=== PATIENT | female | born 1930 | race African-American/Black ===

== ENCOUNTER → 2017-01-16 | Outpatient (CLI) | payer MEDICARE, OTHER ==
[2017-01-16 13:30] LABS: ALANINE AMINOTRANSFERASE 23 U/L (9-52); ALBUMIN 4.3 g/dL (3.5-5.0); ALKALINE PHOSPHATASE 52 U/L (38-126); ASPARTATE AMINO TRANSFERASE 21 U/L (14-36); BILIRUBIN,DIRECT 0.3 mg/dL (0.0-0.4); BILIRUBIN,TOTAL 0.6 mg/dL (0.2-1.3); TOTAL PROTEIN 7.8 g/dL (6.3-8.2)
== END ==
LOC: OD 11:56
PROVIDERS: ATTEND Radiology Radiation Oncology
DX: C50.211 Malignant neoplasm of upper-inner quadrant of right female breast (principal); Z79.899 Other long term (current) drug therapy
CPT/HCPCS: 36415; 80076

== ENCOUNTER 2017-02-15 10:33 | Emergency (ER) | payer MEDICARE, OTHER ==
[2017-02-15] MEDS ORDERED: DIPH/PERTUSS(ACELL)/TETANUS VAC/PF 0.5 ML SYR (>=10YO) IM ONE (11:19)
[2017-02-15] MEDS ORDERED: SILVER SULFADIAZINE 1% CREAM 25 GM TP ONE (11:22)
[2017-02-15] MEDS ORDERED: ACETAMINOPHEN 325 MG TABLET PO ONE (11:22)
--- NOTE | 2017-02-15 11:30 | ER Document Report ---
HPI - HPI Patient complains to provider of: skin burn Onset: Just prior to arrival Onset/Duration: Sudden Quality of pain: Burning Pain Level: 3 Context: Patient was carrying a cup of coffee on a saucer and started to lose supply technician of the saucer spilling the coffee on her left breast. Patient's daughter removed her clothing, applied ice and then better to the burn. Patient denies any other areas of her skin that got burned. Patient is diabetic and family was concerned about the wound. Associated Symptoms: Other - Burn to left breast Exacerbated by: Denies Relieved by: Denies Similar symptoms previously: No Recently seen / treated by doctor: No - ROS ROS below otherwise negative: Yes Systems Reviewed and Negative: Yes All other systems reviewed and negative - CONSTITUTIONAL Constitutional: DENIES: Fever - GASTROINTESTINAL Gastrointestinal: DENIES: Nausea, Patient vomiting - REPRODUCTIVE Reproductive: DENIES: : - DERM Skin Color: Normal Skin Problems: Burn Past Medical History - General Information source: Patient, Relative - Social History Smoking Status: Never Smoker Chew tobacco use (# tins/day): No Frequency of alcohol use: None Drug Abuse: None Occupation: none Lives with: Family Family History: Malignancy Patient has suicidal ideation: No Patient has homicidal ideation: No - Past Medical History Cardiac Medical History: Reports: Hx Congestive Heart Failure, Hx Coronary Artery Disease, Hx Heart Attack, Hx Hypercholesterolemia, Hx Hypertension Pulmonary Medical History: Reports: Hx Bronchitis, Hx Pneumonia Denies: Hx Asthma, Hx COPD, Hx Tuberculosis Neurological Medical History: Denies: Hx Cerebrovascular Accident, Hx Seizures Endocrine Medical History: Reports: Hx Diabetes Mellitus Type 2 Renal/ Medical History: Reports: Hx Renal Insufficiency. Denies: Hx Peritoneal Dialysis Malignancy Medical History: Reports: Hx Breast Cancer GI Medical History: Reports: Hx Gastroesophageal Reflux Disease, Hx Ulcer, Hx Colonoscopy. Denies: Hx Hepatitis, Hx Hiatal Hernia Musculoskeltal Medical History: Reports Hx Arthritis, Reports Hx Musculoskeletal Trauma Traumatic Medical History: Reports: Hx Fractures Infectious Medical History: Denies: Hx Hepatitis Past Surgical History: Reports: Hx Appendectomy, Hx Cardiac Catheterization, Hx Hysterectomy, Hx Lumpectomy, Hx Mastectomy - Right lumpectomy. Denies: Hx Open Heart Surgery, Hx Pacemaker - Immunizations Immunizations up to date: Yes Hx Diphtheria, Pertussis, Tetanus Vaccination: No - UNKNOWN Hx Pneumococcal Vaccination: 07/24/12 Vertical Provider Document - CONSTITUTIONAL Agree With Documented VS: Yes Exam Limitations: No Limitations General Appearance: WD/WN, No Apparent Distress - INFECTION CONTROL TRAVEL OUTSIDE OF THE [place] IN LAST 30 DAYS: No - HEENT HEENT: Atraumatic, Normocephalic - NECK Neck: Normal Inspection, Supple - RESPIRATORY Respiratory: Breath Sounds Normal, No Respiratory Distress O2 Sat by Pulse Oximetry: 99 - CARDIOVASCULAR Cardiovascular: Regular Rhythm, No Murmur, Bradycardia Pulses: Normal: Radial - BACK Back: Normal Inspection - MUSCULOSKELETAL/EXTREMETIES Musculoskeletal/Extremeties: KIRSTEN GONZALEZ - NEURO Level of Consciousness: Awake, Alert Motor/Sensory: No Motor Deficit - DERM Integumentary: Warm, Dry Adult Front & Back Diagram: 1 - Superficial burn to left breast measuring 10 cm x 4 cm, no blistering Course - Vital Signs Vital signs: Temp Pulse Resp BP Pulse Ox 98.5 F 54 L 20 162/62 H 99 02/15/17 10:51 02/15/17 10:51 02/15/17 10:51 02/15/17 10:51 02/15/17 10:51 Discharge - Discharge Clinical Impression: Superficial burn, Hx of essential hypertension Condition: Stable Disposition: HOME, SELF-CARE Instructions: Silvadene Cream ([facility]), Tetanus Immunization Given ([facility]), Cottrell ( [facility]), Acetaminophen Additional Instructions: Return immediately for any new or worsening symptoms Followup with your primary care provider, call tomorrow to make a followup appointment Your blood pressure was mildly elevated today, recheck with your primary doctor to have this reevaluated Prescriptions: Silver Sulfadiazine [Silvadene 1% Cream 50 gm Tube] 1 applic TP BID #50 grams Referrals: LANA ALVAREZ MD [Primary Care Provider] - 02/18/17
[2017-02-15 12:21] VITALS: BP 136/54
== END 2017-02-15 11:57 | disposition home or self-care (01) ==
LOC: ER 10:33
DX: T21.01XA Burn of unspecified degree of chest wall, initial encounter (principal); X10.0XXA Contact with hot drinks, initial encounter; Z23 Encounter for immunization; I50.9 Heart failure, unspecified; I25.10 Atherosclerotic heart disease of native coronary artery without angina pectoris; E78.00 Pure hypercholesterolemia, unspecified; I11.0 Hypertensive heart disease with heart failure; E11.9 Type 2 diabetes mellitus without complications; K21.9 Gastro-esophageal reflux disease without esophagitis; I25.2 Old myocardial infarction; Z85.3 Personal history of malignant neoplasm of breast; Z90.710 Acquired absence of both cervix and uterus
CPT/HCPCS: 99283; 90471; 90715; A9270 ×2

== ENCOUNTER 2017-03-08 19:04 | Emergency (ER) | payer MEDICARE, OTHER ==
[2017-03-08 20:43] LABS: HEMATOCRIT 34.2 % (36.0-47.0); HEMOGLOBIN 11.4 g/dL (12.0-15.5); RED BLOOD COUNT 3.48 10^6/uL (3.72-5.28); WHITE BLOOD COUNT 6.9 10^3/uL (4.0-10.5)
[2017-03-08 20:44] LABS: ABSOLUTE EOSINOPHILS # (AUTO) 0.1 10^3/uL (0.0-0.6); ABSOLUTE LYMPHOCYTES (AUTO) 1.9 10^3/uL (0.5-4.7); ABSOLUTE MONOCYTES (AUTO) 0.8 10^3/uL (0.1-1.4); ABSOLUTE NEUT (AUTO) 4.1 10^3/uL (1.7-8.2); BASOPHILS % (AUTO) 0.3 % (0-2); EOSINOPHILS % (AUTO) 1.4 % (0-6); LYMPHOCYTES % (AUTO) 27.3 % (13-45); MEAN CORPUSCULAR HEMOGLOBIN 32.6 pg (27.0-33.4); MEAN CORPUSCULAR HGB CONC 33.2 g/dL (32.0-36.0); MEAN CORPUSCULAR VOLUME 98 fl (80-97); MONOCYTES % (AUTO) 11.6 % (3-13); SEGMENTED NEUTROPHILS % (AUTO) 59.4 % (42-78)
--- NOTE | 2017-03-08 21:03 | ER Document Report ---
ED General - General Chief Complaint: Tremor Stated Complaint: TREMORS,SHAKING Time Seen by Provider: 03/08/17 19:24 Notes: Patient is an 86-year-old female with past medical history of uncontrolled diabetes, hypertension, hyperlipidemia, morbid obesity who presents with a tremor for the past 3-4 days. Describes this as a persistent tremor that occurs anytime she tries to do anything. States this is causing her to have difficulty in her activities of daily living. She notes that she has intermittently had a tremor like this over the past several months but never to this degree of severity or persistence. She has not seen a primary care doctor regarding today's concerns. She has not noted anything seems to improve or worsen her symptoms. Denies any new medications or medication adjustments. Denies any head trauma. No nausea, vomiting, chest pain or shortness of breath. TRAVEL OUTSIDE OF THE [place] IN LAST 30 DAYS: No - Related Data Allergies/Adverse Reactions: simvastatin [Simvastatin] Adverse Reaction (Verified 03/08/17 19:09) Hepatic dysfunction Home Medications: Current Home Medications Gabapentin 300 mg PO TID 03/08/17 [History] Lisinopril [Prinivil] 20 mg PO DAILY 03/08/17 [History] Past Medical History - General Information source: Patient - Social History Smoking Status: Never Smoker Frequency of alcohol use: None Drug Abuse: None Lives with: Family Family History: Malignancy Patient has suicidal ideation: No Patient has homicidal ideation: No - Past Medical History Cardiac Medical History: Reports: Hx Congestive Heart Failure, Hx Coronary Artery Disease, Hx Heart Attack, Hx Hypercholesterolemia, Hx Hypertension Pulmonary Medical History: Reports: Hx Bronchitis, Hx Pneumonia Denies: Hx Asthma, Hx COPD, Hx Tuberculosis Neurological Medical History: Denies: Hx Cerebrovascular Accident, Hx Seizures Endocrine Medical History: Reports: Hx Diabetes Mellitus Type 2 Renal/ Medical History: Reports: Hx Renal Insufficiency. Denies: Hx Peritoneal Dialysis Malignancy Medical History: Reports: Hx Breast Cancer GI Medical History: Reports: Hx Gastroesophageal Reflux Disease, Hx Ulcer, Hx Colonoscopy. Denies: Hx Hepatitis, Hx Hiatal Hernia Musculoskeltal Medical History: Reports Hx Arthritis, Reports Hx Musculoskeletal Trauma Traumatic Medical History: Reports: Hx Fractures Infectious Medical History: Denies: Hx Hepatitis Past Surgical History: Reports: Hx Appendectomy, Hx Cardiac Catheterization, Hx Hysterectomy, Hx Lumpectomy, Hx Mastectomy - Right lumpectomy. Denies: Hx Open Heart Surgery, Hx Pacemaker - Immunizations Immunizations up to date: Yes Hx Diphtheria, Pertussis, Tetanus Vaccination: No - UNKNOWN Hx Pneumococcal Vaccination: 07/24/12 Review of Systems - Review of Systems Notes: Constitutional: Negative for fever. HENT: Negative for sore throat. Eyes: Negative for visual changes. Cardiovascular: Negative for chest pain. Respiratory: Negative for shortness of breath. Gastrointestinal: Negative for abdominal pain, vomiting or diarrhea. Genitourinary: Negative for dysuria. Musculoskeletal: Negative for back pain. Skin: Negative for rash. Neurological: Negative for headaches, weakness or numbness. 10 point ROS negative except as marked above and in HPI. Physical Exam - Vital signs Vitals: Temp Pulse Resp BP Pulse Ox 98.6 F 64 16 177/64 H 94 03/08/17 19:09 03/08/17 19:09 03/08/17 19:09 03/08/17 19:09 03/08/17 19:09 Interpretation: Hypertensive Notes: PHYSICAL EXAMINATION: GENERAL: Well-appearing, well-nourished and in no acute distress. HEAD: Atraumatic, normocephalic. EYES: Pupils equal round and reactive to light, extraocular movements intact, sclera anicteric, conjunctiva are normal. ENT: nares patent, oropharynx clear without exudates. Moist mucous membranes. NECK: Normal range of motion, supple without lymphadenopathy LUNGS: Breath sounds clear to auscultation bilaterally and equal. No wheezes rales or rhonchi. HEART: Regular rate and rhythm without murmurs ABDOMEN: Soft, nontender, normoactive bowel sounds. No guarding, no rebound. No masses appreciated. EXTREMITIES: Normal range of motion, no pitting or edema. No cyanosis. NEUROLOGICAL: Face symmetric. Tongue protrudes midline. Extraocular motions intact. Pupils are 2 mm and equally reactive. Normal speech. 5 out of 5 strength in both the distal and proximal upper and lower extremities bilaterally. Sensation is grossly intact throughout. Finger to nose testing normal. Pronator drift normal. Patient has an intention tremor in the bilateral upper extremities. PSYCH: Normal mood, normal affect. SKIN: Warm, Dry, normal turgor, no rashes or lesions noted. Course - Re-evaluation Re-evalutation: 03/08/17 21:01 Patient presents with an intention tremor but otherwise no neurologic deficit. She has no resting tremor to suggest Parkinson's disease. It is possible that she has a benign intention tremor although this would be unusual as abrupt presentation an 86-year-old female. Strength testing is normal in all extremities. Cerebellar testing is normal the patient does have marketed intention tremor. Will obtain basic laboratories to screen for an acute electrolyte abnormalities possible trigger although again I have a low clinical suspicion for this. Patient will require a neurology evaluation as an outpatient to better clarify the etiology of her symptoms. Patient is already bradycardic so a trial of a beta-yvonne is not prudent at this time. Otherwise at this time I do not suspect an acute life-threatening condition that would warrant hospitalization or further neurologic imaging on an emergent basis. I do not suspect an intracranial mass again given that she has no headache, no focal deficit, and her symptoms are bilateral and all extremities which would make a localized lesion to a single hemisphere in consistent with her exam. 03/09/17 00:18 Patient's laboratories demonstrate hyperglycemia but no evidence of diabetic ketoacidosis. Patient states her blood sugars typically run in the upper 200s. She has been given 2 units of insulin here with appropriate response. She has also been given 1 L of normal saline for a mild acute kidney injury. Informed the patient and her daughter at the bedside and the need to follow-up with both neurology and her primary doctor regarding her acute kidney injury and tremors. At this time will discharge with return precautions and follow-up recommendations. Verbal discharge instructions given a the bedside and opportunity for questions given. Medication warnings reviewed. Patient is in agreement with this plan and has verbalized understanding of return precautions and the need for primary care follow-up in the next 24-72 hours. - Vital Signs Vital signs: Temp Pulse Resp BP Pulse Ox 98.6 F 64 16 163/67 H 96 03/08/17 19:09 03/08/17 19:09 03/09/17 00:31 03/09/17 00:31 03/09/17 00:31 - Laboratory Result Diagrams: 03/08/17 20:31 03/08/17 20:31 Laboratory results interpreted by me: 03/08/17 03/08/17 03/08/17 20:31 20:31 23:32 RBC 3.48 L Hgb 11.4 L Hct 34.2 L MCV 98 H BUN 44 H Creatinine 1.74 H Est GFR ( Amer) 33 L Est GFR (Non-Af Amer) 28 L Glucose 421 H* Magnesium 2.4 H Creatine Kinase 145 H Urine Glucose (UA) >=500 H Discharge - Discharge Clinical Impression: Intention tremor, Hyperglycemia, Acute kidney injury Condition: Good Disposition: HOME, SELF-CARE Additional Instructions: Please follow-up with the neurologist next week for further evaluation of your intention tremor. Please return to the emergency department immediately if you develop weakness, numbness, vomiting, chest pain or confusion. Please also return if you have any additional symptoms that are concerning to you. Referrals: LANA ALVAREZ MD [Primary Care Provider] - Follow up as needed FARZANA LOVELACE MD [ACTIVE STAFF] - Follow up as needed
[2017-03-08 21:04] LABS: ALANINE AMINOTRANSFERASE 19 U/L (9-52); ALBUMIN 4.3 g/dL (3.5-5.0); ALKALINE PHOSPHATASE 70 U/L (38-126); ANION GAP 14 (5-19); ASPARTATE AMINO TRANSFERASE 18 U/L (14-36); BILIRUBIN,DIRECT 0.4 mg/dL (0.0-0.4); BILIRUBIN,TOTAL 0.7 mg/dL (0.2-1.3); BLOOD UREA NITROGEN 44 mg/dL (7-20); CALCIUM 9.3 mg/dL (8.4-10.2); CARBON DIOXIDE 23 mmol/L (22-30); CHLORIDE 100 mmol/L (98-107); CREATINE KINASE 145 U/L (30-135); CREATININE RESULT 1.74 mg/dL (0.52-1.25); MAGNESIUM 2.4 mg/dL (1.6-2.3); PHOSPHORUS 4.5 mg/dL (2.5-4.5); POTASSIUM 4.9 mmol/L (3.6-5.0)
[2017-03-08 21:12] LABS: GLUCOSE 421 mg/dL (75-110)
[2017-03-08] MEDS ORDERED: INSULIN LISPRO 100 UNIT/ML 3 ML VIAL SUBCUT ONE (21:31)
[2017-03-08] MEDS ORDERED: NORMAL SALINE 1000 ML 1,000 ML IV ONE (21:32)
[2017-03-08 23:45] LABS: APPEARANCE,URINE CLEAR; BILIRUBIN,URINE NEGATIVE (NEGATIVE); GLUCOSE, URINE >=500 mg/dL (NEGATIVE); KETONES,URINE NEGATIVE (NEGATIVE); LEUKOCYTE ESTERASE,URINE NEGATIVE (NEGATIVE); NITRITE,URINE NEGATIVE (NEGATIVE); PROTEIN,URINE NEGATIVE (NEGATIVE); URINE SPECIFIC GRAVITY 1.013; UROBILINOGEN,URINE NEGATIVE mg/dL (<2.0)
[2017-03-09 00:49] VITALS: BP 163/67
== END 2017-03-09 00:57 | disposition home or self-care (01) ==
LOC: ER 19:04
DX: N17.9 Acute kidney failure, unspecified (principal); R25.1 Tremor, unspecified; E11.9 Type 2 diabetes mellitus without complications; I10 Essential (primary) hypertension; Z79.899 Other long term (current) drug therapy
CPT/HCPCS: 99283; 96360; 36415; 82962; 82550; 83735; 84100; 85025; 80053; 81001; A9270; J7030; J1815

== ENCOUNTER 2017-03-11 14:59 | Emergency (ER) | payer MEDICARE, OTHER ==
[2017-03-11] MEDS ORDERED: NORMAL SALINE 500 ML IV ONE (15:52)
--- NOTE | 2017-03-11 15:55 | ER Document Report ---
ED Medical Screen (RME) - General Chief Complaint: High Blood Sugar Stated Complaint: BLOOD SUGAR PROBLEMS Time Seen by Provider: 03/11/17 15:41 Mode of Arrival: Ambulatory Information source: Patient, Relative Notes: This is an 86-year-old female with multiple medical problems include insulin- dependent diabetes who presents for evaluation of high blood sugar. She states that she has had difficulty controlling her blood sugar at home for the past few days. She has felt overall weak and has difficulty getting to the bathroom. She denies any abdominal pain, nausea, vomiting, dysuria. She has had no chest pain or shortness of breath. She reports compliance with her medication and I have greeted and performed a rapid initial assessment of this patient. A comprehensive ED assessment and evaluation of the patient, analysis of test results and completion of the medical decision making process will be conducted by additional ED providers. With her insulin regimen. TRAVEL OUTSIDE OF THE [place] IN LAST 30 DAYS: No - Related Data Allergies/Adverse Reactions: simvastatin [Simvastatin] Adverse Reaction (Verified 03/08/17 19:09) Hepatic dysfunction Past Medical History - General Information source: Patient, [facility] - Social History Frequency of alcohol use: None - Past Medical History Cardiac Medical History: Reports: Hx Congestive Heart Failure, Hx Coronary Artery Disease, Hx Heart Attack, Hx Hypercholesterolemia, Hx Hypertension Pulmonary Medical History: Reports: Hx Bronchitis, Hx Pneumonia Denies: Hx Asthma, Hx COPD, Hx Tuberculosis Neurological Medical History: Denies: Hx Cerebrovascular Accident, Hx Seizures Endocrine Medical History: Reports: Hx Diabetes Mellitus Type 2 Renal/ Medical History: Reports: Hx Renal Insufficiency. Denies: Hx Peritoneal Dialysis Malignancy Medical History: Reports: Hx Breast Cancer GI Medical History: Reports: Hx Gastroesophageal Reflux Disease, Hx Ulcer, Hx Colonoscopy. Denies: Hx Hepatitis, Hx Hiatal Hernia Musculoskeltal Medical History: Reports Hx Arthritis, Reports Hx Musculoskeletal Trauma Traumatic Medical History: Reports: Hx Fractures Infectious Medical History: Denies: Hx Hepatitis Past Surgical History: Reports: Hx Appendectomy, Hx Cardiac Catheterization, Hx Hysterectomy, Hx Lumpectomy, Hx Mastectomy - Right lumpectomy. Denies: Hx Open Heart Surgery, Hx Pacemaker - Immunizations Immunizations up to date: Yes Hx Diphtheria, Pertussis, Tetanus Vaccination: No - UNKNOWN Review of Systems - Review of Systems Constitutional: See HPI. denies: Chills, Fever EENT: No symptoms reported Cardiovascular: No symptoms reported Respiratory: No symptoms reported Gastrointestinal: No symptoms reported Genitourinary: No symptoms reported Musculoskeletal: No symptoms reported Hematologic/Lymphatic: No symptoms reported Neurological/Psychological: No symptoms reported Physical Exam - Vital signs Vitals: Temp Pulse Resp BP Pulse Ox 98.3 F 65 18 133/66 H 98 03/11/17 15:12 03/11/17 15:12 03/11/17 15:12 03/11/17 15:12 03/11/17 15:12 - General Notes: Frail elderly female who is pleasant and conversant and in no acute distress. - HEENT Head: Normocephalic, Atraumatic Eyes: Normal Extraocular movements intact: Yes Pupils: PERRL Mucous membranes: Moist - Respiratory Respiratory status: No respiratory distress Breath sounds: Normal. No: Rales, Rhonchi, Wheezing - Cardiovascular Rhythm: Regular Heart sounds: Normal auscultation, S1 appreciated, S2 appreciated Murmur: No - Abdominal Inspection: Normal Distension: No distension Bowel sounds: Normal Tenderness: Nontender - Extremities General upper extremity: Normal inspection General lower extremity: Normal inspection - Neurological Neuro grossly intact: Yes Cognition: Normal Orientation: AAOx4 - Psychological Associated symptoms: Normal affect, Normal mood - Skin Skin Temperature: Warm Skin Moisture: Dry Skin Color: Normal Course - Re-evaluation Re-evalutation: 03/11/17 17:37 Patient has remained asymptomatic here in the emergency department. Her repeat Accu-Chek after a 500 mL normal saline bolus was 285. She is appropriate for discharge home and outpatient management. She will follow up with primary care physician this week. Strict return precautions were discussed - Vital Signs Vital signs: Temp Pulse Resp BP Pulse Ox 98.3 F 65 18 133/66 H 98 03/11/17 15:12 03/11/17 15:12 03/11/17 15:12 03/11/17 15:12 03/11/17 15:12 - Laboratory Result Diagrams: 03/11/17 16:14 03/11/17 16:14 Laboratory results interpreted by me: 03/11/17 03/11/17 16:14 16:14 BUN 44 H Creatinine 1.78 H Est GFR ( Amer) 33 L Est GFR (Non-Af Amer) 27 L Glucose 328 H Total Protein 8.7 H Urine Glucose (UA) >=500 H Doctor's Discharge - Discharge Clinical Impression: Hyperglycemia Condition: Stable Disposition: HOME, SELF-CARE Additional Instructions: Diabetes You have an abnormally high blood sugar secondary to your diabetes. Uncontrolled high blood sugar leads to early heart disease, strokes, nerve damage, eye damage, and kidney damage. All diabetics should follow a diet designed to control the blood sugar. Overweight diabetics should exercise regularly and lose weight. If this is not sufficient to control the blood sugar, pills or insulin shots are necessary. Younger people who develop diabetes almost always require insulin daily. Home testing of blood sugars or urine sugar is required. Diabetic teaching is available to help you figure insulin doses and monitor the blood sugar. Call the physician if there is faintness, excess sleepiness, or very rapid breathing. If hypoglycemia (LOW blood sugar) develops, symptoms are shakiness, weakness, sweating, and confusion. In this case, you should eat or drink something with sugar at once. As discussed, increase your fluid intake. Follow up with your doctor tomorrow to discuss insulin regiment. Return to ER for fever, vomiting, abdominal pain, or worsening symptoms/concerns.
[2017-03-11 16:43] LABS: ABSOLUTE EOSINOPHILS # (AUTO) 0.1 10^3/uL (0.0-0.6); ABSOLUTE LYMPHOCYTES (AUTO) 1.7 10^3/uL (0.5-4.7); ABSOLUTE MONOCYTES (AUTO) 0.6 10^3/uL (0.1-1.4); ABSOLUTE NEUT (AUTO) 3.2 10^3/uL (1.7-8.2); BASOPHILS % (AUTO) 0.4 % (0-2); EOSINOPHILS % (AUTO) 1.2 % (0-6); HEMATOCRIT 36.8 % (36.0-47.0); HEMOGLOBIN 12.4 g/dL (12.0-15.5); HGB HCT DIFFERENCE 0.4; LYMPHOCYTES % (AUTO) 30.4 % (13-45); MEAN CORPUSCULAR HEMOGLOBIN 32.5 pg (27.0-33.4); MEAN CORPUSCULAR HGB CONC 33.7 g/dL (32.0-36.0); MEAN CORPUSCULAR VOLUME 96 fl (80-97); MONOCYTES % (AUTO) 10.7 % (3-13); RED BLOOD COUNT 3.82 10^6/uL (3.72-5.28); SEGMENTED NEUTROPHILS % (AUTO) 57.3 % (42-78); WHITE BLOOD COUNT 5.5 10^3/uL (4.0-10.5)
[2017-03-11 16:46] LABS: APPEARANCE,URINE CLEAR; BILIRUBIN,URINE NEGATIVE (NEGATIVE); GLUCOSE, URINE >=500 mg/dL (NEGATIVE); KETONES,URINE NEGATIVE (NEGATIVE); LEUKOCYTE ESTERASE,URINE NEGATIVE (NEGATIVE); NITRITE,URINE NEGATIVE (NEGATIVE); PROTEIN,URINE NEGATIVE (NEGATIVE); URINE SPECIFIC GRAVITY 1.007; UROBILINOGEN,URINE NEGATIVE mg/dL (<2.0)
[2017-03-11 16:50] LABS: VENOUS BLOOD BASE EXCESS 0.9 mmol/L; VENOUS BLOOD PCO2 55.3 mmHg (35-63); VENOUS BLOOD PH 7.32 (7.30-7.42)
[2017-03-11 17:03] LABS: ALANINE AMINOTRANSFERASE 24 U/L (9-52); ALBUMIN 4.6 g/dL (3.5-5.0); ALKALINE PHOSPHATASE 75 U/L (38-126); ANION GAP 14 (5-19); ASPARTATE AMINO TRANSFERASE 21 U/L (14-36); BILIRUBIN,DIRECT 0.3 mg/dL (0.0-0.4); BILIRUBIN,TOTAL 0.6 mg/dL (0.2-1.3); BLOOD UREA NITROGEN 44 mg/dL (7-20); CALCIUM 9.5 mg/dL (8.4-10.2); CARBON DIOXIDE 26 mmol/L (22-30); CHLORIDE 99 mmol/L (98-107); CREATININE RESULT 1.78 mg/dL (0.52-1.25); GLUCOSE 328 mg/dL (75-110); POTASSIUM 4.7 mmol/L (3.6-5.0); SODIUM 139.3 mmol/L (137-145); TOTAL PROTEIN 8.7 g/dL (6.3-8.2)
[2017-03-11 19:11] VITALS: BP 140/59
--- NOTE | 2017-03-11 21:13 | EKG REPORT ---
SEVERITY:- NORMAL ECG - SINUS RHYTHM : Confirmed by: Odette Alarcon 11-Mar-2017 21:12:26
== END 2017-03-11 17:55 | disposition home or self-care (01) ==
LOC: ER 14:59
DX: E11.65 Type 2 diabetes mellitus with hyperglycemia (principal); R53.1 Weakness
CPT/HCPCS: 93005; 99285; 96360; 51701; 36415; 82962; 85025; 80053; 81001; 82803; 93010; J7040

== ENCOUNTER 2017-03-22 11:26 | Inpatient (IN) | payer MEDICARE, OTHER ==
--- NOTE | 2017-03-22 12:27 | ER Document Report ---
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 Seen here 2 weeks ago with high blood sugars. Her doctor has been adjusting her insulin doses to get her sugars down. She reports she will get tremors, feet will get heavy numb and then she will fall down. She complains of pain from her neck all the way down her back. I have greeted and performed a rapid initial assessment of this patient. A comprehensive ED assessment and evaluation of the patient, analysis of test results and completion of the medical decision making process will be conducted by additional ED providers. TRAVEL OUTSIDE OF THE [place] IN LAST 30 DAYS: No - Related Data Allergies/Adverse Reactions: simvastatin [Simvastatin] Adverse Reaction (Verified 03/22/17 11:32) Hepatic dysfunction Past Medical History - Social History Chew tobacco use (# tins/day): No Frequency of alcohol use: None Drug Abuse: None - Past Medical History Cardiac Medical History: Reports: Hx Congestive Heart Failure, Hx Coronary Artery Disease, Hx Heart Attack, Hx Hypercholesterolemia, Hx Hypertension Pulmonary Medical History: Reports: Hx Bronchitis, Hx Pneumonia Denies: Hx Asthma, Hx COPD, Hx Tuberculosis Neurological Medical History: Denies: Hx Cerebrovascular Accident, Hx Seizures Endocrine Medical History: Reports: Hx Diabetes Mellitus Type 2 Renal/ Medical History: Reports: Hx Renal Insufficiency. Denies: Hx Peritoneal Dialysis Malignancy Medical History: Reports: Hx Breast Cancer GI Medical History: Reports: Hx Gastroesophageal Reflux Disease, Hx Ulcer, Hx Colonoscopy. Denies: Hx Hepatitis, Hx Hiatal Hernia Musculoskeltal Medical History: Reports Hx Arthritis, Reports Hx Musculoskeletal Trauma Traumatic Medical History: Reports: Hx Fractures Infectious Medical History: Denies: Hx Hepatitis Past Surgical History: Reports: Hx Appendectomy, Hx Cardiac Catheterization, Hx Hysterectomy, Hx Lumpectomy, Hx Mastectomy - Right lumpectomy. Denies: Hx Open Heart Surgery, Hx Pacemaker - Immunizations Immunizations up to date: Yes Hx Diphtheria, Pertussis, Tetanus Vaccination: No - UNKNOWN Physical Exam - Vital signs Vitals: Temp Pulse Resp BP Pulse Ox 98.1 F 85 16 125/71 95 03/22/17 11:32 03/22/17 11:32 03/22/17 11:32 03/22/17 11:32 03/22/17 11:32 Course - Vital Signs Vital signs: Temp Pulse Resp BP Pulse Ox 98.1 F 85 16 125/71 95 03/22/17 11:32 03/22/17 11:32 03/22/17 11:32 03/22/17 11:32 03/22/17 11:32
[2017-03-22 13:35] LABS: ABSOLUTE EOSINOPHILS # (AUTO) 0.1 10^3/uL (0.0-0.6); ABSOLUTE LYMPHOCYTES (AUTO) 2.3 10^3/uL (0.5-4.7); ABSOLUTE MONOCYTES (AUTO) 0.9 10^3/uL (0.1-1.4); ABSOLUTE NEUT (AUTO) 4.7 10^3/uL (1.7-8.2); BASOPHILS % (AUTO) 0.4 % (0-2); EOSINOPHILS % (AUTO) 0.9 % (0-6); HEMATOCRIT 37.3 % (36.0-47.0); HEMOGLOBIN 12.5 g/dL (12.0-15.5); HGB HCT DIFFERENCE 0.2; LYMPHOCYTES % (AUTO) 28.4 % (13-45); MEAN CORPUSCULAR HEMOGLOBIN 32.5 pg (27.0-33.4); MEAN CORPUSCULAR HGB CONC 33.6 g/dL (32.0-36.0); MEAN CORPUSCULAR VOLUME 97 fl (80-97); MONOCYTES % (AUTO) 11.6 % (3-13); RED BLOOD COUNT 3.85 10^6/uL (3.72-5.28); RED CELL DISTRIBUTION WIDTH 12.3 % (11.5-14.0); SEGMENTED NEUTROPHILS % (AUTO) 58.7 % (42-78); WHITE BLOOD COUNT 8.1 10^3/uL (4.0-10.5)
[2017-03-22 13:42] LABS: PROTHROMBIN TIME 13.4 SEC (11.4-15.4)
[2017-03-22 13:43] LABS: PARTIAL THROMBOPLASTIN TIME 29.3 SEC (23.5-35.8)
[2017-03-22 13:48] LABS: APPEARANCE,URINE CLEAR; BILIRUBIN,URINE NEGATIVE (NEGATIVE); GLUCOSE, URINE NEGATIVE (NEGATIVE); KETONES,URINE NEGATIVE (NEGATIVE); LEUKOCYTE ESTERASE,URINE NEGATIVE (NEGATIVE); NITRITE,URINE NEGATIVE (NEGATIVE); PROTEIN,URINE NEGATIVE (NEGATIVE); URINE SPECIFIC GRAVITY 1.005; UROBILINOGEN,URINE NEGATIVE mg/dL (<2.0)
[2017-03-22] MEDS: DILTIAZEM HCL/D5W 125 ML IV PRN (13:51)
[2017-03-22 14:02] LABS: ALANINE AMINOTRANSFERASE 23 U/L (9-52); ALBUMIN 4.4 g/dL (3.5-5.0); ALKALINE PHOSPHATASE 56 U/L (38-126); ANION GAP 15 (5-19); ASPARTATE AMINO TRANSFERASE 27 U/L (14-36); BILIRUBIN,DIRECT 0.3 mg/dL (0.0-0.4); BILIRUBIN,TOTAL 0.6 mg/dL (0.2-1.3); BLOOD UREA NITROGEN 59 mg/dL (7-20); CALCIUM 9.3 mg/dL (8.4-10.2); CARBON DIOXIDE 24 mmol/L (22-30); CHLORIDE 105 mmol/L (98-107); CREATINE KINASE 113 U/L (30-135); CREATININE RESULT 2.14 mg/dL (0.52-1.25); GLUCOSE 62 mg/dL (75-110); POTASSIUM 5.1 mmol/L (3.6-5.0); SODIUM 143.5 mmol/L (137-145); TOTAL PROTEIN 8.4 g/dL (6.3-8.2)
--- NOTE | 2017-03-22 14:09 | RADIOLOGY REPORT (SQ) ---
EXAM DESCRIPTION: CHEST SINGLE VIEW COMPLETED DATE/TIME: 03/22/2017 1:56 pm REASON FOR STUDY: afib cp COMPARISON: 03/17/2015 EXAM PARAMETERS: NUMBER OF VIEWS: One view. TECHNIQUE: Single frontal radiographic view of the chest acquired. RADIATION DOSE: NA LIMITATIONS: None. FINDINGS: LUNGS AND PLEURA: No opacities, masses or pneumothorax. No pleural effusion. MEDIASTINUM AND HILAR STRUCTURES: No masses. Contour normal. HEART AND VASCULAR STRUCTURES: Heart normal in size. Normal vasculature. BONES: No acute findings. HARDWARE: None in the chest. OTHER: No other significant finding. IMPRESSION: NO ACUTE RADIOGRAPHIC FINDING IN THE CHEST. TECHNICAL DOCUMENTATION: JOB ID: [id number]
[2017-03-22 14:24] LABS: CREATINE KINASE MB 1.4 ng/mL (<4.55)
[2017-03-22 14:31] LABS: THYROID STIMULATING HORMONE 2.68 uIU/mL (0.47-4.68)
[2017-03-22 14:38] LABS: TROPONIN I 0.064 ng/mL
--- NOTE | 2017-03-22 15:09 | ER Document Report ---
ED General - General Chief Complaint: Fall Injury Stated Complaint: BACK PAIN Time Seen by Provider: 03/22/17 12:20 TRAVEL OUTSIDE OF THE [place] IN LAST 30 DAYS: No - HPI Patient complains to provider of: Multiple falls generalized weakness Notes: Patient is coming in for evaluation of generalized weakness multiple falls. Patient has had multiple visits here to the ER for weakness and multiple falls. Patient has a history of dementia. Most HPI is obtained from family members states generally weak ongoing for the past few months. This is been intermittent. Patient family denies any fever chills nausea vomiting diarrhea. Denies any significant trauma denies any recent falls today. Patient mostly complains of back pain has been ongoing states no acute back pain. - Related Data Allergies/Adverse Reactions: simvastatin [Simvastatin] Adverse Reaction (Verified 03/22/17 11:32) Hepatic dysfunction Past Medical History - Social History Smoking Status: Never Smoker Chew tobacco use (# tins/day): No Frequency of alcohol use: None Drug Abuse: None Family History: Reviewed & Not Pertinent, Malignancy Patient has suicidal ideation: No Patient has homicidal ideation: No - Past Medical History Cardiac Medical History: Reports: Hx Congestive Heart Failure, Hx Coronary Artery Disease, Hx Heart Attack, Hx Hypercholesterolemia, Hx Hypertension Pulmonary Medical History: Reports: Hx Bronchitis, Hx Pneumonia Denies: Hx Asthma, Hx COPD, Hx Tuberculosis Neurological Medical History: Denies: Hx Cerebrovascular Accident, Hx Seizures Endocrine Medical History: Reports: Hx Diabetes Mellitus Type 2 Renal/ Medical History: Reports: Hx Renal Insufficiency. Denies: Hx Peritoneal Dialysis Malignancy Medical History: Reports: Hx Breast Cancer GI Medical History: Reports: Hx Gastroesophageal Reflux Disease, Hx Ulcer, Hx Colonoscopy. Denies: Hx Hepatitis, Hx Hiatal Hernia Musculoskeltal Medical History: Reports Hx Arthritis, Reports Hx Musculoskeletal Trauma Traumatic Medical History: Reports: Hx Fractures Infectious Medical History: Denies: Hx Hepatitis Past Surgical History: Reports: Hx Appendectomy, Hx Cardiac Catheterization, Hx Hysterectomy, Hx Lumpectomy, Hx Mastectomy - Right lumpectomy. Denies: Hx Open Heart Surgery, Hx Pacemaker - Immunizations Immunizations up to date: Yes Hx Diphtheria, Pertussis, Tetanus Vaccination: No - UNKNOWN Hx Pneumococcal Vaccination: 07/24/12 Review of Systems - Review of Systems Notes: History of dementia -: Yes ROS unobtainable due to patient's medical condition Physical Exam - Vital signs Vitals: Temp Pulse Resp BP Pulse Ox 98.1 F 85 16 125/71 95 03/22/17 11:32 03/22/17 11:32 03/22/17 11:32 03/22/17 11:32 03/22/17 11:32 Interpretation: Normal - General General appearance: Appears well, Alert - HEENT Head: Normocephalic, Atraumatic Eyes: Normal Pupils: PERRL - Respiratory Respiratory status: No respiratory distress Chest status: Nontender Breath sounds: Normal Chest palpation: Normal - Cardiovascular Rhythm: Regular Heart sounds: Normal auscultation Murmur: No - Abdominal Inspection: Normal Distension: No distension Bowel sounds: Normal Tenderness: Nontender Organomegaly: No organomegaly - Back Back: Normal, Nontender - Extremities General upper extremity: Normal inspection, Nontender General lower extremity: Normal inspection, Nontender - Neurological Neuro grossly intact: Yes [place] Coma Scale Eye Opening: Spontaneous [place] Coma Scale Motor: Obeys Commands Speech: Normal - Psychological Associated symptoms: Normal affect, Normal mood - Skin Skin Temperature: Warm Skin Moisture: Dry Skin Color: Normal Course - Re-evaluation Re-evalutation: 03/22/17 15:36 Patient's EKG shows a flutter patient's initial heart rate was very tachycardic concern about A. fib a flutter with RVR. Patient was initially started on Cardizem. Patient remains to be in a flutter and elevated flutter rate. Patient case was discussed with PCP patient will be admitted for further evaluation and IMCU - Vital Signs Vital signs: Temp Pulse Resp BP Pulse Ox 98.1 F 85 17 118/69 97 03/22/17 11:32 03/22/17 11:32 03/22/17 14:31 03/22/17 14:31 03/22/17 14:31 - Laboratory Result Diagrams: 03/22/17 13:07 03/22/17 13:07 Laboratory results interpreted by me: 03/22/17 03/22/17 13:07 13:27 Potassium 5.1 H BUN 59 H Creatinine 2.14 H Est GFR ( Amer) 26 L Est GFR (Non-Af Amer) 22 L Glucose 62 L Total Protein 8.4 H Urine Ascorbic Acid 40 H Critical Care Note - Critical Care Note Total time excluding time spent on procedures (mins): 35 Comments: Multiple evaluations with patient controlling Cardizem drip Discharge - Discharge Clinical Impression: New onset atrial flutter Diabetes mellitus, type 2 Qualifiers: Diabetes mellitus complication status: with unspecified complications Diabetes mellitus nursing home insulin use: unspecified nursing home insulin use status Qualified Code(s): E11.8 - Type 2 diabetes mellitus with unspecified complications Dementia Qualifiers: Dementia type: unspecified type Dementia behavioral disturbance: without behavioral disturbance Qualified Code(s): F03.90 - Unspecified dementia without behavioral disturbance Condition: Fair Disposition: ADMITTED INPATIENT Admitting Provider: Erin Unit Admitted: [facility]
[2017-03-22] MEDS ORDERED: GLUCAGON,HUMAN RECOMB 1 MG INJ IM PRN (16:05)
[2017-03-22] MEDS ORDERED: DEXTROSE 50%-WATER 25 GM/50 ML DISP.SYRIN IV PRN ×2 (16:05)
[2017-03-22] MEDS ORDERED: DEXTROSE 40% GEL 15 GM TUBE PO PRN ×2 (16:05)
--- NOTE | 2017-03-22 16:42 | PDOC H&P ---
History of Present Illness Admission Date/PCP: 03/22/17 15:24 SUKI CHURCH MD Patient complains of: 1w legs shake. Cant walk. Falls. 1w mild chest pressure daily with effort. Rest relieves. History of Present Illness: JOSE ZALDIVAR is a 86 year old female with diabetes since 1983 requiring big increases in insulin in last 2 weeks for [id number]. Since 2002 neuropathy. Since 2013 falls. Since 2015 dementia. November MMSE21. Today in office, shook with assisted standing & walking. Had cogwheeling rigidity in arms and tremor resting & intention. Bradykinesia. Lives alone but cant anymore. Rate in office was 70. In ER rhythm fluctuated between fast afib and normal sinus. Was given diltiazem drip. Past Medical History Cardiac Medical History: Reports: Congestive Heart Failure - 2013 mild mrLuis A Lynch., Coronary Artery Disease - 2014 nonobstructing, Hyperlipidema, Hypertension Pulmonary Medical History: Denies: Asthma, Chronic Obstructive Pulmonary Disease (COPD), Tuberculosis Neurological Medical History: Denies: Seizures Endocrine Medical History: Reports: Diabetes Mellitus Type 2, Obesity Renal/ Medical History: Reports: Chronic Kidney Disease Malignancy Medical History: Reports: Breast Cancer - 2010 Rductal invasive T1c surgery radiation ansatrozole GI Medical History: Reports: Gastroesophageal Reflux Disease, Peptic Ulcer Disease - 2003 Hpylori negative Denies: Hepatitis, Hiatal Hernia Musculoskeltal Medical History: Reports: Arthritis - B sciatica djd hips L [id number] RrotatorCuff Psychiatric Medical History: Reports: None Traumatic Medical History: Reports: None Hematology: Denies: Anemia, Sickle Cell Disease Infectious Medical History: Reports: None Past Surgical History Past Surgical History: Reports: Appendectomy, Cardiac Catheterization, Hysterectomy, Mastectomy - Right lumpectomy Denies: Amputation, Pacemaker Social History Information Source: [facility] Records Lives with: Alone Smoking Status: Never Smoker Frequency of Alcohol Use: None Hx Recreational Drug Use: No Hx Prescription Drug Abuse: No - Advance Directive Resuscitation Status: Do Not Resuscitate Family History Family History: Malignancy Parental Family History Reviewed: Yes Children Family History Reviewed: Yes Sibling(s) Family History Reviewed.: Yes Medication/Allergy Home Medications: Furosemide [Lasix 40 mg Tablet] 40 mg PO BID 12/21/14 Insulin Aspart [Novolog Insulin (Aspart) 100 unit/mL] 40 units SUBCUT MEALS 07/28 Insulin Glargine,Hum.rec.anlog [Lantus] 60 unit SQ BID 12/21/14 Ranolazine [Ranexa] 500 mg PO Q12 12/21/14 Lactulose 20 gm PO DAILY 03/17/15 Ranitidine HCl [Zantac] 300 mg PO DAILY 03/17/15 Aspirin [Aspirin 81 mg Chewable Tablet] 81 mg PO DAILY #100 tab.chew 03/18/15 Atorvastatin Calcium 10 mg PO DAILY #30 tablet 03/18/15 Gabapentin 300 mg PO Q8 03/08/17 Lisinopril [Prinivil] 20 mg PO DAILY 03/08/17 Allergies/Adverse Reactions: simvastatin [Simvastatin] Adverse Reaction (Verified 03/22/17 11:32) Hepatic dysfunction Review of Systems Constitutional: PRESENT: headache(s), weakness. ABSENT: fever(s), weight loss Nose, Mouth, and Throat: ABSENT: sore throat Cardiovascular: PRESENT: chest pain, dyspnea on exertion, orthropnea Respiratory: ABSENT: cough Gastrointestinal: ABSENT: abdominal pain, constipation, diarrhea, hematochezia, melena, vomiting Genitourinary: ABSENT: dysuria, hematuria Integumentary: ABSENT: rash Neurological: PRESENT: abnormal gait, confusion, frequent falls, lack of coordination, memory loss, weakness. ABSENT: numbness Physical Exam Vital Signs: Temp Pulse Resp BP Pulse Ox 98.1 F 85 18 119/89 H 97 03/22/17 11:35 03/22/17 11:35 03/22/17 15:36 03/22/17 15:36 03/22/17 15:36 General appearance: PRESENT: mild distress Ear exam: PRESENT: TM's normal bilaterally Mouth exam: PRESENT: moist Throat exam: ABSENT: tonsillogmegaly Neck exam: ABSENT: carotid bruit, lymphadenopathy, tenderness, thyromegaly, tracheal deviation Respiratory exam: PRESENT: clear to auscultation yinka Cardiovascular exam: PRESENT: irregular rhythm. ABSENT: diastolic murmur, systolic murmur GI/Abdominal exam: ABSENT: mass, organolmegaly, tenderness Extremities exam: ABSENT: pedal edema Neurological exam: PRESENT: oriented to person, oriented to place, oriented to time, abnormal gait, ataxia, CN II-XII grossly intact, motor sensory deficit - pin+ feet. HeelToShin+. Diffuse gross tremor getting up with help. Unstable stance. Motor 5of5. ABSENT: reflexes normal - no Aj Focused psych exam: PRESENT: other - recall 0of3 in 3min. Results Laboratory Results: Abnormal - 24 hr 03/22/17 03/22/17 13:07 13:27 Potassium 5.1 H BUN 59 H Creatinine 2.14 H Est GFR ( Amer) 26 L Est GFR (Non-Af Amer) 22 L Glucose 62 L Total Protein 8.4 H Urine Ascorbic Acid 40 H Impressions: Chest X-Ray 03/22/17 13:22 IMPRESSION: NO ACUTE RADIOGRAPHIC FINDING IN THE CHEST. Assessment & Plan - Diagnosis (1) Paroxysmal a-fib Is this a current diagnosis for this admission?: YesPlan: Rapid ventricular response to 150s. Suspect contributes to exercise intolerance and falls. Diltiazem drip today. 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 Too many falls to live alone. Needs PT at SNF. 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 Stop furosemide, jaylyn, gabapentin. - Time Time Spent: 50 to 70 Minutes Medications reviewed and adjusted accordingly: Yes Anticipated discharge: SNF Within: Other - Inpatient Certification Medical Necessity: Failure to Improve With Outpatient Therapy, Significant Comorbidiites Make Outpatient Treatment Too Risky, Need Close Monitoring Due to Risk of Patient Decompensation, Need For IV Fluids, Need For Continuous Telemetry Monitoring, Risk of Complication if Not Cared For in Hospital, Risk of Diagnosis Which Will Require Inpatient Eval/Care/Monitoring
[2017-03-22] MEDS: 1/2 NORMAL SALINE 1,000 ML IV PRN (20:17)
[2017-03-22] MEDS: FAMOTIDINE 20 MG TABLET PO SCH (22:40)
[2017-03-22] MEDS: RANOLAZINE 500 MG TAB.SR.12H PO SCH (22:40)
[2017-03-22] MEDS: ATORVASTATIN CALCIUM 10 MG TABLET PO SCH (22:40)
[2017-03-22] MEDS: INSULIN DETEMIR 100 UNIT/ML 3 ML PEN SUBCUT SCH (22:40)
--- NOTE | 2017-03-23 05:42 | PDOC PROGRESS REPORT ---
Subjective Progress Note for:: 03/23/17 Subjective:: Generally better. No chest pain. Convinced she can walk. Does not want SNF. Physical Exam Vital Signs: Temp Pulse Resp BP Pulse Ox 98 F 65 20 112/55 L 98 03/23/17 04:00 03/23/17 04:01 03/23/17 04:00 03/23/17 04:01 03/23/17 04:00 Intake & Output 03/21/17 03/22/17 03/23/17 07:59 07:59 07:59 Intake Total 637 Output Total 650 Balance -13 Weight 201 lb 15.095 oz General appearance: PRESENT: no acute distress Respiratory exam: PRESENT: clear to auscultation yinka Cardiovascular exam: PRESENT: irregular rhythm. ABSENT: diastolic murmur, systolic murmur GI/Abdominal exam: ABSENT: mass, organolmegaly, tenderness Extremities exam: ABSENT: pedal edema Neurological exam: ABSENT: oriented to situation Psychiatric exam: ABSENT: appropriate affect Focused psych exam: PRESENT: delusional - in denial over neurologic decline and risk of falls Results Laboratory Results: 03/22/17 03/23/17 19:01 01:09 Troponin I 0.055 0.038 Impressions: Chest X-Ray 03/22/17 13:22 IMPRESSION: NO ACUTE RADIOGRAPHIC FINDING IN THE CHEST. Assessment & Plan - Diagnosis (1) Paroxysmal a-fib Is this a current diagnosis for this admission?: YesPlan: rate controlled on 5mg/h. Switch to po 120/d. SC ruled out. 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 Sinemet. See what discharge planning & family can do. 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
[2017-03-23] MEDS: INSULIN LISPRO 100 UNIT/ML 3 ML VIAL SUBCUT SCH ×3 (08:07→17:21)
[2017-03-23 08:52] LABS: ANION GAP 13 (5-19); BLOOD UREA NITROGEN 56 mg/dL (7-20); CALCIUM 8.9 mg/dL (8.4-10.2); CARBON DIOXIDE 22 mmol/L (22-30); CHLORIDE 108 mmol/L (98-107); CREATININE RESULT 1.89 mg/dL (0.52-1.25); GLUCOSE 127 mg/dL (75-110); POTASSIUM 5.1 mmol/L (3.6-5.0)
[2017-03-23] MEDS: LACTULOSE SYRUP 20 GM/30 ML UDCUP PO SCH (09:06)
[2017-03-23] MEDS: RANOLAZINE 500 MG TAB.SR.12H PO SCH ×2 (09:07→22:08)
[2017-03-23] MEDS: CARBIDOPA/LEVODOPA 10-100 MG TABLET PO SCH ×2 (09:07→22:08)
[2017-03-23] MEDS: FAMOTIDINE 20 MG TABLET PO SCH ×2 (09:07→22:08)
[2017-03-23] MEDS: ASPIRIN 81 MG TABLET, CHEWABLE PO SCH (09:07)
[2017-03-23] MEDS: DILTIAZEM HCL/D5W 125 ML IV PRN (09:08)
[2017-03-23] MEDS ORDERED: (PENDING PHARMACY ID) (Ranitidine Hcl [Zantac] 300 MG) PO SCH (10:00)
[2017-03-23] MEDS: INSULIN DETEMIR 100 UNIT/ML 3 ML PEN SUBCUT SCH (10:11)
[2017-03-23] MEDS: DILTIAZEM HCL 120 MG CAP.SR.24H PO SCH (10:11)
[2017-03-23] MEDS: 1/2 NORMAL SALINE 1,000 ML IV PRN (16:43)
[2017-03-23] MEDS ORDERED: INSULIN DETEMIR 100 UNIT/ML 3 ML PEN SUBCUT SCH (22:00)
[2017-03-23] MEDS: ATORVASTATIN CALCIUM 10 MG TABLET PO SCH (22:08)
[2017-03-24 06:10] LABS: ANION GAP 11 (5-19); BLOOD UREA NITROGEN 52 mg/dL (7-20); CALCIUM 8.8 mg/dL (8.4-10.2); CARBON DIOXIDE 26 mmol/L (22-30); CHLORIDE 109 mmol/L (98-107); CREATININE RESULT 1.84 mg/dL (0.52-1.25); GLUCOSE 89 mg/dL (75-110); SODIUM 145.7 mmol/L (137-145)
--- NOTE | 2017-03-24 07:33 | PDOC PROGRESS REPORT ---
Subjective Progress Note for:: 03/24/17 Subjective:: walkered 100' Physical Exam Vital Signs: Temp Pulse Resp BP Pulse Ox 98.2 F 74 20 147/78 H 100 03/24/17 04:02 03/24/17 04:02 03/24/17 04:02 03/24/17 04:02 03/24/17 04:02 Intake & Output 03/22/17 03/23/17 03/24/17 07:59 07:59 07:59 Intake Total 1271 2207 Output Total 1250 2600 Balance 21 -393 Weight 197 lb 12.074 oz 203 lb 0.732 oz General appearance: PRESENT: no acute distress Respiratory exam: PRESENT: clear to auscultation yinka Cardiovascular exam: ABSENT: clicks, irregular rhythm, systolic murmur GI/Abdominal exam: ABSENT: mass, organolmegaly, tenderness Extremities exam: ABSENT: pedal edema Neurological exam: PRESENT: oriented to situation, other - no tremor or rigidity on sinemet Psychiatric exam: PRESENT: appropriate affect Results Laboratory Results: 03/24/17 05:18 03/23/17 03/24/17 07:39 05:18 Sodium 143.0 145.7 H Potassium 5.1 H 5.0 Chloride 108 H 109 H Carbon Dioxide 22 26 Anion Gap 13 11 BUN 56 H 52 H Creatinine 1.89 H 1.84 H Est GFR ( Amer) 30 L 31 L Est GFR (Non-Af Amer) 25 L 26 L Glucose 127 H 89 Calcium 8.9 8.8 03/22/17 03/23/17 03/23/17 19:01 01:09 07:39 Troponin I 0.055 0.038 0.043 Impressions: Chest X-Ray 03/22/17 13:22 IMPRESSION: NO ACUTE RADIOGRAPHIC FINDING IN THE CHEST. 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 Wont need SNF this time. 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 Decreasing insulin as resistance decreases. Home when dose stable (5) CKD (chronic kidney disease) stage 4, GFR 15-29 ml/min Is this a current diagnosis for this admission?: YesPlan: improving on ivf
[2017-03-24] MEDS ORDERED: INSULIN LISPRO 100 UNIT/ML 3 ML VIAL SUBCUT SCH (08:00)
[2017-03-24] MEDS: INSULIN LISPRO 100 UNIT/ML 3 ML VIAL SUBCUT SCH ×3 (08:42→16:34)
[2017-03-24] MEDS: LACTULOSE SYRUP 20 GM/30 ML UDCUP PO SCH (09:52)
[2017-03-24] MEDS: RANOLAZINE 500 MG TAB.SR.12H PO SCH ×2 (09:53→22:17)
[2017-03-24] MEDS: CARBIDOPA/LEVODOPA 10-100 MG TABLET PO SCH ×2 (09:54→22:18)
[2017-03-24] MEDS: ASPIRIN 81 MG TABLET, CHEWABLE PO SCH (09:54)
[2017-03-24] MEDS: LUBIPROSTONE 24 MCG CAPSULE PO SCH ×2 (09:54→17:08)
[2017-03-24] MEDS: FAMOTIDINE 20 MG TABLET PO SCH ×2 (09:54→22:18)
[2017-03-24] MEDS: DILTIAZEM HCL 120 MG CAP.SR.24H PO SCH (09:54)
[2017-03-24] MEDS: 1/2 NORMAL SALINE 1,000 ML IV PRN (09:59)
[2017-03-24] MEDS ORDERED: INSULIN DETEMIR 100 UNIT/ML 3 ML PEN SUBCUT SCH (22:00)
[2017-03-24] MEDS: ATORVASTATIN CALCIUM 10 MG TABLET PO SCH (22:18)
[2017-03-25 06:05] LABS: ANION GAP 12 (5-19); BLOOD UREA NITROGEN 39 mg/dL (7-20); CALCIUM 8.9 mg/dL (8.4-10.2); CARBON DIOXIDE 22 mmol/L (22-30); CHLORIDE 111 mmol/L (98-107); CREATININE RESULT 1.54 mg/dL (0.52-1.25); GLUCOSE 70 mg/dL (75-110); POTASSIUM 4.9 mmol/L (3.6-5.0); SODIUM 144.8 mmol/L (137-145)
[2017-03-25] MEDS ORDERED: INSULIN DETEMIR 100 UNIT/ML 3 ML PEN SUBCUT SCH (08:00)
--- NOTE | 2017-03-25 08:00 | PDOC PROGRESS REPORT ---
Subjective Progress Note for:: 03/25/17 Subjective:: no complaints. Wants to walk here but needs her walker. Physical Exam Vital Signs: Temp Pulse Resp BP Pulse Ox 98.8 F 68 20 139/68 H 100 03/25/17 00:04 03/25/17 07:00 03/25/17 00:04 03/25/17 00:04 03/25/17 00:04 Intake & Output 03/23/17 03/24/17 03/25/17 07:59 07:59 07:59 Intake Total 1271 2207 2316 Output Total 1250 2600 2201 Balance 21 -393 115 Weight 197 lb 12.074 oz 203 lb 0.732 oz 201 lb 11.567 oz General appearance: PRESENT: no acute distress Respiratory exam: PRESENT: clear to auscultation yinka Cardiovascular exam: PRESENT: irregular rhythm. ABSENT: diastolic murmur, systolic murmur, tachycardia GI/Abdominal exam: ABSENT: mass, organolmegaly, tenderness Extremities exam: ABSENT: pedal edema Neurological exam: PRESENT: oriented to situation Psychiatric exam: PRESENT: appropriate affect Results Laboratory Results: 03/25/17 05:24 03/25/17 05:24 Sodium 144.8 Potassium 4.9 Chloride 111 H Carbon Dioxide 22 Anion Gap 12 BUN 39 H Creatinine 1.54 H Est GFR ( Amer) 38 L Est GFR (Non-Af Amer) 32 L Glucose 70 L Calcium 8.9 Impressions: Chest X-Ray 03/22/17 13:22 IMPRESSION: NO ACUTE RADIOGRAPHIC FINDING IN THE CHEST. 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 Decrease levemir 50. Probably home tomorrow. (5) CKD (chronic kidney disease) stage 4, GFR 15-29 ml/min Is this a current diagnosis for this admission?: YesPlan: cr down to 1.5
[2017-03-25] MEDS: INSULIN LISPRO 100 UNIT/ML 3 ML VIAL SUBCUT SCH ×3 (08:50→17:27)
[2017-03-25] MEDS: FAMOTIDINE 20 MG TABLET PO SCH ×2 (09:41→22:15)
[2017-03-25] MEDS: DILTIAZEM HCL 120 MG CAP.SR.24H PO SCH (09:41)
[2017-03-25] MEDS: CARBIDOPA/LEVODOPA 10-100 MG TABLET PO SCH ×2 (09:41→22:15)
[2017-03-25] MEDS: RANOLAZINE 500 MG TAB.SR.12H PO SCH ×2 (09:41→22:15)
[2017-03-25] MEDS: ASPIRIN 81 MG TABLET, CHEWABLE PO SCH (09:42)
--- NOTE | 2017-03-25 09:46 | EKG REPORT ---
SEVERITY:- ABNORMAL ECG - ATRIAL FLUTTER, A-RATE 263 BORDERLINE T ABNORMALITIES, INFERIOR LEADS : Confirmed by: Odette Alarcon 25-Mar-2017 09:44:55
[2017-03-25] MEDS: LACTULOSE SYRUP 20 GM/30 ML UDCUP PO SCH (09:47)
[2017-03-25] MEDS: LUBIPROSTONE 24 MCG CAPSULE PO SCH ×2 (11:54→17:27)
--- NOTE | 2017-03-25 18:41 | XCELERA REPORT ---
[address] [address] Transthoracic Echocardiogram Report Name: JOSE ZALDIVAR Age: 86 yrs Gender: Female : 1930 Patient Status: Inpatient Patient Location: 3S\S\334\S\A Study Date: 03/25/2017 10:47 AM Height: 67 in Weight: 201 lb BSA: 2.0 m2 Procedure: A complete two-dimensional transthoracic echocardiogram was performed (2D, M-mode, spectral and color flow Doppler). The study was technically difficult with many images being suboptimal in quality. Reason For Study: new ib flutter Ordering Physician: LANA ALVAREZ Performed By: Rosa Hammond Interpretation Summary The study was technically difficult with many images being suboptimal in quality. The left ventricular ejection fraction is normal. There is mild concentric left ventricular hypertrophy. The left ventricle is grossly normal size. Regional wall motion abnormalities cannot be excluded due to limited visualization. LV diastolic function could not be adequately assessed due to atrial fibrilation. Right ventricular function cannot be assessed due to poor image quality. The right ventricle is grossly normal size. The right atrium is normal. The left atrium is mildly dilated. There is a mild amount of mitral regurgitation There is no mitral valve stenosis. There is no aortic valve stenosis No aortic regurgitation is present. There is a trace or physiologic amount of tricuspid regurgitation Tricuspid regurgitation jet envelope not well defined to measure RV systolic pressure accurately. The aortic root is not well visualized. The inferior vena cava was not well visualized There is no pericardial effusion. MMode/2D Measurements \T\ Calculations RVDd: 2.4 cm LVIDd: 3.9 cm FS: 35.9 % Ao root diam: 3.0 cm IVSd: 0.95 cm LVIDs: 2.5 cm EDV(Teich): 65.5 ml LVPWd: 0.95 cmESV(Teich): 22.1 ml Ao root area: 6.9 cm2 EF(Teich): 66.2 % LVOT diam: 1.9 cm LVOT area: 2.9 cm2 Doppler Measurements \T\ Calculations MV E max chin: MV dec slope: Ao V2 max: LV V1 max P.4 cm/sec 445.4 cm/sec2 159.0 cm/sec 4.0 mmHg MV A max chin: MV dec time: Ao max PG: LV V1 max: 40.3 cm/sec 0.13 sec 10.1 mmHg 99.9 cm/sec MV E/A: 1.5 BRANDY(V,D): 1.8 cm2 PA V2 max: TR max chin: 118.4 cm/sec 240.5 cm/sec PA max P.6 mmHgTR max P.1 mmHg Left Ventricle The left ventricle is grossly normal size. There is mild concentric left ventricular hypertrophy. The left ventricular ejection fraction is normal. LV diastolic function could not be adequately assessed due to atrial fibrilation. Regional wall motion abnormalities cannot be excluded due to limited visualization. Right Ventricle The right ventricle is grossly normal size. There is normal right ventricular wall thickness. Right ventricular function cannot be assessed due to poor image quality. Atria The right atrium is normal. The left atrium is mildly dilated. Interarterial septum not well visualized and not well dopplered. Cannot comment on ASD/PFO presence. Mitral Valve The mitral valve is grossly normal. There is no mitral valve stenosis. There is a mild amount of mitral regurgitation. Aortic Valve The aortic valve is mildly calcified. There is no aortic valve stenosis. No aortic regurgitation is present. Tricuspid Valve The tricuspid valve is not well visualized secondary to technical limitations. There is no tricuspid stenosis. There is a trace or physiologic amount of tricuspid regurgitation. Tricuspid regurgitation jet envelope not well defined to measure RV systolic pressure accurately. Pulmonic Valve The pulmonic valve is not well visualized. Great Vessels The aortic root is not well visualized. The inferior vena cava was not well visualized. Effusions There is no pericardial effusion. : LANA ALVAREZ > Odette Alarcon
[2017-03-25] MEDS: 1/2 NORMAL SALINE 1,000 ML IV PRN (19:31)
[2017-03-25] MEDS: ATORVASTATIN CALCIUM 10 MG TABLET PO SCH (22:15)
[2017-03-25] MEDS ORDERED: INSULIN DETEMIR 100 UNIT/ML 3 ML PEN SUBCUT ONE (22:39)
--- NOTE | 2017-03-26 07:26 | PDOC DISCHARGE SUMMARY ---
General - Admit/Disc Date/PCP Admission Date/Primary Care Provider: 03/22/17 15:58 SUKI CHURCH MD Discharge Date: 03/26/17 - Discharge Diagnosis (1) Paroxysmal a-fib Is this a current diagnosis for this admission?: Yes (2) Vascular dementia Is this a current diagnosis for this admission?: Yes (3) Parkinsonism Is this a current diagnosis for this admission?: Yes (4) Type 2 diabetes mellitus with diabetic polyneuropathy Is this a current diagnosis for this admission?: Yes (5) CKD (chronic kidney disease) stage 4, GFR 15-29 ml/min Is this a current diagnosis for this admission?: Yes - Additional Information Resuscitation Status: Do Not Resuscitate Discharge Diet: Diabetic Discharge Activity: Activity As Tolerated Home Medications: Ranolazine [Ranexa] 500 mg PO Q12 12/21/14 Lactulose 20 gm PO DAILY 03/17/15 Ranitidine HCl [Zantac] 300 mg PO DAILY 03/17/15 Aspirin [Aspirin 81 mg Chewable Tablet] 81 mg PO DAILY #100 tab.chew 03/18/15 Atorvastatin Calcium 10 mg PO DAILY #30 tablet 03/18/15 Carbidopa/Levodopa [Sinemet 10-100 mg Tablet] 1 tab PO Q12 #60 tablet 03/26/17 Diltiazem HCl [Cardizem Cd 120 mg Capsule] 120 mg PO DAILY #30 cap.sr.24h Insulin Aspart [Novolog Insulin (Aspart) 100 unit/mL] 15 units SUBCUT MEALS # 1500 unit 03/26/17 Insulin Glargine,Hum.rec.anlog [Lantus Solostar] 45 unit SQ QHS #1500 ml History of Present Illness Patient complains of: cant walk History of Present Illness: JOSE ZALDIVAR is a 86 year old female with diabetes since 1983 requiring big increases in insulin in last 2 weeks for [id number]. Since 2002 neuropathy. Since 2013 falls. Since 2016 dementia. November MMSE21. Today in office, shook with assisted standing & walking. Had cogwheeling rigidity in arms and tremor resting & intention. Bradykinesia. Lives alone but cant anymore. Rate in office was 70. In ER rhythm fluctuated between fast afib and normal sinus. Was given diltiazem drip. Hospital Course Hospital Course: Intermittant afib with rate in 150s in ER was controlled by diltiazem drip 5mg/ h then 120mg po daily. Sinemet was stated. Walking, tremor, and rigidity improved. She walkered 100' with PT who said PT was unnecessary. Insulin had to be scaled back from recent higher doses that were needed for loss of control. Daughters have arranged to be at home with her. SNF will not be needed now. Physical Exam Vital Signs: Temp Pulse Resp BP Pulse Ox 98.0 F 75 20 130/70 H 97 03/25/17 23:55 03/26/17 02:00 03/25/17 23:55 03/25/17 23:55 03/25/17 23:55 Intake & Output 03/24/17 03/25/17 03/26/17 07:59 07:59 07:59 Intake Total 2207 2916 3805 Output Total 2600 2201 700 Balance -968 185 0645 Weight 203 lb 0.732 oz 201 lb 11.567 oz 202 lb 2.622 oz General appearance: PRESENT: no acute distress Respiratory exam: PRESENT: clear to auscultation yinka Cardiovascular exam: PRESENT: irregular rhythm. ABSENT: diastolic murmur, systolic murmur, tachycardia GI/Abdominal exam: ABSENT: mass, organolmegaly, tenderness Extremities exam: ABSENT: pedal edema Neurological exam: PRESENT: oriented to situation Psychiatric exam: PRESENT: appropriate affect Results Laboratory Results: 03/25/17 05:24 03/22/17 03/23/17 03/23/17 19:01 01:09 07:39 Troponin I 0.055 0.038 0.043 Labs- Last Values WBC 8.1 10^3/uL (4.0-10.5) 03/22/17 13:07 RBC 3.85 10^6/uL (3.72-5.28) 03/22/17 13:07 Hgb 12.5 g/dL (12.0-15.5) 03/22/17 13:07 Hct 37.3 % (36.0-47.0) 03/22/17 13:07 MCV 97 fl (80-97) 03/22/17 13:07 MCH 32.5 pg (27.0-33.4) 03/22/17 13:07 MCHC 33.6 g/dL (32.0-36.0) 03/22/17 13:07 RDW 12.3 % (11.5-14.0) 03/22/17 13:07 Plt Count 227 10^3/uL (150-450) 03/22/17 13:07 Seg Neutrophils % 58.7 % (42-78) 03/22/17 13:07 Lymphocytes % 28.4 % (13-45) 03/22/17 13:07 Monocytes % 11.6 % (3-13) 03/22/17 13:07 Eosinophils % 0.9 % (0-6) 03/22/17 13:07 Basophils % 0.4 % (0-2) 03/22/17 13:07 Absolute Neutrophils 4.7 10^3/uL (1.7-8.2) 03/22/17 13:07 Absolute Lymphocytes 2.3 10^3/uL (0.5-4.7) 03/22/17 13:07 Absolute Monocytes 0.9 10^3/uL (0.1-1.4) 03/22/17 13:07 Absolute Eosinophils 0.1 10^3/uL (0.0-0.6) 03/22/17 13:07 Absolute Basophils 0.0 10^3/uL (0.0-0.2) 03/22/17 13:07 PT 13.4 SEC (11.4-15.4) 03/22/17 13:07 INR 0.95 03/22/17 13:07 APTT 29.3 SEC (23.5-35.8) 03/22/17 13:07 Sodium 144.8 mmol/L (137-145) 03/25/17 05:24 Potassium 4.9 mmol/L (3.6-5.0) 03/25/17 05:24 Chloride 111 mmol/L (98-107) H 03/25/17 05:24 Carbon Dioxide 22 mmol/L (22-30) 03/25/17 05:24 Anion Gap 12 (5-19) 03/25/17 05:24 BUN 39 mg/dL (7-20) H 03/25/17 05:24 Creatinine 1.54 mg/dL (0.52-1.25) H 03/25/17 05:24 Est GFR ( Amer) 38 (>60) L 03/25/17 05:24 Est GFR (Non-Af Amer) 32 (>60) L 03/25/17 05:24 Glucose 70 mg/dL (75-110) L 03/25/17 05:24 POC Glucose 127 mg/dL (70-110) H 03/26/17 06:05 Calcium 8.9 mg/dL (8.4-10.2) 03/25/17 05:24 Total Bilirubin 0.6 mg/dL (0.2-1.3) 03/22/17 13:07 Direct Bilirubin 0.3 mg/dL (0.0-0.4) 03/22/17 13:07 Indirect Bilirubin Not Reportable 03/22/17 13:07 Neonat Total Bilirubin Not Reportable 03/22/17 13:07 AST 27 U/L (14-36) 03/22/17 13:07 ALT 23 U/L (9-52) 03/22/17 13:07 Alkaline Phosphatase 56 U/L (38-126) 03/22/17 13:07 Creatine Kinase 113 U/L (30-135) 03/22/17 13:07 CK-MB (CK-2) 1.40 ng/mL (<4.55) 03/22/17 13:07 Troponin I 0.043 ng/mL 03/23/17 07:39 Total Protein 8.4 g/dL (6.3-8.2) H 03/22/17 13:07 Albumin 4.4 g/dL (3.5-5.0) 03/22/17 13:07 TSH 2.68 uIU/mL (0.47-4.68) 03/22/17 13:07 Free T4 1.07 ng/dL (0.78-2.19) 03/22/17 13:07 Urine Color YELLOW 03/22/17 13:27 Urine Appearance CLEAR 03/22/17 13:27 Urine pH 5.0 (5.0-9.0) 03/22/17 13:27 Ur Specific [place] 1.005 03/22/17 13:27 Urine Protein NEGATIVE mg/dL (NEGATIVE) 03/22/17 13:27 Urine Glucose (UA) NEGATIVE mg/dL (NEGATIVE) 03/22/17 13:27 Urine Ketones NEGATIVE mg/dL (NEGATIVE) 03/22/17 13:27 Urine Blood NEGATIVE (NEGATIVE) 03/22/17 13:27 Urine Nitrite NEGATIVE (NEGATIVE) 03/22/17 13:27 Urine Bilirubin NEGATIVE (NEGATIVE) 03/22/17 13:27 Urine Urobilinogen NEGATIVE mg/dL (<2.0) 03/22/17 13:27 Ur Leukocyte Esterase NEGATIVE (NEGATIVE) 03/22/17 13:27 Urine WBC (Auto) 1 /HPF 03/22/17 13:27 U Hyaline Cast (Auto) 4 /LPF 03/22/17 13:27 Urine Ascorbic Acid 40 (NEGATIVE) H 03/22/17 13:27 Impressions: Chest X-Ray 03/22/17 13:22 IMPRESSION: NO ACUTE RADIOGRAPHIC FINDING IN THE CHEST. Qualifiers PATEINT BEING DISCHARGED WITH ANY OF THE FOLLOWING DIAGNOSIS?: No Plan Discharge Plan: home. OV 2w Time Spent: Less than 30 Minutes
[2017-03-26] MEDS: LACTULOSE SYRUP 20 GM/30 ML UDCUP PO SCH (10:13)
[2017-03-26] MEDS: INSULIN LISPRO 100 UNIT/ML 3 ML VIAL SUBCUT SCH ×2 (10:13→10:24)
[2017-03-26] MEDS: LUBIPROSTONE 24 MCG CAPSULE PO SCH (10:13)
[2017-03-26] MEDS: FAMOTIDINE 20 MG TABLET PO SCH (10:14)
[2017-03-26] MEDS: ASPIRIN 81 MG TABLET, CHEWABLE PO SCH (10:14)
[2017-03-26] MEDS: DILTIAZEM HCL 120 MG CAP.SR.24H PO SCH (10:15)
[2017-03-26] MEDS: CARBIDOPA/LEVODOPA 10-100 MG TABLET PO SCH (10:15)
[2017-03-26] MEDS: RANOLAZINE 500 MG TAB.SR.12H PO SCH (10:16)
[2017-03-26 10:42] VITALS: BP 101/65
--- NOTE | 2017-04-07 16:38 | DISCHARGE SUMMARY E ---
Discharge Summary NAME: JOSE ZALDIVAR : 1930 AGE: 86Y ADMITTED: 03/22/2017 DISCHARGED: 03/26/2017 ADDENDUM: Her chronic congestive heart failure was from valvular heart disease, namely mitral regurgitation. It was not systolic or diastolic. DICTATING PHYSICIAN: LANA ALVAREZ M.D. [id number] PHY#: [id number] ID: [id number] JOB#: [id number] ACCT: [id number] cc:LANA ALVAREZ M.D. >
--- NOTE | 2017-04-15 10:02 | DISCHARGE SUMMARY E ---
Discharge Summary NAME: JOSE ZALDIVAR : 1930 AGE: 86Y ADMITTED: 03/22/2017 DISCHARGED: 03/26/2017 ADDENDUM: Her heart failure was chronic diastolic congestive heart failure. DICTATING PHYSICIAN: LANA ALVAREZ M.D. [id number] PHY#: [id number] ID: [id number] JOB#: [id number] ACCT: [id number] cc:LANA ALVAREZ M.D. >
== END 2017-03-26 11:46 | disposition home health service (06) | DRG 309 ==
LOC: ER 11:26 → UNDOADMIN 15:24 → EH 15:24 → 3S 15:58 → EH 16:49
PROVIDERS: ADMIT Family Medicine; ATTEND Family Medicine
DX: I48.0 Paroxysmal atrial fibrillation (principal); I13.0 Hypertensive heart and chronic kidney disease with heart failure and stage 1 through stage 4 chronic kidney disease, or unspecified chronic kidney disease; N18.4 Chronic kidney disease, stage 4 (severe); I50.32 Chronic diastolic (congestive) heart failure; F01.50 Vascular dementia, unspecified severity, without behavioral disturbance, psychotic disturbance, mood disturbance, and anxiety; G21.4 Vascular parkinsonism; F02.80 Dementia in other diseases classified elsewhere, unspecified severity, without behavioral disturbance, psychotic disturbance, mood disturbance, and anxiety; E11.42 Type 2 diabetes mellitus with diabetic polyneuropathy; Z66 Do not resuscitate; I25.10 Atherosclerotic heart disease of native coronary artery without angina pectoris; E78.5 Hyperlipidemia, unspecified; K21.9 Gastro-esophageal reflux disease without esophagitis; M16.0 Bilateral primary osteoarthritis of hip; I25.2 Old myocardial infarction; E66.9 Obesity, unspecified; Z68.31 Body mass index [BMI] 31.0-31.9, adult; Z85.3 Personal history of malignant neoplasm of breast; Z60.2 Problems related to living alone; Z79.899 Other long term (current) drug therapy; Z87.11 Personal history of peptic ulcer disease; Z79.4 Long term (current) use of insulin; Z79.82 Long term (current) use of aspirin; Z90.10 Acquired absence of unspecified breast and nipple; Z90.710 Acquired absence of both cervix and uterus; Z88.8 Allergy status to other drugs, medicaments and biological substances; Z91.81 History of falling; Z80.9 Family history of malignant neoplasm, unspecified
CPT/HCPCS: 36415; 71010; 80048; 80053; 81001; 82550; 82553; 82962; 84439; 84443; 84484; 85025; 85610; 85730; 93005; 93010; 93306; 99291; G8978-GP; G8979-GP; G8980-GP; J1815; J3490

== ENCOUNTER 2017-07-17 15:39 | Observation (INO) | payer MEDICARE, OTHER ==
--- NOTE | 2017-07-17 16:46 | ER Document Report ---
ED General - General Chief Complaint: Anxiety Stated Complaint: WEAKNESS Time Seen by Provider: 07/17/17 16:40 Mode of Arrival: Medic Information source: Patient, Relative TRAVEL OUTSIDE OF THE [place] IN LAST 30 DAYS: No - HPI Onset: Yesterday Quality of pain: Pressure - CHEST, INTERMITTENT Severity: Mild Associated symptoms: Shortness of breath, Weakness. denies: Chills, Nonproductive cough, Productive cough, Fever Exacerbated by: Other - ANY ACTIVITY Relieved by: Denies Similar symptoms previously: Yes - NOT RECENT Recently seen / treated by doctor: No - Related Data Allergies/Adverse Reactions: simvastatin [Simvastatin] Adverse Reaction (Verified 03/22/17 11:32) Hepatic dysfunction Home Medications: Current Home Medications Furosemide [Lasix 40 mg Tablet] 40 mg PO BID 07/17/17 [History] Metformin HCl [Metformin HCl ER] 500 mg PO BID 07/17/17 [History] Ropinirole HCl 0.25 mg PO TID 07/17/17 [History] Tramadol HCl 50 mg PO DAILY 07/17/17 [History] Past Medical History - General Information source: Patient, Relative - Social History Smoking Status: Never Smoker Chew tobacco use (# tins/day): No Frequency of alcohol use: None Drug Abuse: None Lives with: Family Family History: Malignancy Patient has suicidal ideation: No Patient has homicidal ideation: No - Past Medical History Cardiac Medical History: Reports: Hx Congestive Heart Failure - 2013 mild mr. Stiffness., Hx Coronary Artery Disease - 2014 nonobstructing, Hx Heart Attack, Hx Hypercholesterolemia, Hx Hypertension Pulmonary Medical History: Reports: Hx Bronchitis, Hx Pneumonia Denies: Hx Asthma, Hx COPD, Hx Tuberculosis Neurological Medical History: Denies: Hx Cerebrovascular Accident, Hx Seizures Endocrine Medical History: Reports: Hx Diabetes Mellitus Type 2 Renal/ Medical History: Reports: Hx Renal Insufficiency. Denies: Hx Peritoneal Dialysis Malignancy Medical History: Reports: Hx Breast Cancer - 2010 Rductal invasive T1c surgery radiation ansatrozole GI Medical History: Reports: Hx Gastroesophageal Reflux Disease, Hx Ulcer, Hx Colonoscopy. 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 Denies: Hx Open Heart Surgery, Hx Pacemaker - Immunizations Immunizations up to date: Yes Hx Diphtheria, Pertussis, Tetanus Vaccination: Yes Hx Pneumococcal Vaccination: 07/24/12 Review of Systems - Review of Systems Constitutional: See HPI EENT: No symptoms reported Cardiovascular: See HPI Respiratory: See HPI Gastrointestinal: No symptoms reported Genitourinary: No symptoms reported Female Genitourinary: Post menopausal Musculoskeletal: No symptoms reported Skin: No symptoms reported Neurological/Psychological: Weakness - GENERALIZED Physical Exam - Vital signs Vitals: Resp 16 07/17/17 16:55 Course - Vital Signs Vital signs: Temp Pulse Resp BP Pulse Ox 21 H 125/58 L 07/17/17 22:04 07/17/17 21:01 - Laboratory Result Diagrams: 07/17/17 17:00 07/17/17 17:00 Laboratory results interpreted by me: 07/17/17 07/17/17 17:00 17:00 Hct 34.7 L BUN 31 H Creatinine 1.59 H Est GFR ( Amer) 37 L Est GFR (Non-Af Amer) 31 L - Diagnostic Test Radiology reviewed: Image reviewed, Reports reviewed - EKG Interpretation by Me EKG shows normal: Sinus rhythm, [place], Intervals, QRS Complexes. abnormal: ST-T Waves - SLIGHT INF. T ABNLS, NS Rate: Normal Rhythm: NSR, APC's - Consults DR. ALVAREZ Time consulted: 22:42 Reason for consultation: 07/17/17 22:44 AGREES WITH OUTPATIENT OBSERVATION - TELEMETRY Consulted provider: will see as inpatient Discharge - Discharge Clinical Impression: Chest pain with moderate risk for cardiac etiology, Dyspnea on exertion Condition: Good Disposition: ADMITTED OBSERVATION Admitting Provider: Erin Unit Admitted: Telemetry
--- NOTE | 2017-07-17 17:18 | RADIOLOGY REPORT (SQ) ---
EXAM DESCRIPTION: CHEST SINGLE VIEW COMPLETED DATE/TIME: 07/17/2017 5:03 pm REASON FOR STUDY: chest pain COMPARISON: None. EXAM PARAMETERS: NUMBER OF VIEWS: One view. TECHNIQUE: Single frontal radiographic view of the chest acquired. RADIATION DOSE: NA LIMITATIONS: None. FINDINGS: LUNGS AND PLEURA: Chronic interstitial changes are present. There is no infiltrate or eff usion. MEDIASTINUM AND HILAR STRUCTURES: No masses. Contour normal. HEART AND VASCULAR STRUCTURES: Heart normal in size. Normal vasculature. BONES: No acute findings. HARDWARE: None in the chest. OTHER: No other significant finding. IMPRESSION: NO ACUTE RADIOGRAPHIC FINDING IN THE CHEST. TECHNICAL DOCUMENTATION: JOB ID: [id number]
[2017-07-17 17:55] LABS: ABSOLUTE EOSINOPHILS # (AUTO) 0.1 10^3/uL (0.0-0.6); ABSOLUTE LYMPHOCYTES (AUTO) 1.9 10^3/uL (0.5-4.7); ABSOLUTE MONOCYTES (AUTO) 0.8 10^3/uL (0.1-1.4); ABSOLUTE NEUT (AUTO) 4.6 10^3/uL (1.7-8.2); BASOPHILS % (AUTO) 0.5 % (0-2); EOSINOPHILS % (AUTO) 1.4 % (0-6); HEMATOCRIT 34.7 % (36.0-47.0); HEMOGLOBIN 12.2 g/dL (12.0-15.5); HGB HCT DIFFERENCE 1.9; LYMPHOCYTES % (AUTO) 25.6 % (13-45); MEAN CORPUSCULAR HEMOGLOBIN 32.6 pg (27.0-33.4); MEAN CORPUSCULAR VOLUME 93 fl (80-97); RED BLOOD COUNT 3.72 10^6/uL (3.72-5.28); RED CELL DISTRIBUTION WIDTH 12.2 % (11.5-14.0); SEGMENTED NEUTROPHILS % (AUTO) 61.5 % (42-78); WHITE BLOOD COUNT 7.4 10^3/uL (4.0-10.5)
[2017-07-17 18:05] LABS: APPEARANCE,URINE CLEAR; BILIRUBIN,URINE NEGATIVE (NEGATIVE); GLUCOSE, URINE NEGATIVE (NEGATIVE); KETONES,URINE NEGATIVE (NEGATIVE); LEUKOCYTE ESTERASE,URINE NEGATIVE (NEGATIVE); NITRITE,URINE NEGATIVE (NEGATIVE); PROTEIN,URINE NEGATIVE (NEGATIVE); URINE SPECIFIC GRAVITY 1.004; UROBILINOGEN,URINE NEGATIVE mg/dL (<2.0)
[2017-07-17 18:27] LABS: ALANINE AMINOTRANSFERASE 22 U/L (9-52); ALBUMIN 4.4 g/dL (3.5-5.0); ALKALINE PHOSPHATASE 51 U/L (38-126); ANION GAP 15 (5-19); ASPARTATE AMINO TRANSFERASE 22 U/L (14-36); BILIRUBIN,DIRECT 0.4 mg/dL (0.0-0.4); BILIRUBIN,TOTAL 0.7 mg/dL (0.2-1.3); BLOOD UREA NITROGEN 31 mg/dL (7-20); CALCIUM 9.8 mg/dL (8.4-10.2); CARBON DIOXIDE 26 mmol/L (22-30); CHLORIDE 102 mmol/L (98-107); CREATINE KINASE 134 U/L (30-135); CREATINE KINASE MB 0.76 ng/mL (<4.55); CREATININE RESULT 1.59 mg/dL (0.52-1.25); GLUCOSE 97 mg/dL (75-110); POTASSIUM 3.8 mmol/L (3.6-5.0); SODIUM 142.9 mmol/L (137-145); TROPONIN I 0.02 ng/mL
[2017-07-17] MEDS ORDERED: NITROGLYCERIN 2% OINTMENT 1 GM PACKET TP ONE (21:50)
[2017-07-18] MEDS ORDERED: 1/2 NORMAL SALINE 1,000 ML IV PRN (01:48)
[2017-07-18] MEDS ORDERED: INFLUENZA ADLT QUAD (36MOS+) 2017-18 VAC 0.5 ML SYR IM PRN (03:02)
[2017-07-18 03:22] LABS: CREATINE KINASE MB 0.61 ng/mL (<4.55); TROPONIN I 0.02 ng/mL
[2017-07-18] MEDS ORDERED: NITROGLYCERIN 0.4 MG/TAB 25 TAB/BOTTLE SL PRN (05:08)
[2017-07-18] MEDS ORDERED: DEXTROSE 40% GEL 15 GM TUBE PO PRN ×2 (05:08)
[2017-07-18] MEDS ORDERED: DEXTROSE 50%-WATER 25 GM/50 ML DISP.SYRIN IV PRN ×2 (05:08)
[2017-07-18] MEDS ORDERED: GLUCAGON,HUMAN RECOMB 1 MG INJ SUBCUT PRN (05:08)
--- NOTE | 2017-07-18 07:01 | PDOC H&P ---
History of Present Illness Admission Date/PCP: 07/18/17 02:07 LANA ALVAREZ MD Patient complains of: chest pain dyspnea History of Present Illness: JOSE ZALDIVAR is a 86 year old female with 1 week intermittant effort L chest pressure radiating to shoulder. 2014 dominant R coronary 30%. Rest 10%. Ejection >65. Past Medical History Cardiac Medical History: Reports: Congestive Heart Failure - 2013 mild mr. 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 [id number] RrotatorCuff Psychiatric Medical History: Reports: Dementia Hematology: Denies: Anemia, Sickle Cell Disease Past Surgical History Past Surgical History: Reports: Appendectomy, Cardiac Catheterization, Hysterectomy, Mastectomy - Right lumpectomy Denies: Amputation, Pacemaker Social History Information Source: Office Lives with: Family Smoking Status: Never Smoker Frequency of Alcohol Use: None Hx Recreational Drug Use: No Drugs: None Hx Prescription Drug Abuse: No - Advance Directive Resuscitation Status: Full Code Family History Family History: Malignancy Parental Family History Reviewed: Yes Children Family History Reviewed: Yes Sibling(s) Family History Reviewed.: Yes Medication/Allergy Home Medications: Ranitidine HCl [Zantac] 300 mg PO DAILY 03/17/15 Aspirin [Aspirin 81 mg Chewable Tablet] 81 mg PO DAILY #100 tab.chew 03/18/15 Atorvastatin Calcium 10 mg PO DAILY #30 tablet 03/18/15 Furosemide [Lasix 40 mg Tablet] 40 mg PO BID 07/17/17 Ropinirole HCl 0.25 mg PO TID 07/17/17 Tramadol HCl 50 mg PO DAILY 07/17/17 Diltiazem HCl [Diltiazem 24Hr Cd] 240 mg PO DAILY 07/18/17 Dulaglutide [Trulicity] 1.5 mg SQ ASDIR PRN 07/18/17 Insulin Glargine,Hum.rec.anlog [Lantus Solostar] 34 unit SQ QHS 07/18/17 Metformin HCl [Glucophage] 1,000 mg PO BID 07/18/17 Allergies/Adverse Reactions: simvastatin [Simvastatin] Adverse Reaction (Verified 03/22/17 11:32) Hepatic dysfunction Review of Systems Constitutional: PRESENT: weight loss. ABSENT: fever(s), headache(s) Nose, Mouth, and Throat: ABSENT: sore throat Cardiovascular: PRESENT: chest pain, dyspnea on exertion, orthropnea Respiratory: ABSENT: cough Gastrointestinal: ABSENT: abdominal pain, constipation, diarrhea, hematochezia, vomiting Genitourinary: ABSENT: dysuria, hematuria Physical Exam Vital Signs: Temp Pulse Resp BP Pulse Ox 98.6 F 56 L 16 152/60 H 100 07/18/17 01:55 07/18/17 02:07 07/18/17 01:55 07/18/17 01:55 07/18/17 01:55 Intake & Output 07/16/17 07/17/17 07/18/17 07:59 07:59 07:59 Weight 175 lb 0.752 oz General appearance: PRESENT: no acute distress Eye exam: ABSENT: conjunctival injection Mouth exam: PRESENT: moist Neck exam: ABSENT: lymphadenopathy, tenderness, thyromegaly, tracheal deviation Respiratory exam: PRESENT: clear to auscultation yinka Cardiovascular exam: PRESENT: irregular rhythm - bigeminy. ABSENT: diastolic murmur, systolic murmur GI/Abdominal exam: ABSENT: mass, organolmegaly, tenderness Extremities exam: ABSENT: pedal edema Neurological exam: PRESENT: oriented to time - 2016 Psychiatric exam: PRESENT: appropriate affect Results Laboratory Results: Labs- All tests 24 hr 07/17/17 07/17/17 07/17/17 16:31 17:00 17:00 WBC 7.4 RBC 3.72 Hgb 12.2 Hct 34.7 L MCV 93 MCH 32.6 MCHC 35.0 RDW 12.2 Plt Count 236 Seg Neutrophils % 61.5 Lymphocytes % 25.6 Monocytes % 11.0 Eosinophils % 1.4 Basophils % 0.5 Absolute Neutrophils 4.6 Absolute Lymphocytes 1.9 Absolute Monocytes 0.8 Absolute Eosinophils 0.1 Absolute Basophils 0.0 Sodium 142.9 Potassium 3.8 Chloride 102 Carbon Dioxide 26 Anion Gap 15 BUN 31 H Creatinine 1.59 H Est GFR ( Amer) 37 L Est GFR (Non-Af Amer) 31 L Glucose 97 Calcium 9.8 Total Bilirubin 0.7 Direct Bilirubin 0.4 Indirect Bilirubin Not Reportable Neonat Total Bilirubin Not Reportable AST 22 ALT 22 Alkaline Phosphatase 51 Creatine Kinase 134 CK-MB (CK-2) Troponin I NT-Pro-B Natriuret Pep Total Protein 8.0 Albumin 4.4 Urine Color STRAW Urine Appearance CLEAR Urine pH 5.0 Ur Specific [place] 1.004 Urine Protein NEGATIVE Urine Glucose (UA) NEGATIVE Urine Ketones NEGATIVE Urine Blood NEGATIVE Urine Nitrite NEGATIVE Urine Bilirubin NEGATIVE Urine Urobilinogen NEGATIVE Ur Leukocyte Esterase NEGATIVE Urine WBC (Auto) 1 Urine RBC (Auto) 0 U Hyaline Cast (Auto) 2 Urine Bacteria (Auto) TRACE Squamous Epi Cells Auto <1 Urine Mucus (Auto) RARE Urine Ascorbic Acid NEGATIVE 07/17/17 07/17/17 07/18/17 17:00 20:15 02:46 WBC RBC Hgb Hct MCV MCH MCHC RDW Plt Count Seg Neutrophils % Lymphocytes % Monocytes % Eosinophils % Basophils % Absolute Neutrophils Absolute Lymphocytes Absolute Monocytes Absolute Eosinophils Absolute Basophils Sodium Potassium Chloride Carbon Dioxide Anion Gap BUN Creatinine Est GFR ( Amer) Est GFR (Non-Af Amer) Glucose Calcium Total Bilirubin Direct Bilirubin Indirect Bilirubin Neonat Total Bilirubin AST ALT Alkaline Phosphatase Creatine Kinase 117 CK-MB (CK-2) 0.76 Troponin I 0.020 0.020 NT-Pro-B Natriuret Pep 208 Total Protein Albumin Urine Color Urine Appearance Urine pH Ur Specific [place] Urine Protein Urine Glucose (UA) Urine Ketones Urine Blood Urine Nitrite Urine Bilirubin Urine Urobilinogen Ur Leukocyte Esterase Urine WBC (Auto) Urine RBC (Auto) U Hyaline Cast (Auto) Urine Bacteria (Auto) Squamous Epi Cells Auto Urine Mucus (Auto) Urine Ascorbic Acid 07/18/17 02:46 WBC RBC Hgb Hct MCV MCH MCHC RDW Plt Count Seg Neutrophils % Lymphocytes % Monocytes % Eosinophils % Basophils % Absolute Neutrophils Absolute Lymphocytes Absolute Monocytes Absolute Eosinophils Absolute Basophils Sodium Potassium Chloride Carbon Dioxide Anion Gap BUN Creatinine Est GFR ( Amer) Est GFR (Non-Af Amer) Glucose Calcium Total Bilirubin Direct Bilirubin Indirect Bilirubin Neonat Total Bilirubin AST ALT Alkaline Phosphatase Creatine Kinase CK-MB (CK-2) 0.61 Troponin I 0.020 NT-Pro-B Natriuret Pep Total Protein Albumin Urine Color Urine Appearance Urine pH Ur Specific [place] Urine Protein Urine Glucose (UA) Urine Ketones Urine Blood Urine Nitrite Urine Bilirubin Urine Urobilinogen Ur Leukocyte Esterase Urine WBC (Auto) Urine RBC (Auto) U Hyaline Cast (Auto) Urine Bacteria (Auto) Squamous Epi Cells Auto Urine Mucus (Auto) Urine Ascorbic Acid EKG Comments: pac Impressions: Chest X-Ray 07/17/17 16:33 IMPRESSION: NO ACUTE RADIOGRAPHIC FINDING IN THE CHEST. Assessment & Plan - Diagnosis (1) Chest pain with moderate risk for cardiac etiology Is this a current diagnosis for this admission?: Yes Plan: roland consult - Inpatient Certification Based on my medical assessment, after consideration of the patient's comorbidities, presenting symptoms, or acuity I expect that the services needed warrant INPATIENT care.: Yes I certify that my determination is in accordance with my understanding of Medicare's requirements for reasonable and necessary INPATIENT services [42 CFR 412.3e].: Yes Medical Necessity: Failure to Improve With Outpatient Therapy, Significant Comorbidiites Make Outpatient Treatment Too Risky, Need Close Monitoring Due to Risk of Patient Decompensation, Need For Continuous Telemetry Monitoring, Risk of Complication if Not Cared For in Hospital, Risk of Diagnosis Which Will Require Inpatient Eval/Care/Monitoring
[2017-07-18] MEDS ORDERED: INSULIN LISPRO 100 UNIT/ML 3 ML VIAL SUBCUT SCH (08:00)
--- NOTE | 2017-07-18 09:14 | EKG REPORT ---
SEVERITY:- BORDERLINE ECG - SINUS RHYTHM ATRIAL PREMATURE COMPLEX BORDERLINE T ABNORMALITIES, INFERIOR LEADS : Confirmed by: Emelina Kwan MD 18-Jul-2017 09:13:40
--- NOTE | 2017-07-18 09:14 | EKG REPORT ---
SEVERITY:- BORDERLINE ECG - SINUS RHYTHM BORDERLINE T WAVE ABNORMALITIES : Confirmed by: Emelina Kwan MD 18-Jul-2017 09:13:36
[2017-07-18 09:50] LABS: CREATINE KINASE MB 0.87 ng/mL (<4.55); TROPONIN I 0.018 ng/mL
[2017-07-18] MEDS ORDERED: ROPINIROLE HCL 0.25 MG TABLET PO SCH (10:00)
[2017-07-18] MEDS ORDERED: RANOLAZINE 500 MG TAB.SR.12H PO SCH (10:00)
[2017-07-18] MEDS ORDERED: ASPIRIN 81 MG TABLET, ENT COATED PO SCH (10:00)
[2017-07-18] MEDS ORDERED: DILTIAZEM HCL 120 MG CAP.SR.24H PO SCH ×2 (10:00)
[2017-07-18] MEDS ORDERED: DILTIAZEM HCL 240 MG CAPSULE.CR PO SCH (10:00)
[2017-07-18] MEDS ORDERED: LACTULOSE SYRUP 20 GM/30 ML UDCUP PO SCH (10:00)
[2017-07-18] MEDS ORDERED: CARBIDOPA/LEVODOPA 10-100 MG TABLET PO SCH (10:00)
[2017-07-18] MEDS ORDERED: FAMOTIDINE 20 MG TABLET PO SCH ×2 (10:00→22:00)
[2017-07-18] MEDS ORDERED: AMINOPHYLLINE INJ/PF 250 MG/10 ML SDV IV ONE (11:16)
[2017-07-18] MEDS ORDERED: REGADENOSON INJ 0.4 MG/5 ML DISP.SYRIN IV ONE (11:16)
[2017-07-18] MEDS: TRAMADOL HCL 50 MG TABLET PO SCH (11:30)
[2017-07-18] MEDS: ASPIRIN 81 MG TABLET, CHEWABLE PO SCH (11:33)
[2017-07-18] MEDS: FUROSEMIDE 40 MG TABLET PO SCH ×2 (11:34→22:04)
[2017-07-18] MEDS: ATORVASTATIN CALCIUM 10 MG TABLET PO SCH (11:34)
[2017-07-18] MEDS: ENOXAPARIN SODIUM INJ 30 MG/0.3 ML DISP.SYRIN SUBCUT SCH ×2 (11:37→21:37)
--- NOTE | 2017-07-18 13:46 | DRAGON STRESS TEST REPORT ---
INTRAVENOUS LEXISCAN CARDIOLITE STRESS TEST USING SINGLE PHOTON EMMISION COMPUTERIZED TOMOGRAPHIC. DATE OF PROCEDURE: July 18, 2017 INDICATION : Chest pain CARDIAC RISK FACTORS: Diabetes, dyslipidemia RESTING EKG: Sinus rhythm, no baseline ST-T wave changes noted STRESS EKG: No significant changes noted with LexiScan bolus REASON FOR TERMINATION: Protocol. PROCEDURE REPORT: Baseline heart rate 64 beats per minute with blood pressure of 137/64. Patient had no significant complaints. Heart rate at 2 minutes post bolus 76 with a blood pressure of 122/51. 3 minutes post bolus heart rate 74 with blood pressure of 124/50. No significant EKG changes were noted. Patient had no significant complaints during the procedure or postprocedure. Patient injected with Aminophyllin 75 mg at 3 minutes or later after Lexiscan bolus. CONCLUSIONS: Normal EKG and hemodynamic response to IV LexiScan. NUCLEAR DATA: At rest the patient was given 11.71 millicuries of technetium 99 sestamibi injected intravenously. As per protocol rest gated SPECT images were obtained. Subsequently the patient was given intravenous LexiScan at a dose of 0.4 mg in 5 mL intravenously, followed by flush with normal saline. Subsequently the stress dose of 34.8. Millicuries of technetium 99 sestamibi was injected intravenously. As per protocol stress gated images were obtained. NUCLEAR INTERPRETATION: Both raw and processed data were used for interpretation. Visual, qualitative, computer-generated quantitative data was used. There was good myocardial uptake of technetium compound. Motion artifact and soft tissue attenuations were noted. Increased visceral uptake was noted. No definitive areas of transient perfusion defect noted, except for mild decreased uptake in the basal and mid inferior wall consistent with mild ischemia. However there was significant visceral visceral uptake noted which did cause difficulty in assessing the perfusion of the inferior wall. Clinical correlation is therefore requested. No definitive areas of fixed perfusion defect or scars noted. EKG gated imaging showed LV EF at 58 %, rest and stress gated EF similar visually. T. I D. ratio was 0.99. Lung heart ratio noted to be within normal limits 0.27. No significant extracardiac and abnormal radiotracer activities were noted. RV free wall uptake was noted to be WNL. IMPRESSION: Also refer to comments under nuclear interpretation. Also test results needs to be interpreted in the context of pretest probability. 1. No definitive areas of transient perfusion defect noted, except for mild decreased uptake in the basal and mid inferior wall consistent with probable mild ischemia. However there was significant visceral visceral uptake noted which did cause difficulty in assessing the perfusion of the inferior wall. Clinical correlation is therefore requested. 2. There is no definitive scintigraphic evidence of myocardial infarction/scar. 3. EKG gated imaging shows left ventricular ejection fraction of approximately [ ]%. 4. Clinical correlation requested as occasionally single vessel disease or balanced ischemia could be missed. In approximately 10% of the cases Lexiscan may not cause adequate vasodilatory stress. RECOMMENDATIONS: Aggressive risk factor modification, medical therapy. Clinical correlation with echocardiogram derived ejection fraction. Inability to exercise by itself can lead to increased cardiovascular event risks. Consider cardiology consultation and or follow-up if clinically indicated. I AM AVAILABLE FOR CARDIOLOGY CONSULTATION AND FOLLOWUP IF REQUESTED BY PMKaren Alarcon M.D., JOYA [employer] Machine Operator privacy analyst, Board certified in cardiovascular diseases, Nuclear cardiology, Echocardiography Cardiac CT and cardiac MRI Ph. [phone] [facility]
[2017-07-18 14:52] LABS: CREATINE KINASE MB 0.75 ng/mL (<4.55); TROPONIN I 0.015 ng/mL
[2017-07-18] MEDS ORDERED: RANOLAZINE 500 MG TAB.SR.12H PO ONE (15:30)
[2017-07-18 15:35] LABS: CHOLESTEROL 108.33 mg/dL (0-200); Direct HDL 49 mg/dL (>40); TRIGLYCERIDES 82 mg/dL (<150)
[2017-07-18 15:46] LABS: DIRECT LDL 37 mg/dL (<100)
--- NOTE | 2017-07-18 20:27 | PDOC CONSULTATION ---
Consultation Consult Date: 07/18/17 Attending physician:: LANA ALVAREZ Consult reason:: Chest pain History of Present Illness Admission Date/PCP: 07/18/17 02:07 LANA ALVAREZ MD Patient complains of: Chest pain History of Present Illness: JOSE ZALDIVAR is a 86 year old female with 1 week intermittant effort L chest pressure radiating to shoulder. 2014 dominant R coronary 30%. Rest 10%. Ejection >65. Patient describes exertional chest pain. This would last a few minutes. Patient has also noted shortness of breath on exertion. Patient has noted some associated shortness of breath, fatigue and tiredness. The chest discomfort has been going on for last several days but got worse therefore was admitted. There is no significant radiation of the chest pain. Patient does have coronary artery disease but was noted to be nonobstructive. Patient scheduled for a stress test. Patient was admitted with atrial flutter as well but spontaneously converted to sinus rhythm. When seen this morning patient was maintaining sinus rhythm. Past Medical History Cardiac Medical History: Reports: Congestive Heart Failure - 2013 mild mr. 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 [id number] RrotatorCuff Psychiatric Medical History: Reports: Dementia Hematology: Denies: Anemia, Sickle Cell Disease Past Surgical History Past Surgical History: Reports: Appendectomy, Cardiac Catheterization, Hysterectomy, Mastectomy - Right lumpectomy Denies: Amputation, Pacemaker Social History Information Source: Patient Lives with: Family Smoking Status: Never Smoker Frequency of Alcohol Use: None Hx Recreational Drug Use: No Drugs: None Hx Prescription Drug Abuse: No - Advance Directive Resuscitation Status: Full Code Surrogate healthcare decision maker:: Not identified by the patient Family History Family History: Hypertension, Malignancy Parental Family History Reviewed: Yes Children Family History Reviewed: Yes Sibling(s) Family History Reviewed.: Yes Medication/Allergy Home Medications: Ranitidine HCl [Zantac] 300 mg PO DAILY 03/17/15 Aspirin [Aspirin 81 mg Chewable Tablet] 81 mg PO DAILY #100 tab.chew 03/18/15 Atorvastatin Calcium 10 mg PO DAILY #30 tablet 03/18/15 Furosemide [Lasix 40 mg Tablet] 40 mg PO BID 07/17/17 Ropinirole HCl 0.25 mg PO TID 07/17/17 Tramadol HCl 50 mg PO DAILY 07/17/17 Dulaglutide [Trulicity] 1.5 mg SQ ASDIR PRN 07/18/17 Insulin Glargine,Hum.rec.anlog [Lantus Solostar] 34 unit SQ QHS 07/18/17 Metformin HCl [Glucophage] 1,000 mg PO BID 07/18/17 Diltiazem HCl [Diltiazem 24Hr Cd] 120 mg PO DAILY #90 cap.er.24h 07/19/17 Nitroglycerin [Nitrostat 0.4 mg (1/150 Gr) Tabs 25/Bottle] 1 tab SL Q5MP PRN # 30 bottle 07/19/17 Ranolazine [Ranexa 500 mg Tab.sr] 500 mg PO Q12 #60 tab.sr.12h 07/19/17 Allergies/Adverse Reactions: simvastatin [Simvastatin] Adverse Reaction (Verified 03/22/17 11:32) Hepatic dysfunction Physical Exam Vital Signs: Temp Pulse Resp BP Pulse Ox 98.3 F 65 17 146/56 H 99 07/18/17 15:45 07/18/17 15:45 07/18/17 15:45 07/18/17 15:45 07/18/17 15:45 Intake & Output 07/17/17 07/18/17 07/19/17 06:59 06:59 06:59 Intake Total 240 Output Total 300 Balance -60 Weight 79.4 kg Exam: GENERAL: well-nourished and in no acute distress. Alert and oriented x3 HEAD: Atraumatic, normocephalic. EYES: Pupils equal round and reactive to light, extraocular movements intact, sclera anicteric, conjunctiva are normal. ENT: TMs normal, nares patent, oropharynx clear without exudates. Moist mucous membranes. No oral ulcerations or bleeding gums noted NECK: supple without lymphadenopathy. Trachea is central. No cervical or axillary lymphadenopathy noted. Carotids are 2+, JVD WNL LUNGS: Respiration seems nonlabored, no significant accessory muscle action noted. Breath sounds clear to auscultation bilaterally and equal noted. No wheezes rales or rhonchi noted. No significant dullness noted on percussion. CHEST: Palpation of the chest wall shows significant chest wall tenderness, on the left side. No other significant abnormalities noted. 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 ABDOMEN: Soft, no significant tenderness appreciated, normoactive bowel sounds. No guarding, no rebound. No rigidity noted . No masses appreciated. EXTREMITIES: Pedal pulses are 1-2+, no calf tenderness noted. No clubbing or cyanosis.trace to 1+ pedal edema noted NEUROLOGICAL: Focused neurological exam showed no significant neurologic deficit. Normal speech, no focal weakness appreciated. PSYCH: Normal mood, normal affect. Judgment and insight within normal limits. SKIN: No significant ecchymosis, rash, ulcerations or signs of pruritus noted. MUSCULOSKELETAL EXAM: No significant joint swelling noted. Results Laboratory Results: 07/18/17 13:55 Triglycerides 82 Cholesterol 108.33 LDL Cholesterol Direct 37 VLDL Cholesterol 16.0 HDL Cholesterol 49 07/18/17 07/18/17 07/18/17 02:46 02:46 08:53 Creatine Kinase 117 118 CK-MB (CK-2) 0.61 Troponin I 0.020 07/18/17 07/18/17 07/18/17 08:53 13:55 13:55 Creatine Kinase 119 CK-MB (CK-2) 0.87 0.75 Troponin I 0.018 0.015 EKG Comments: Sinus rhythm, no acute ST-T wave changes are noted. Impressions: Chest X-Ray 07/17/17 16:33 IMPRESSION: NO ACUTE RADIOGRAPHIC FINDING IN THE CHEST. Assessment & Plan - Diagnosis (1) Paroxysmal atrial flutter Is this a current diagnosis for this admission?: Yes (2) Chest pain with moderate risk for cardiac etiology Is this a current diagnosis for this admission?: Yes (3) Dyspnea on exertion Is this a current diagnosis for this admission?: Yes (4) CKD (chronic kidney disease) stage 4, GFR 15-29 ml/min Is this a current diagnosis for this admission?: Yes (5) Dementia Qualifiers: Dementia type: unspecified type Dementia behavioral disturbance: without behavioral disturbance Qualified Code(s): F03.90 - Unspecified dementia without behavioral disturbance (6) Diabetes mellitus, type 2 Qualifiers: Diabetes mellitus complication status: with unspecified complications Diabetes mellitus buttermaker insulin use: unspecified penitentiary insulin use status Qualified Code(s): E11.8 - Type 2 diabetes mellitus with unspecified complications Is this a current diagnosis for this admission?: Yes - Notes Notes: Paroxysmal atrial flutter: Patient spontaneously converted to sinus rhythm. Patient being placed on Ranexa 500 mg p.o. twice daily which might help both with chest pain and also has some data to suggest that it prevents occurrence of atrial flutter fibrillation. Other option would be amiodarone therapy and/ or ablation. We will leave decision regarding chronic anticoagulation with Dr. Alvarez. Patient could be a candidate based on patient's chads score, patient would be a candidate for chronic anticoagulation with Eliquis. Chest pain: To be evaluated with a nuclear stress test. 2D echo results from before reviewed. Clinically could well be cardiac because of exertional component but patient does have significant chest wall tenderness. Therefore cannot rule out chest wall pain. Dyspnea on exertion: Possibly ischemia equivalent but could be related to diastolic dysfunction and deconditioning. Chronic kidney disease: Should avoid contrast agent and nonsteroidal anti- inflammatory medication. Dementia: Management plans left to Dr. Alvarez. Diabetes: Currently stable. Management plans left to Dr. Alvarez. - Time Time Spent with patient: Addendum: Nuclear stress test results reviewed. Patient noted to have area of borderline ischemia. Recommend medical management, given relatively low risk score from nuclear stress test, normal LVEF and patient significant comorbid diagnosis. Time Spent: 30 to 50 Minutes - CODE STATUS was discussed, patient remains full code. Multiple medical problems were addressed. More than 50% of the time spent coordinating care, discussing management plans with involved caregivers. Management plans discussed with involved personnels. Medical decision making was of moderate to high complexity, patient's has multiple comorbidities. Medications reviewed and adjusted accordingly: Yes
[2017-07-18] MEDS: RANOLAZINE 500 MG TAB.SR.12H PO SCH (21:39)
[2017-07-18] MEDS: ROPINIROLE HCL 0.25 MG TABLET PO SCH (21:43)
[2017-07-18] MEDS ORDERED: INSULIN GLARGINE,HUM.REC.ANLOG 300 UNIT/3 ML INSULN.PEN SUBCUT SCH ×2 (22:00)
[2017-07-19] MEDS ORDERED: DILTIAZEM HCL 120 MG CAP.SR.24H PO SCH (04:37)
[2017-07-19] MEDS: ROPINIROLE HCL 0.25 MG TABLET PO SCH ×2 (05:55→08:40)
--- NOTE | 2017-07-19 07:54 | PDOC DISCHARGE SUMMARY ---
General - Admit/Disc Date/PCP Admission Date/Primary Care Provider: 07/18/17 02:07 LANA ALVAREZ MD Discharge Date: 07/19/17 - Discharge Diagnosis (1) Chest pain with moderate risk for cardiac etiology Is this a current diagnosis for this admission?: Yes - Additional Information Resuscitation Status: Full Code Discharge Diet: Diabetic Discharge Activity: Activity As Tolerated Home Medications: Ranitidine HCl [Zantac] 300 mg PO DAILY 03/17/15 Aspirin [Aspirin 81 mg Chewable Tablet] 81 mg PO DAILY #100 tab.chew 03/18/15 Atorvastatin Calcium 10 mg PO DAILY #30 tablet 03/18/15 Furosemide [Lasix 40 mg Tablet] 40 mg PO BID 07/17/17 Ropinirole HCl 0.25 mg PO TID 07/17/17 Tramadol HCl 50 mg PO DAILY 07/17/17 Dulaglutide [Trulicity] 1.5 mg SQ ASDIR PRN 07/18/17 Insulin Glargine,Hum.rec.anlog [Lantus Solostar] 34 unit SQ QHS 07/18/17 Metformin HCl [Glucophage] 1,000 mg PO BID 07/18/17 Diltiazem HCl [Diltiazem 24Hr Cd] 120 mg PO DAILY #90 cap.er.24h 07/19/17 Nitroglycerin [Nitrostat 0.4 mg (1/150 Gr) Tabs 25/Bottle] 1 tab SL Q5MP PRN # 30 bottle 07/19/17 Ranolazine [Ranexa 500 mg Tab.sr] 500 mg PO Q12 #60 tab.sr.12h 07/19/17 History of Present Illness Patient complains of: chest pain History of Present Illness: JOSE ZALDIVAR is a 86 year old female with 1 week intermittant effort L chest pressure radiating to shoulder. 2015 dominant R coronary 30%. Rest 10%. Ejection >65. Hospital Course Hospital Course: 5 troponins negative. 2 ekgs flat inferior T. Kiya possible mild inferobasal ischemia. No scar. Normal ejection & TID. Dr Alarcon suggested resuming Ranexa. Diltiazem was decreased to 120 for bradycardia. Pain gone Physical Exam Vital Signs: Temp Pulse Resp BP Pulse Ox 98.7 F 56 L 17 121/58 L 100 07/18/17 23:10 07/19/17 02:00 07/18/17 23:10 07/18/17 23:10 07/18/17 23:10 Intake & Output 07/17/17 07/18/17 07/19/17 07:59 07:59 07:59 Intake Total 440 Output Total 600 Balance -160 Weight 175 lb 0.752 oz General appearance: PRESENT: no acute distress Respiratory exam: PRESENT: clear to auscultation [id number] Cardiovascular exam: ABSENT: diastolic murmur, irregular rhythm, systolic murmur GI/Abdominal exam: ABSENT: mass, organolmegaly, tenderness Extremities exam: ABSENT: pedal edema Neurological exam: PRESENT: alert Psychiatric exam: PRESENT: appropriate affect Results Laboratory Results: Labs- Last Values WBC 7.4 10^3/uL (4.0-10.5) 07/17/17 17:00 RBC 3.72 10^6/uL (3.72-5.28) 07/17/17 17:00 Hgb 12.2 g/dL (12.0-15.5) 07/17/17 17:00 Hct 34.7 % (36.0-47.0) L 07/17/17 17:00 MCV 93 fl (80-97) 07/17/17 17:00 MCH 32.6 pg (27.0-33.4) 07/17/17 17:00 MCHC 35.0 g/dL (32.0-36.0) 07/17/17 17:00 RDW 12.2 % (11.5-14.0) 07/17/17 17:00 Plt Count 236 10^3/uL (150-450) 07/17/17 17:00 Seg Neutrophils % 61.5 % (42-78) 07/17/17 17:00 Lymphocytes % 25.6 % (13-45) 07/17/17 17:00 Monocytes % 11.0 % (3-13) 07/17/17 17:00 Eosinophils % 1.4 % (0-6) 07/17/17 17:00 Basophils % 0.5 % (0-2) 07/17/17 17:00 Absolute Neutrophils 4.6 10^3/uL (1.7-8.2) 07/17/17 17:00 Absolute Lymphocytes 1.9 10^3/uL (0.5-4.7) 07/17/17 17:00 Absolute Monocytes 0.8 10^3/uL (0.1-1.4) 07/17/17 17:00 Absolute Eosinophils 0.1 10^3/uL (0.0-0.6) 07/17/17 17:00 Absolute Basophils 0.0 10^3/uL (0.0-0.2) 07/17/17 17:00 Sodium 142.9 mmol/L (137-145) 07/17/17 17:00 Potassium 3.8 mmol/L (3.6-5.0) 07/17/17 17:00 Chloride 102 mmol/L (98-107) 07/17/17 17:00 Carbon Dioxide 26 mmol/L (22-30) 07/17/17 17:00 Anion Gap 15 (5-19) 07/17/17 17:00 BUN 31 mg/dL (7-20) H 07/17/17 17:00 Creatinine 1.59 mg/dL (0.52-1.25) H 07/17/17 17:00 Est GFR ( Amer) 37 (>60) L 07/17/17 17:00 Est GFR (Non-Af Amer) 31 (>60) L 07/17/17 17:00 Glucose 97 mg/dL (75-110) 07/17/17 17:00 POC Glucose 138 mg/dL (70-110) H 07/18/17 21:32 Calcium 9.8 mg/dL (8.4-10.2) 07/17/17 17:00 Total Bilirubin 0.7 mg/dL (0.2-1.3) 07/17/17 17:00 Direct Bilirubin 0.4 mg/dL (0.0-0.4) 07/17/17 17:00 Indirect Bilirubin Not Reportable 07/17/17 17:00 Neonat Total Bilirubin Not Reportable 07/17/17 17:00 AST 22 U/L (14-36) 07/17/17 17:00 ALT 22 U/L (9-52) 07/17/17 17:00 Alkaline Phosphatase 51 U/L (38-126) 07/17/17 17:00 Creatine Kinase 119 U/L (30-135) 07/18/17 13:55 CK-MB (CK-2) 0.75 ng/mL (<4.55) 07/18/17 13:55 Troponin I 0.015 ng/mL 07/18/17 13:55 NT-Pro-B Natriuret Pep 208 pg/mL (<450) 07/17/17 17:00 Total Protein 8.0 g/dL (6.3-8.2) 07/17/17 17:00 Albumin 4.4 g/dL (3.5-5.0) 07/17/17 17:00 Triglycerides 82 mg/dL (<150) 07/18/17 13:55 Cholesterol 108.33 mg/dL (0-200) 07/18/17 13:55 LDL Cholesterol Direct 37 mg/dL (<100) 07/18/17 13:55 VLDL Cholesterol 16.0 mg/dL (10-31) 07/18/17 13:55 HDL Cholesterol 49 mg/dL (>40) 07/18/17 13:55 Urine Color STRAW 07/17/17 16:31 Urine Appearance CLEAR 07/17/17 16:31 Urine pH 5.0 (5.0-9.0) 07/17/17 16:31 Ur Specific [place] 1.004 07/17/17 16:31 Urine Protein NEGATIVE mg/dL (NEGATIVE) 07/17/17 16:31 Urine Glucose (UA) NEGATIVE mg/dL (NEGATIVE) 07/17/17 16:31 Urine Ketones NEGATIVE mg/dL (NEGATIVE) 07/17/17 16:31 Urine Blood NEGATIVE (NEGATIVE) 07/17/17 16:31 Urine Nitrite NEGATIVE (NEGATIVE) 07/17/17 16:31 Urine Bilirubin NEGATIVE (NEGATIVE) 07/17/17 16:31 Urine Urobilinogen NEGATIVE mg/dL (<2.0) 07/17/17 16:31 Ur Leukocyte Esterase NEGATIVE (NEGATIVE) 07/17/17 16:31 Urine WBC (Auto) 1 /HPF 07/17/17 16:31 Urine RBC (Auto) 0 /HPF 07/17/17 16:31 U Hyaline Cast (Auto) 2 /LPF 07/17/17 16:31 Urine Bacteria (Auto) TRACE /HPF 07/17/17 16:31 Squamous Epi Cells Auto <1 /HPF 07/17/17 16:31 Urine Mucus (Auto) RARE /LPF 07/17/17 16:31 Urine Ascorbic Acid NEGATIVE (NEGATIVE) 07/17/17 16:31 Impressions: Chest X-Ray 07/17/17 16:33 IMPRESSION: NO ACUTE RADIOGRAPHIC FINDING IN THE CHEST. Plan Discharge Plan: home. 1w ov
[2017-07-19 08:29] VITALS: BP 152/60
[2017-07-19] MEDS: ATORVASTATIN CALCIUM 10 MG TABLET PO SCH ×2 (08:38→09:00)
[2017-07-19] MEDS: FUROSEMIDE 40 MG TABLET PO SCH (08:38)
[2017-07-19] MEDS: ASPIRIN 81 MG TABLET, CHEWABLE PO SCH (08:38)
[2017-07-19] MEDS: RANOLAZINE 500 MG TAB.SR.12H PO SCH (09:04)
[2017-07-19] MEDS: TRAMADOL HCL 50 MG TABLET PO SCH (09:05)
== END 2017-07-19 09:30 | disposition home health service (06) ==
LOC: ER 15:39 → EH 22:53 → UNDOADMOB 22:53 → 4N 07-18 00:42 → EH 07-18 00:42 → 4N 07-18 02:07 → EH 07-18 02:07
PROVIDERS: ADMIT Family Medicine; ATTEND Family Medicine
PROC: 3E0234Z Introduction of Serum, Toxoid and Vaccine into Muscle, Percutaneous Approach (ICD-10-PCS; principal; 2017-07-19)
DX: R07.89 Other chest pain (principal); R00.1 Bradycardia, unspecified; R53.83 Other fatigue; R06.02 Shortness of breath; I25.10 Atherosclerotic heart disease of native coronary artery without angina pectoris; I25.2 Old myocardial infarction; F03.90 Unspecified dementia, unspecified severity, without behavioral disturbance, psychotic disturbance, mood disturbance, and anxiety; R06.09 Other forms of dyspnea; I50.9 Heart failure, unspecified; N18.4 Chronic kidney disease, stage 4 (severe); I13.0 Hypertensive heart and chronic kidney disease with heart failure and stage 1 through stage 4 chronic kidney disease, or unspecified chronic kidney disease; E11.22 Type 2 diabetes mellitus with diabetic chronic kidney disease; E11.8 Type 2 diabetes mellitus with unspecified complications; I48.92 Unspecified atrial flutter; E78.5 Hyperlipidemia, unspecified; Z79.82 Long term (current) use of aspirin; Z79.899 Other long term (current) drug therapy; Z79.4 Long term (current) use of insulin; Z85.3 Personal history of malignant neoplasm of breast; Z92.3 Personal history of irradiation; Z82.49 Family history of ischemic heart disease and other diseases of the circulatory system; Z80.9 Family history of malignant neoplasm, unspecified; Z90.11 Acquired absence of right breast and nipple; Z23 Encounter for immunization
CPT/HCPCS: 93005 ×2; 99285; 36415 ×2; 87086; 82553 ×2; 82962 ×2; 82550 ×2; 85025; 80053; 81001; 84484 ×2; 80061; 83880; 93017; 71010; 78452; 90686; 93010 ×2; A9500; J2785; A9270 ×17; J3490 ×2; J1650; J0280; Q9969; 90471; G0008; J1815

== ENCOUNTER 2017-07-26 12:32 | Inpatient (IN) | payer MEDICARE, OTHER ==
--- NOTE | 2017-07-26 14:07 | ER Document Report ---
ED Medical Screen (RME) - General Chief Complaint: Abdominal Pain Stated Complaint: CHEST PAIN Time Seen by Provider: 07/26/17 14:04 Mode of Arrival: Wheelchair Information source: Patient Notes: 87-year-old female presented to ED for complaint of upper abdominal and chest pain. States she was in the hospital last week for chest pain got out on Saturday. States she has not been able to eat due to the pain when she tries to eat. States she is getting weaker and weaker from that eating. She lives with her daughter. Has a history of a [place] long time ago but has high blood pressure and cholesterol. Lungs clear at this time tenderness to the upper abdomen bowel sounds present. I have greeted and performed a rapid initial assessment of this patient. A comprehensive ED assessment and evaluation of the patient, analysis of test results and completion of medical decision making process will be conducted by an additional ED providers. TRAVEL OUTSIDE OF THE [place] IN LAST 30 DAYS: No - Related Data Allergies/Adverse Reactions: simvastatin [Simvastatin] Adverse Reaction (Verified 07/26/17 13:14) Hepatic dysfunction Past Medical History - Social History Chew tobacco use (# tins/day): No Frequency of alcohol use: None Drug Abuse: None - Past Medical History Cardiac Medical History: Reports: Hx Congestive Heart Failure - 2013 mild mr. Stiffness., Hx Coronary Artery Disease - 2014 nonobstructing, Hx Heart Attack, Hx Hypercholesterolemia, Hx Hypertension Pulmonary Medical History: Reports: Hx Bronchitis, Hx Pneumonia Denies: Hx Asthma, Hx COPD, Hx Tuberculosis Neurological Medical History: Denies: Hx Cerebrovascular Accident, Hx Seizures Endocrine Medical History: Reports: Hx Diabetes Mellitus Type 2 Renal/ Medical History: Reports: Hx Renal Insufficiency. Denies: Hx Peritoneal Dialysis Malignancy Medical History: Reports: Hx Breast Cancer - 2010 Rductal invasive T1c surgery radiation ansatrozole GI Medical History: Reports: Hx Gastroesophageal Reflux Disease, Hx Ulcer, Hx Colonoscopy. 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 Denies: Hx Open Heart Surgery, Hx Pacemaker - Immunizations Immunizations up to date: Yes Hx Diphtheria, Pertussis, Tetanus Vaccination: Yes History of Influenza Vaccine for 07/2017 - 12/2017 Season: No Physical Exam - Vital signs Vitals: Temp Pulse Resp BP Pulse Ox 97.9 F 68 20 142/68 H 100 07/26/17 13:14 07/26/17 13:14 07/26/17 13:14 07/26/17 13:14 07/26/17 13:14 Course - Vital Signs Vital signs: Temp Pulse Resp BP Pulse Ox 97.9 F 68 20 142/68 H 100 07/26/17 13:14 07/26/17 13:14 07/26/17 13:14 07/26/17 13:14 07/26/17 13:14
--- NOTE | 2017-07-26 15:09 | RADIOLOGY REPORT (SQ) ---
EXAM DESCRIPTION: CHEST PA/LAT COMPLETED DATE/TIME: 07/26/2017 2:54 pm REASON FOR STUDY: Upper abdominal and chest pain COMPARISON: 03/17/2015 EXAM PARAMETERS: NUMBER OF VIEWS: two views TECHNIQUE: Digital Frontal and Lateral radiographic views of the chest acquired. RADIATION DOSE: NA LIMITATIONS: none FINDINGS: LUNGS AND PLEURA: No opacities, masses or pneumothorax. No pleural effusion. MEDIASTINUM AND HILAR STRUCTURES: No masses or contour abnormalities. HEART AND VASCULAR STRUCTURES: Heart normal size. No evidence for failure. BONES: No acute findings. HARDWARE: None in the chest. OTHER: No other significant finding. IMPRESSION: NO SIGNIFICANT RADIOGRAPHIC FINDING IN THE CHEST. TECHNICAL DOCUMENTATION: JOB ID: [id number] [employer]- All Rights Reserved
[2017-07-26 15:10] LABS: ALANINE AMINOTRANSFERASE 24 U/L (9-52); ALBUMIN 4.7 g/dL (3.5-5.0); ALKALINE PHOSPHATASE 64 U/L (38-126); ANION GAP 19 (5-19); ASPARTATE AMINO TRANSFERASE 23 U/L (14-36); BILIRUBIN,DIRECT 0.5 mg/dL (0.0-0.4); BILIRUBIN,TOTAL 0.9 mg/dL (0.2-1.3); BLOOD UREA NITROGEN 33 mg/dL (7-20); CALCIUM 9.9 mg/dL (8.4-10.2); CARBON DIOXIDE 25 mmol/L (22-30); CHLORIDE 99 mmol/L (98-107); CREATINE KINASE 115 U/L (30-135); CREATININE RESULT 2.49 mg/dL (0.52-1.25); GLUCOSE 84 mg/dL (75-110); POTASSIUM 4.1 mmol/L (3.6-5.0); SODIUM 142.8 mmol/L (137-145); TOTAL PROTEIN 8.6 g/dL (6.3-8.2)
[2017-07-26 15:12] LABS: ABSOLUTE EOSINOPHILS # (AUTO) 0.1 10^3/uL (0.0-0.6); ABSOLUTE LYMPHOCYTES (AUTO) 1.7 10^3/uL (0.5-4.7); ABSOLUTE MONOCYTES (AUTO) 0.7 10^3/uL (0.1-1.4); ABSOLUTE NEUT (AUTO) 4.6 10^3/uL (1.7-8.2); BASOPHILS % (AUTO) 0.3 % (0-2); EOSINOPHILS % (AUTO) 0.8 % (0-6); HEMATOCRIT 37.5 % (36.0-47.0); HEMOGLOBIN 13.1 g/dL (12.0-15.5); HGB HCT DIFFERENCE 1.8; MEAN CORPUSCULAR HEMOGLOBIN 32.7 pg (27.0-33.4); MEAN CORPUSCULAR VOLUME 94 fl (80-97); MONOCYTES % (AUTO) 9.5 % (3-13); RED BLOOD COUNT 4.01 10^6/uL (3.72-5.28); RED CELL DISTRIBUTION WIDTH 12.5 % (11.5-14.0); SEGMENTED NEUTROPHILS % (AUTO) 65.4 % (42-78); WHITE BLOOD COUNT 7.1 10^3/uL (4.0-10.5)
[2017-07-26 15:21] LABS: CREATINE KINASE MB 0.97 ng/mL (<4.55); TROPONIN I 0.021 ng/mL
--- NOTE | 2017-07-26 17:08 | RADIOLOGY REPORT (SQ) ---
EXAM DESCRIPTION: U/S ABDOMEN LTD W/DOPPLER COMPLETED DATE/TIME: 07/26/2017 4:44 pm REASON FOR STUDY: Upper abdominal and chest pain COMPARISON: Abdominal ultrasound 07/25/2012, 03/10/2011 CT abdomen pelvis 07/23/2012 TECHNIQUE: Dynamic and static grayscale images acquired of the abdomen and recorded on PACS. Additio nal selected color Doppler and spectral images recorded. LIMITATIONS: Midline bowel gas FINDINGS: PANCREAS: Midline pancreas unremarkable LIVER: Sub- diaphragmatic surface not well seen. Remainder the liver is grossly unremarkable LIVER VASCULATURE: Normal directional flow of the main portal vein and hepatic veins. GALLBLADDER: Distended with gallbladder sludge in the fundus. No shadowing stones. No gallbladder w all thickening or pericholecystic fluid. ULTRASOUND-DETECTED TOLENTINO'S SIGN: Negative. INTRAHEPATIC DUCTS AND COMMON DUCT: CBD and intrahepatic ducts normal caliber. No filling defects. INFERIOR VENA CAVA: Normal flow. AORTA: No aneurysm. RIGHT KIDNEY: Normal size. Normal echogenicity. No solid or suspicious masses. No hydronephrosis. No calcifications. PERITONEAL AND RIGHT PLEURAL SPACE: No ascites or effusions. OTHER: No other significant findings. IMPRESSION: Gallbladder sludge. No gallbladder wall thickening or pericholecystic fluid. No shadow ing stones. TECHNICAL DOCUMENTATION: JOB ID: [id number] [employer]- All Rights Reserved
[2017-07-26 18:05] LABS: APPEARANCE,URINE CLEAR; BILIRUBIN,URINE NEGATIVE (NEGATIVE); GLUCOSE, URINE NEGATIVE (NEGATIVE); KETONES,URINE NEGATIVE (NEGATIVE); LEUKOCYTE ESTERASE,URINE TRACE (NEGATIVE); NITRITE,URINE NEGATIVE (NEGATIVE); PROTEIN,URINE NEGATIVE (NEGATIVE); UROBILINOGEN,URINE NEGATIVE mg/dL (<2.0)
--- NOTE | 2017-07-26 18:59 | RADIOLOGY REPORT (SQ) ---
EXAM DESCRIPTION: CT ABD/PELVIS NO ORAL OR IV COMPLETED DATE/TIME: 07/26/2017 6:45 pm REASON FOR STUDY: ab pain, 87 yo COMPARISON: 03/11/2011 TECHNIQUE: CT scan of the abdomen and pelvis performed without intravenous or oral contrast. Images reviewed with lung, soft tissue, and bone windows. Reconstructed coronal and sagittal MPR images revi ewed. All images stored on PACS. All CT scanners at this facility use dose modulation, iterative reconstruction, and/or weight based d osing when appropriate to reduce radiation dose to as low as reasonably achievable (ALARA). [facility]: Dose Right [facility]: CareDose [facility]: Dose Right [facility]: Teradose 4D [facility]: [employer] RADIATION DOSE: Up-to-date CT equipment and radiation dose reduction techniques were employed. CTDIv ol: 8.6 mGy. DLP: 441 mGy-cm.mGy. LIMITATIONS: None. FINDINGS: LOWER CHEST: No significant findings. No nodules or infiltrates. NON-CONTRASTED LIVER, SPLEEN, ADRENALS: Evaluation limited by lack of IV contrast. No identified sign ificant masses. PANCREAS: No masses. No peripancreatic inflammatory changes. GALLBLADDER: The gallbladder is somewhat distended. No stones are seen. RIGHT KIDNEY AND URETER: No suspicious masses. Assessment limited by lack of IV contrast. No signif icant calcifications. No hydronephrosis or hydroureter. LEFT KIDNEY AND URETER: No suspicious masses. Assessment limited by lack of IV contrast. No signifi cant calcifications. No hydronephrosis or hydroureter. AORTA AND RETROPERITONEUM: No aneurysm. No retroperitoneal masses or adenopathy. BOWEL AND PERITONEAL CAVITY: No obvious masses or inflammatory changes. No free fluid. APPENDIX: Surgically absent. PELVIS, BLADDER, AND ABDOMINAL WALL:No abnormal masses. No free fluid. Bladder normal. BONES: Lumbar degenerative disc disease. Thoracolumbar spondylosis. OTHER: No other significant finding. IMPRESSION: The gallbladder is somewhat distended. No stones are seen. There is no ductal dilatati on. There are no findings that explain the patient's pain. COMMENT: Quality ID # [id number]: Final reports with documentation of one or more dose reduction techniques (e.g., Automated exposure control, adjustment of the mA and/or kV according to patient size, use of iterative reconstruction technique) TECHNICAL DOCUMENTATION: JOB ID: [id number]- All Rights Reserved
[2017-07-26] MEDS ORDERED: NORMAL SALINE 1000 ML 1,000 ML IV ONE (19:07)
[2017-07-26] MEDS ORDERED: FAMOTIDINE 20 MG TABLET PO ONE (19:07)
[2017-07-26] MEDS ORDERED: LIDOCAINE 2% VISCOUS SOLN 20 ML UDCUP PO ONE (19:07)
[2017-07-26] MEDS ORDERED: METOCLOPRAMIDE HCL ORAL SOLN 10 MG/10 ML UDCUP PO ONE (19:07)
[2017-07-26] MEDS ORDERED: MAG HYDROX/AL HYDROX/SIMETH SUSP 30 ML UDCUP PO ONE (19:07)
--- NOTE | 2017-07-26 19:11 | ER Document Report ---
ED General - General Chief Complaint: Abdominal Pain Stated Complaint: CHEST PAIN Time Seen by Provider: 07/26/17 14:04 Mode of Arrival: Wheelchair Notes: Patient is an 87-year-old female who presents with 5 days of anorexia, nausea, and epigastric and right upper quadrant abdominal pain anytime she attempts to eat. Patient was in her doctor's office today when she had an episode of epigastric and right upper quadrant abdominal pain and was subsequently referred to the emergency department. Does describe this as an intermittent, severe, stabbing pain to the upper abdomen that is triggered by eating. She states that it does eventually resolve spontaneously. She has no history of similar symptoms in the past. Denies any chest pain, shortness of breath, syncope, or lower abdominal pain. She has no history of similar symptoms in the past. No fever or constitutional symptoms. TRAVEL OUTSIDE OF THE [place] IN LAST 30 DAYS: No - Related Data Allergies/Adverse Reactions: simvastatin [Simvastatin] Adverse Reaction (Verified 07/26/17 13:14) Hepatic dysfunction Home Medications: Current Home Medications Nitroglycerin [Nitrostat 0.4 mg (1/150 Gr) Tabs 25/Bottle] 1 tab SL Q5MP PRN [History] Past Medical History - General Information source: Patient - Social History Smoking Status: Never Smoker Chew tobacco use (# tins/day): No Frequency of alcohol use: None Drug Abuse: None Lives with: Family Family History: Hypertension, Malignancy Patient has suicidal ideation: No Patient has homicidal ideation: No - Past Medical History Cardiac Medical History: Reports: Hx Congestive Heart Failure - 2013 mild mr. Stiffness., Hx Coronary Artery Disease - 2014 nonobstructing, Hx Heart Attack, Hx Hypercholesterolemia, Hx Hypertension Pulmonary Medical History: Reports: Hx Bronchitis, Hx Pneumonia Denies: Hx Asthma, Hx COPD, Hx Tuberculosis Neurological Medical History: Denies: Hx Cerebrovascular Accident, Hx Seizures Endocrine Medical History: Reports: Hx Diabetes Mellitus Type 2 Renal/ Medical History: Reports: Hx Renal Insufficiency. Denies: Hx Peritoneal Dialysis Malignancy Medical History: Reports: Hx Breast Cancer - 2010 Rductal invasive T1c surgery radiation ansatrozole GI Medical History: Reports: Hx Gastroesophageal Reflux Disease, Hx Ulcer, Hx Colonoscopy. 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 Denies: Hx Open Heart Surgery, Hx Pacemaker - Immunizations Immunizations up to date: Yes Hx Diphtheria, Pertussis, Tetanus Vaccination: Yes Hx Pneumococcal Vaccination: 07/24/12 Review of Systems - Review of Systems Notes: Constitutional: Negative for fever. HENT: Negative for sore throat. Eyes: Negative for visual changes. Cardiovascular: Negative for chest pain. Respiratory: Negative for shortness of breath. Gastrointestinal: Positive for abdominal pain, anorexia and nausea Genitourinary: Negative for dysuria. Musculoskeletal: Negative for back pain. Skin: Negative for rash. Neurological: Negative for headaches, weakness or numbness. 10 point ROS negative except as marked above and in HPI. Physical Exam - Vital signs Vitals: BP Pulse Ox 153/70 H 100 07/26/17 12:54 07/26/17 12:54 Interpretation: Hypertensive Notes: PHYSICAL EXAMINATION: GENERAL: Appears moderately uncomfortable but in no acute distress HEAD: Atraumatic, normocephalic. EYES: Pupils equal round and reactive to light, extraocular movements intact, sclera anicteric, conjunctiva are normal. ENT: nares patent, oropharynx clear without exudates. Moderately dry mucous membranes. NECK: Normal range of motion, supple without lymphadenopathy LUNGS: Breath sounds clear to auscultation bilaterally and equal. No wheezes rales or rhonchi. HEART: Regular rate and rhythm without murmurs ABDOMEN: Soft, focal tenderness in the epigastrium and right upper quadrant palpation, normoactive bowel sounds. No guarding, no rebound. No masses appreciated. EXTREMITIES: Normal range of motion, no pitting or edema. No cyanosis. NEUROLOGICAL: No focal neurological deficits. Moves all extremities spontaneously and on command. PSYCH: Normal mood, normal affect. SKIN: Warm, Dry, normal turgor, no rashes or lesions noted. Course - Re-evaluation Re-evalutation: 07/26/17 19:13 Presentation is most concerning for possible symptomatic cholelithiasis. Patient does have focal tenderness in the epigastrium and right upper quadrant on palpation of the abdomen. Right upper quadrant ultrasound does show sludge and CT scan does show distention of the gallbladder. Laboratories are otherwise unremarkable. However patient's clinical history is most consistent with this as she states for the past 9 days anytime she tries to eat she developed a severe, gnawing, constant pain in her epigastrium right upper quadrant that does not resolve for several hours. She does know she is able to tolerate fluids without difficulty. This does not appear consistent with acute reflux. Likewise I have a low clinical suspicion for a gastritis given that she does not have pain outside of when she attempts to eat. I have discussed with Dr. Osorio the surgeon on-call who will evaluate the patient and plan for admission for IV hydration given her acute kidney injury and possible surgical management. 1999-Dr. Osorio has requested that given patient's medical comorbidities that she be admitted to a general medical service. I have contacted Dr. Khan who is agreed to admit the patient. - Vital Signs Vital signs: Temp Pulse Resp BP Pulse Ox 98.8 F 67 16 152/65 H 98 07/27/17 01:19 07/27/17 01:19 07/27/17 01:19 07/27/17 01:19 07/27/17 00:23 - Laboratory Result Diagrams: 07/26/17 14:20 07/26/17 14:20 Laboratory results interpreted by me: 07/26/17 07/26/17 14:20 17:25 BUN 33 H Creatinine 2.49 H Est GFR ( Amer) 22 L Est GFR (Non-Af Amer) 18 L Direct Bilirubin 0.5 H Total Protein 8.6 H Ur Leukocyte Esterase TRACE H - Diagnostic Test Radiology reviewed: Image reviewed, Reports reviewed Discharge - Discharge Clinical Impression: Symptomatic cholelithiasis, Acute kidney injury Condition: Fair Disposition: ADMITTED INPATIENT Admitting Provider: Erin Unit Admitted: Telemetry
--- NOTE | 2017-07-27 00:33 | HISTORY AND PHYSICAL E ---
History and Physical NAME: JOSE ZALDIVAR : 1930 AGE: 87Y ADMITTED: 07/26/2017 ROOM: ED11 HISTORY OF PRESENT ILLNESS: This is an 87-year-old female who has been complaining of nausea every time she eats for the past 9 days with some complaints of epigastric and right upper quadrant pains. She went to the emergency room today where a CAT scan of the abdomen revealed dilated gallbladder and an ultrasound which showed biliary sludge but no evidence of acute cholecystitis. ALLERGIES: SIMVASTATIN. HOME MEDICATIONS: Nitroglycerin sublingual p.r.n. PAST MEDICAL HISTORY: Cardiac history: Reports CHF in 2013, coronary artery disease in 2014 nonobstructing, history of WI, hypercholesterolemia and hypertension. Pulmonary history: Reports bronchitis and pneumonia. Neurologic medical history: Denies CVA. Endocrine history: Reports diabetes mellitus type 2. Renal/ history: Reports renal insufficiency. Malignancy: History of breast cancer in 2010. Had T1c surgery with radiation therapy as well as mastectomy. GI medical history: Reports GERD, ulcer, had colonoscopy. 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 Psychiatric history: Reports dementia. Traumatic medical history: History of fractures. Infectious medical history: Denies hepatitis. PAST SURGICAL HISTORY: Reports appendectomy, cardiac catheterization, hysterectomy, lumpectomy, history of right mastectomy and right lumpectomy. Denies pacemaker or open heart surgery. IMMUNIZATIONS: Up-to-date, history of DPT vaccination and pneumococcal vaccine, 07/24/12. PHYSICAL EXAMINATION: VITAL SIGNS: BP 153/70, pulse oximetry 100% on room air. GENERAL: The patient is alert, quite oriented, complaining of mild epigastric and right upper quadrant pains. HEENT: Neck is supple, no thyromegaly. LUNGS: Clear. HEART: Regular sinus rhythm. ABDOMEN: Soft with mild tenderness in the epigastric and right upper quadrant. EXTREMITIES: No edema. IMPRESSION: 1. Cholelithiasis. 2. Biliary colic. PLAN: 1. N.p.o. and hydration. 2. Zofran p.r.n. for nausea. 3. Will need a HIDA scan to rule out acute cholecystitis and will order that in a.m. 4. Medical consultation with the hospitalist. 5. Cardiologic clearance with Dr. Alarcon who has seen her in the past. 6. She is quite high risk for surgery and if the HIDA scan is positive for cholecystitis, consideration will be made for percutaneous cholecystostomy versus laparoscopic cholecystectomy. 7. BUN and creatinine are elevated and will need Nephrology consultation, since she is somewhat dehydrated with a BUN of 33 and creatinine of 2.49. Her white count is normal. 8. We could probably hold off on her antibiotics for now unless, of course, the HIDA scan is abnormal, indicating acute cholecystitis. DICTATING PHYSICIAN: MARVA CABRAL M.D. [id number] PHY#: [id number] ID: [id number] JOB#: [id number] ACCT: [id number] cc:MARVA CABRAL M.D., ROBERT M.D. > MTDD
[2017-07-27] MEDS ORDERED: DEXTROSE 40% GEL 15 GM TUBE PO PRN ×2 (00:46)
[2017-07-27] MEDS ORDERED: GLUCAGON,HUMAN RECOMB 1 MG INJ SUBCUT PRN (00:46)
[2017-07-27] MEDS ORDERED: NORMAL SALINE 1000 ML 1,000 ML IV PRN ×2 (00:46→03:19)
[2017-07-27] MEDS ORDERED: DEXTROSE 50%-WATER 25 GM/50 ML DISP.SYRIN IV PRN ×2 (00:46)
[2017-07-27] MEDS ORDERED: ONDANSETRON HCL INJ/PF 4 MG/2 ML SDV IV PRN (00:52)
[2017-07-27] MEDS ORDERED: MORPHINE SULFATE 10 MG/ML INJ IV PRN (03:20)
[2017-07-27] MEDS ORDERED: INFLUENZA ADLT QUAD (36MOS+) 2017-18 VAC 0.5 ML SYR IM PRN (04:15)
[2017-07-27] MEDS ORDERED: INSULIN REG, HUMAN 100 UNIT/ML 3 ML VIAL (PYX) SUBCUT PRN (04:28)
--- NOTE | 2017-07-27 04:50 | PDOC PROGRESS REPORT ---
Subjective Progress Note for:: 07/27/17 Subjective:: epigastric pain radiating to chest about the same Physical Exam Vital Signs: Temp Pulse Resp BP Pulse Ox 98.8 F 67 16 152/65 H 98 07/27/17 01:19 07/27/17 01:19 07/27/17 01:19 07/27/17 01:19 07/27/17 00:23 Intake & Output 07/25/17 07/26/17 07/27/17 07:59 07:59 07:59 Weight 171 lb 11.841 oz General appearance: PRESENT: no acute distress Respiratory exam: PRESENT: clear to auscultation yinka Cardiovascular exam: ABSENT: diastolic murmur, irregular rhythm, systolic murmur GI/Abdominal exam: PRESENT: tenderness - mild epigastric. ABSENT: guarding, mass, organolmegaly, rebound Extremities exam: ABSENT: pedal edema Neurological exam: PRESENT: oriented to situation Psychiatric exam: PRESENT: appropriate affect Results Laboratory Results: Abnormal - 24 hr 07/26/17 07/26/17 14:20 17:25 BUN 33 H Creatinine 2.49 H Est GFR ( Amer) 22 L Est GFR (Non-Af Amer) 18 L Direct Bilirubin 0.5 H Total Protein 8.6 H Ur Leukocyte Esterase TRACE H Impressions: Abdomen Ultrasound 07/26/17 14:05 IMPRESSION: Gallbladder sludge. No gallbladder wall thickening or pericholecystic fluid. No shadowing stones. Chest X-Ray 07/26/17 14:05 IMPRESSION: NO SIGNIFICANT RADIOGRAPHIC FINDING IN THE CHEST. Abdomen/Pelvis CT 07/26/17 18:27 IMPRESSION: The gallbladder is somewhat distended. No stones are seen. There is no ductal dilatation. There are no findings that explain the patient's pain. Assessment & Plan - Diagnosis (1) Biliary colic Is this a current diagnosis for this admission?: Yes Plan: hida. Surgery?drain. 2w ago roland minimally ischemic vs artifact (2) Acute kidney injury Is this a current diagnosis for this admission?: Yes Plan: ivf (3) Type 2 diabetes mellitus with diabetic chronic kidney disease Qualifiers: Diabetes mellitus wire roller insulin use: with wire roller use Chronic kidney disease stage: stage 4 (severe) Qualified Code(s): E11.22 - Type 2 diabetes mellitus with diabetic chronic kidney disease; N18.4 - Chronic kidney disease, stage 4 (severe); N18.4 - Chronic kidney disease, stage 4 (severe); N18.4 - Chronic kidney disease, stage 4 (severe); N18.4 - Chronic kidney disease, stage 4 (severe); Z79.4 - shelter (current) use of insulin; 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; Z79.4 - assembly machine set up mechanic (current) use of insulin; Z79.4 - shelter (current) use of insulin Is this a current diagnosis for this admission?: Yes Plan: sliding scale - Inpatient Certification Based on my medical assessment, after consideration of the patient's comorbidities, presenting symptoms, or acuity I expect that the services needed warrant INPATIENT care.: Yes I certify that my determination is in accordance with my understanding of Medicare's requirements for reasonable and necessary INPATIENT services [42 CFR 412.3e].: Yes Medical Necessity: Failure to Improve With Outpatient Therapy, Significant Comorbidiites Make Outpatient Treatment Too Risky, Need Close Monitoring Due to Risk of Patient Decompensation, Need For IV Fluids, Need For Continuous Telemetry Monitoring, Need for Surgery, Risk of Complication if Not Cared For in Hospital, Risk of Diagnosis Which Will Require Inpatient Eval/Care/Monitoring
[2017-07-27 04:55] LABS: ABSOLUTE EOSINOPHILS # (AUTO) 0.1 10^3/uL (0.0-0.6); ABSOLUTE LYMPHOCYTES (AUTO) 1.5 10^3/uL (0.5-4.7); ABSOLUTE MONOCYTES (AUTO) 0.7 10^3/uL (0.1-1.4); ABSOLUTE NEUT (AUTO) 3.4 10^3/uL (1.7-8.2); BASOPHILS % (AUTO) 0.7 % (0-2); EOSINOPHILS % (AUTO) 1.5 % (0-6); HEMATOCRIT 32.5 % (36.0-47.0); HGB HCT DIFFERENCE 1.4; LYMPHOCYTES % (AUTO) 25.7 % (13-45); MEAN CORPUSCULAR HEMOGLOBIN 32.3 pg (27.0-33.4); MEAN CORPUSCULAR HGB CONC 34.7 g/dL (32.0-36.0); MEAN CORPUSCULAR VOLUME 93 fl (80-97); MONOCYTES % (AUTO) 12.1 % (3-13); RED BLOOD COUNT 3.49 10^6/uL (3.72-5.28); RED CELL DISTRIBUTION WIDTH 12.2 % (11.5-14.0); WHITE BLOOD COUNT 5.7 10^3/uL (4.0-10.5)
[2017-07-27 04:57] LABS: HEMOGLOBIN 11.3 g/dL (12.0-15.5)
[2017-07-27 04:58] LABS: ALANINE AMINOTRANSFERASE 25 U/L (9-52); ALBUMIN 3.3 g/dL (3.5-5.0); ALKALINE PHOSPHATASE 47 U/L (38-126); ANION GAP 14 (5-19); ASPARTATE AMINO TRANSFERASE 17 U/L (14-36); BILIRUBIN,DIRECT 0.3 mg/dL (0.0-0.4); BILIRUBIN,TOTAL 0.7 mg/dL (0.2-1.3); BLOOD UREA NITROGEN 26 mg/dL (7-20); CALCIUM 8.1 mg/dL (8.4-10.2); CARBON DIOXIDE 21 mmol/L (22-30); CHLORIDE 111 mmol/L (98-107); CREATININE RESULT 1.59 mg/dL (0.52-1.25); GLUCOSE 92 mg/dL (75-110); LIPASE 63.3 U/L (23-300); POTASSIUM 3.7 mmol/L (3.6-5.0); SODIUM 145.6 mmol/L (137-145); TOTAL PROTEIN 6.4 g/dL (6.3-8.2)
--- NOTE | 2017-07-27 07:50 | EKG REPORT ---
SEVERITY:- ABNORMAL ECG - SINUS OR ECTOPIC ATRIAL RHYTHM ATRIAL PREMATURE COMPLEX NONSPECIFIC T ABNORMALITIES, LATERAL LEADS QT PROLONGATION : Confirmed by: Brian Sal MD 27-Jul-2017 07:50:18
--- NOTE | 2017-07-27 09:43 | PDOC PROGRESS REPORT ---
Subjective Progress Note for:: 07/27/17 Physical Exam Vital Signs: Temp Pulse Resp BP Pulse Ox 98.0 F 63 14 130/61 H 100 07/27/17 07:16 07/27/17 07:16 07/27/17 07:16 07/27/17 07:16 07/27/17 07:16 Intake & Output 07/26/17 07/27/17 07/28/17 06:59 06:59 06:59 Intake Total 0 Balance 0 Weight 77.9 kg GI/Abdominal exam: PRESENT: other - tenderness right upper quadrant Results Laboratory Results: 07/27/17 03:55 07/27/17 03:55 07/27/17 07/27/17 03:55 03:55 WBC 5.7 RBC 3.49 L Hgb 11.3 L Hct 32.5 L MCV 93 MCH 32.3 MCHC 34.7 RDW 12.2 Plt Count 201 Seg Neutrophils % 60.0 Lymphocytes % 25.7 Monocytes % 12.1 Eosinophils % 1.5 Basophils % 0.7 Absolute Neutrophils 3.4 Absolute Lymphocytes 1.5 Absolute Monocytes 0.7 Absolute Eosinophils 0.1 Absolute Basophils 0.0 Sodium 145.6 H Potassium 3.7 Chloride 111 H Carbon Dioxide 21 L Anion Gap 14 BUN 26 H Creatinine 1.59 H Est GFR ( Amer) 37 L Est GFR (Non-Af Amer) 31 L Glucose 92 Calcium 8.1 L Total Bilirubin 0.7 AST 17 ALT 25 Alkaline Phosphatase 47 Total Protein 6.4 Albumin 3.3 L Lipase 63.3 Impressions: Abdomen Ultrasound 07/26/17 14:05 IMPRESSION: Gallbladder sludge. No gallbladder wall thickening or pericholecystic fluid. No shadowing stones. Chest X-Ray 07/26/17 14:05 IMPRESSION: NO SIGNIFICANT RADIOGRAPHIC FINDING IN THE CHEST. Abdomen/Pelvis CT 07/26/17 18:27 IMPRESSION: The gallbladder is somewhat distended. No stones are seen. There is no ductal dilatation. There are no findings that explain the patient's pain. Assessment & Plan - Plan Summary Plan Summary: cholecystitis for lap ethan tomorrow
--- NOTE | 2017-07-27 10:38 | RADIOLOGY REPORT (SQ) ---
EXAM DESCRIPTION: NM HIDA SCAN COMPLETED DATE/TIME: 07/27/2017 10:20 am REASON FOR STUDY: Rule out cholecystitis COMPARISON: Right upper quadrant ultrasound 07/26/2017 CT abdomen pelvis 07/26/2017 RADIONUCLIDE AND DOSE: DOSAGE RADIONUCLIDE: 4.9 millicuries Tc99m Mebrofenin. DOSAGE MORPHINE: Not required. The route of agent administration: Intravenous TECHNIQUE: Serial imaging right upper quadrant up to 60 minutes following injection of radionuclide. Patient imaged AP and Right Lateral. LIMITATIONS: None. FINDINGS: LIVER: Normal visualization INTRA-HEPATIC BILE DUCTS: Normal visualization COMMON BILE DUCT: Normal visualization GALLBLADDER: Normal visualization OTHER: There is a small amount of reflux of biliary activity into the left upper quadrant by about 30 minutes. This could be biliary reflux into the stomach. IMPRESSION: No scintigraphic evidence of cystic duct or common duct obstruction. There is a small amount of ectopic activity in the left upper quadrant by 30 minutes, likely a small amount of reflux of biliary activity into the stomach TECHNICAL DOCUMENTATION: JOB ID: [id number] [employer]- All Rights Reserved
[2017-07-27] MEDS: FAMOTIDINE INJ/PF 20 MG/2 ML SDV IV SCH (10:44)
[2017-07-27] MEDS ORDERED: LEVOFLOXACIN 500 MG/D5W RTU 500 MG/100 ML RTUPB IV ONE (12:00)
[2017-07-28 05:02] LABS: ABSOLUTE EOSINOPHILS # (AUTO) 0.1 10^3/uL (0.0-0.6); ABSOLUTE LYMPHOCYTES (AUTO) 1.4 10^3/uL (0.5-4.7); ABSOLUTE MONOCYTES (AUTO) 0.6 10^3/uL (0.1-1.4); ABSOLUTE NEUT (AUTO) 3.4 10^3/uL (1.7-8.2); BASOPHILS % (AUTO) 0.5 % (0-2); HEMATOCRIT 31.6 % (36.0-47.0); HEMOGLOBIN 11.1 g/dL (12.0-15.5); HGB HCT DIFFERENCE 1.7; MEAN CORPUSCULAR HEMOGLOBIN 32.8 pg (27.0-33.4); MEAN CORPUSCULAR HGB CONC 35.1 g/dL (32.0-36.0); MEAN CORPUSCULAR VOLUME 93 fl (80-97); MONOCYTES % (AUTO) 11.6 % (3-13); RED BLOOD COUNT 3.38 10^6/uL (3.72-5.28); RED CELL DISTRIBUTION WIDTH 12.3 % (11.5-14.0); SEGMENTED NEUTROPHILS % (AUTO) 60.9 % (42-78); WHITE BLOOD COUNT 5.5 10^3/uL (4.0-10.5)
--- NOTE | 2017-07-28 05:20 | PDOC PROGRESS REPORT ---
Subjective Progress Note for:: 07/28/17 Subjective:: Somewhat better. Less pain. No dysphagia with supper, but complained of it in office. HIDA normal. Cholecystectomy was cancelled. Misses her lactulose. Physical Exam Vital Signs: Temp Pulse Resp BP Pulse Ox 98.5 F 68 14 133/68 H 100 07/27/17 23:08 07/27/17 23:08 07/27/17 23:08 07/27/17 23:08 07/27/17 23:08 Intake & Output 07/26/17 07/27/17 07/28/17 07:59 07:59 07:59 Intake Total 0 910 Output Total 920 Balance 0 -10 Weight 171 lb 11.841 oz 173 lb 15.115 oz General appearance: PRESENT: no acute distress Respiratory exam: PRESENT: clear to auscultation yinka Cardiovascular exam: ABSENT: diastolic murmur, irregular rhythm, systolic murmur GI/Abdominal exam: PRESENT: tenderness - minimal epigastric. ABSENT: mass, organolmegaly Extremities exam: ABSENT: pedal edema Neurological exam: PRESENT: oriented to situation Psychiatric exam: PRESENT: appropriate affect Results Laboratory Results: 07/28/17 03:52 07/28/17 03:52 WBC 5.5 RBC 3.38 L Hgb 11.1 L Hct 31.6 L MCV 93 MCH 32.8 MCHC 35.1 RDW 12.3 Plt Count 199 Seg Neutrophils % 60.9 Lymphocytes % 25.0 Monocytes % 11.6 Eosinophils % 2.0 Basophils % 0.5 Absolute Neutrophils 3.4 Absolute Lymphocytes 1.4 Absolute Monocytes 0.6 Absolute Eosinophils 0.1 Absolute Basophils 0.0 Impressions: Abdomen Ultrasound 07/26/17 14:05 IMPRESSION: Gallbladder sludge. No gallbladder wall thickening or pericholecystic fluid. No shadowing stones. Chest X-Ray 07/26/17 14:05 IMPRESSION: NO SIGNIFICANT RADIOGRAPHIC FINDING IN THE CHEST. Abdomen/Pelvis CT 07/26/17 18:27 IMPRESSION: The gallbladder is somewhat distended. No stones are seen. There is no ductal dilatation. There are no findings that explain the patient's pain. Hepatobiliary Scan Nuclear Medicine 07/27/17 00:00 IMPRESSION: No scintigraphic evidence of cystic duct or common duct obstruction. There is a small amount of ectopic activity in the left upper quadrant by 30 minutes, likely a small amount of reflux of biliary activity into the stomach Assessment & Plan - Diagnosis (1) Biliary colic Is this a current diagnosis for this admission?: Yes (2) Acute kidney injury Is this a current diagnosis for this admission?: Yes (3) Type 2 diabetes mellitus with diabetic chronic kidney disease Qualifiers: Diabetes mellitus detention insulin use: with detention use Chronic kidney disease stage: stage 4 (severe) Qualified Code(s): E11.22 - Type 2 diabetes mellitus with diabetic chronic kidney disease; N18.4 - Chronic kidney disease, stage 4 (severe); N18.4 - Chronic kidney disease, stage 4 (severe); N18.4 - Chronic kidney disease, stage 4 (severe); N18.4 - Chronic kidney disease, stage 4 (severe); 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
[2017-07-28 05:26] LABS: ALANINE AMINOTRANSFERASE 25 U/L (9-52); ALBUMIN 3.4 g/dL (3.5-5.0); ALKALINE PHOSPHATASE 49 U/L (38-126); ANION GAP 12 (5-19); ASPARTATE AMINO TRANSFERASE 20 U/L (14-36); BILIRUBIN,DIRECT 0.3 mg/dL (0.0-0.4); BILIRUBIN,TOTAL 0.8 mg/dL (0.2-1.3); BLOOD UREA NITROGEN 17 mg/dL (7-20); CALCIUM 8.8 mg/dL (8.4-10.2); CARBON DIOXIDE 23 mmol/L (22-30); CHLORIDE 111 mmol/L (98-107); CREATININE RESULT 1.26 mg/dL (0.52-1.25); GLUCOSE 108 mg/dL (75-110); POTASSIUM 4.4 mmol/L (3.6-5.0); SODIUM 146.2 mmol/L (137-145); TOTAL PROTEIN 6.5 g/dL (6.3-8.2)
[2017-07-28] MEDS: LEVOFLOXACIN 500 MG/D5W RTU 500 MG/100 ML RTUPB IV SCH (09:31)
[2017-07-28] MEDS: LACTULOSE SYRUP 20 GM/30 ML UDCUP PO SCH ×2 (09:31→17:13)
[2017-07-28] MEDS: FAMOTIDINE INJ/PF 20 MG/2 ML SDV IV SCH (09:31)
--- NOTE | 2017-07-28 15:37 | PDOC PROGRESS REPORT ---
Subjective Progress Note for:: 07/28/17 Subjective:: pain minimal pt c/o she cant eat much , feels full / pain swallowing Physical Exam Vital Signs: Temp Pulse Resp BP Pulse Ox 98.0 F 73 14 139/69 H 100 07/28/17 12:06 07/28/17 12:06 07/28/17 12:06 07/28/17 12:06 07/28/17 12:06 Intake & Output 07/27/17 07/28/17 07/29/17 06:59 06:59 06:59 Intake Total 0 2340 330 Output Total 1270 200 Balance 0 1070 130 Weight 77.9 kg 78.9 kg GI/Abdominal exam: PRESENT: other - Mild epigastric tenderness Results Laboratory Results: 07/28/17 03:52 07/28/17 03:52 07/28/17 07/28/17 03:52 03:52 WBC 5.5 RBC 3.38 L Hgb 11.1 L Hct 31.6 L MCV 93 MCH 32.8 MCHC 35.1 RDW 12.3 Plt Count 199 Seg Neutrophils % 60.9 Lymphocytes % 25.0 Monocytes % 11.6 Eosinophils % 2.0 Basophils % 0.5 Absolute Neutrophils 3.4 Absolute Lymphocytes 1.4 Absolute Monocytes 0.6 Absolute Eosinophils 0.1 Absolute Basophils 0.0 Sodium 146.2 H Potassium 4.4 Chloride 111 H Carbon Dioxide 23 Anion Gap 12 BUN 17 Creatinine 1.26 H Est GFR ( Amer) 48 L Est GFR (Non-Af Amer) 40 L Glucose 108 Calcium 8.8 Total Bilirubin 0.8 AST 20 ALT 25 Alkaline Phosphatase 49 Total Protein 6.5 Albumin 3.4 L Lipase 89.0 Impressions: Abdomen Ultrasound 07/26/17 14:05 IMPRESSION: Gallbladder sludge. No gallbladder wall thickening or pericholecystic fluid. No shadowing stones. Chest X-Ray 07/26/17 14:05 IMPRESSION: NO SIGNIFICANT RADIOGRAPHIC FINDING IN THE CHEST. Abdomen/Pelvis CT 07/26/17 18:27 IMPRESSION: The gallbladder is somewhat distended. No stones are seen. There is no ductal dilatation. There are no findings that explain the patient's pain. Hepatobiliary Scan Nuclear Medicine 07/27/17 00:00 IMPRESSION: No scintigraphic evidence of cystic duct or common duct obstruction. 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
[2017-07-28] MEDS: NORMAL SALINE 1000 ML 1,000 ML IV PRN (21:39)
--- NOTE | 2017-07-29 08:30 | PDOC PROGRESS REPORT ---
Subjective Progress Note for:: 07/29/17 Subjective:: still lower esophageal dysphagia. Less pain. Awaiting GI consult. 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 Physical Exam Vital Signs: Temp Pulse Resp BP Pulse Ox 98.6 F 73 16 143/60 H 100 07/28/17 23:57 07/28/17 23:57 07/28/17 23:57 07/28/17 23:57 07/28/17 23:57 Intake & Output 07/28/17 07/29/17 07/30/17 07:59 07:59 07:59 Intake Total 2340 1331 Output Total 1270 200 Balance 1070 1131 Weight 173 lb 15.115 oz 173 lb 4.533 oz General appearance: PRESENT: no acute distress Respiratory exam: PRESENT: clear to auscultation yinka Cardiovascular exam: ABSENT: diastolic murmur, systolic murmur Neurological exam: PRESENT: oriented to situation Psychiatric exam: PRESENT: appropriate affect Results Laboratory Results: 07/28/17 03:52 07/28/17 03:52 Impressions: Abdomen Ultrasound 07/26/17 14:05 IMPRESSION: Gallbladder sludge. No gallbladder wall thickening or pericholecystic fluid. No shadowing stones. Chest X-Ray 07/26/17 14:05 IMPRESSION: NO SIGNIFICANT RADIOGRAPHIC FINDING IN THE CHEST. Abdomen/Pelvis CT 07/26/17 18:27 IMPRESSION: The gallbladder is somewhat distended. No stones are seen. There is no ductal dilatation. There are no findings that explain the patient's pain. Hepatobiliary Scan Nuclear Medicine 07/27/17 00:00 IMPRESSION: No scintigraphic evidence of cystic duct or common duct obstruction. There is a small amount of ectopic activity in the left upper quadrant by 30 minutes, likely a small amount of reflux of biliary activity into the stomach Assessment & Plan - Diagnosis (1) Biliary colic Is this a current diagnosis for this admission?: Yes Plan: try ursodiol (2) Acute kidney injury Is this a current diagnosis for this admission?: Yes (3) Type 2 diabetes mellitus with diabetic chronic kidney disease Qualifiers: Diabetes mellitus terminal clerk insulin use: with alf use Chronic kidney disease stage: stage 4 (severe) Qualified Code(s): E11.22 - Type 2 diabetes mellitus with diabetic chronic kidney disease; N18.4 - Chronic kidney disease, stage 4 (severe); N18.4 - Chronic kidney disease, stage 4 (severe); N18.4 - Chronic kidney disease, stage 4 (severe); N18.4 - Chronic kidney disease, stage 4 (severe); Z79.4 - alf (current) use of insulin; Z79.4 - termite exterminator helper ( current) use of insulin; Z79.4 - alf (current) use of insulin; Z79.4 - termite exterminator helper (current) use of insulin Is this a current diagnosis for this admission?: Yes (4) Dysphagia Qualifiers: Dysphagia type: esophageal phase Qualified Code(s): R13.10 - Dysphagia, unspecified Is this a current diagnosis for this admission?: Yes Plan: barium swallow UGI (5) Constipation by delayed colonic transit Is this a current diagnosis for this admission?: Yes - Inpatient Certification Medical Necessity: Failure to Improve With Outpatient Therapy, Significant Comorbidiites Make Outpatient Treatment Too Risky, Need Close Monitoring Due to Risk of Patient Decompensation, Risk of Complication if Not Cared For in Hospital, Risk of Diagnosis Which Will Require Inpatient Eval/Care/Monitoring
[2017-07-29] MEDS: FAMOTIDINE INJ/PF 20 MG/2 ML SDV IV SCH (10:38)
[2017-07-29] MEDS: LACTULOSE SYRUP 20 GM/30 ML UDCUP PO SCH ×2 (10:38→17:24)
[2017-07-29] MEDS: LEVOFLOXACIN 500 MG/D5W RTU 500 MG/100 ML RTUPB IV SCH (10:38)
[2017-07-29] MEDS: URSODIOL 300 MG CAPSULE PO SCH (11:38)
[2017-07-29] MEDS ORDERED: NALOXONE HCL INJ/PF 0.4 MG/1 ML SDV ONE (13:52)
[2017-07-29] MEDS ORDERED: GLYCOPYRROLATE INJ 0.4 MG/2 ML VIAL ONE (13:52)
[2017-07-29] MEDS ORDERED: ONDANSETRON HCL INJ/PF 4 MG/2 ML SDV ONE (13:52)
[2017-07-29] MEDS ORDERED: FLUMAZENIL INJ 0.5 MG/5 ML VIAL ONE (13:53)
[2017-07-29] MEDS ORDERED: FENTANYL CITRATE INJ/PF 100 MCG/2 ML AMPUL ONE (13:53)
[2017-07-29] MEDS ORDERED: GLUCAGON,HUMAN RECOMB 1 MG INJ ONE (13:53)
[2017-07-29] MEDS ORDERED: EPINEPHRINE INJ 1 MG/10 ML DISP.SYRIN ONE (13:53)
[2017-07-29] MEDS: MIDAZOLAM 2 MG/2 ML INJ ONE ×2 (14:28→14:33)
--- NOTE | 2017-07-29 15:58 | OPERATIVE REPORT E ---
Operative Report NAME: JOSE ZALDIVAR : 1930 AGE: 87Y DATE OF SURGERY: 07/29/2017 ROOM: 424 PREOPERATIVE DIAGNOSIS: Epigastric pain. POSTOPERATIVE DIAGNOSES: 1. Epigastric pain. 2. Small hiatal hernia. 3. Mild gastritis. 4. Mild duodenitis. OPERATION: 1. Esophagogastroduodenoscopy. 2. Mucosal biopsy of the gastric antrum for CLOtesting. SURGEON: DE GUERRA M.D. ANESTHESIA: Conscious sedation. COMPLICATIONS: None. ESTIMATED BLOOD LOSS: Scant. DRAINS: None. TISSUE REMOVED OR ALTERED: Mucosal biopsy. DESCRIPTION OF PROCEDURE: Patient was taken from the 4th floor to the 5th floor endoscopy suite where conscious sedation was induced. A surgical plan and surgical timeout were conducted. The posterior pharynx had been previously anesthetized with topical lidocaine. An oral mouthpiece was inserted. The patient was tilted to the left side. The flexible adult upper endoscope was advanced through the hypopharynx, through the esophagus, through the stomach and into the duodenum. This was a well-tolerated study. The duodenum showed mild duodenitis. No evidence of ulcer, stricture or bleeding. Photos were taken. There was no narrowing of the pylorus. No biopsies were taken of the duodenum. The scope was brought back through the pylorus, examining the antrum. Mild flecks of old blood seen. There was a minimal amount of partially digested food in the body of the stomach. There was no evidence of polyp, stricture, bleeding or lenny ulceration. A random biopsy of the gastric antrum was obtained for CLOtesting. There was a small hiatal hernia upon retroflexion of the scope. The scope was brought back through the GE junction, which was approximately 41 cm from the incisor. There was no evidence of esophagitis or stricture. No biopsies were taken of the distal esophagus. The rest of the esophagus was unremarkable. No lesions seen. No evidence of esophageal varices. The scope was withdrawn from the patient's oropharynx. She tolerated the procedure well. Recommendations will be made to the medical service for ongoing medical management; no indication for surgical intervention at this time. DICTATING PHYSICIAN: ED GUERRA M.D. [id number] Y#: [id number] ID: [id number] JOB#: [id number] ACCT: [id number] cc:ED GUERRA M.D. >
[2017-07-30] MEDS: NORMAL SALINE 1000 ML 1,000 ML IV PRN (05:05)
--- NOTE | 2017-07-30 08:25 | PDOC PROGRESS REPORT ---
Subjective Progress Note for:: 07/30/17 Subjective:: some pain last pm Physical Exam Vital Signs: Temp Pulse Resp BP Pulse Ox 98.5 F 63 16 147/60 H 100 07/29/17 23:12 07/29/17 23:12 07/29/17 23:12 07/29/17 23:12 07/29/17 23:12 Intake & Output 07/29/17 07/30/17 07/31/17 07:59 07:59 07:59 Intake Total 1331 2350 Output Total 200 1300 Balance 1131 1050 Weight 173 lb 4.533 oz 173 lb 4.533 oz General appearance: PRESENT: no acute distress Respiratory exam: PRESENT: clear to auscultation yinka Cardiovascular exam: ABSENT: diastolic murmur, irregular rhythm, systolic murmur GI/Abdominal exam: ABSENT: mass, organolmegaly, tenderness Neurological exam: PRESENT: oriented to situation Psychiatric exam: PRESENT: appropriate affect Results Laboratory Results: 07/28/17 03:52 07/28/17 03:52 Impressions: Abdomen Ultrasound 07/26/17 14:05 IMPRESSION: Gallbladder sludge. No gallbladder wall thickening or pericholecystic fluid. No shadowing stones. Chest X-Ray 07/26/17 14:05 IMPRESSION: NO SIGNIFICANT RADIOGRAPHIC FINDING IN THE CHEST. Abdomen/Pelvis CT 07/26/17 18:27 IMPRESSION: The gallbladder is somewhat distended. No stones are seen. There is no ductal dilatation. There are no findings that explain the patient's pain. Hepatobiliary Scan Nuclear Medicine 07/27/17 00:00 IMPRESSION: No scintigraphic evidence of cystic duct or common duct obstruction. There is a small amount of ectopic activity in the left upper quadrant by 30 minutes, likely a small amount of reflux of biliary activity into the stomach Assessment & Plan - Diagnosis (1) Biliary colic Is this a current diagnosis for this admission?: Yes Plan: only pain explanation so far is biliary dyskinesis presumed from gall bladder distended by sludge. Ursodiol may help eventually. (2) Acute kidney injury Is this a current diagnosis for this admission?: Yes (3) Type 2 diabetes mellitus with diabetic chronic kidney disease Qualifiers: Diabetes mellitus intermediate insulin use: with intermediate manager use Chronic kidney disease stage: stage 4 (severe) Qualified Code(s): E11.22 - Type 2 diabetes mellitus with diabetic chronic kidney disease; N18.4 - Chronic kidney disease, stage 4 (severe); N18.4 - Chronic kidney disease, stage 4 (severe); N18.4 - Chronic kidney disease, stage 4 (severe); N18.4 - Chronic kidney disease, stage 4 (severe); Z79.4 - jail (current) use of insulin; Z79.4 - jail ( current) use of insulin; Z79.4 - jail (current) use of insulin; Z79.4 - oil heaterman (current) use of insulin Is this a current diagnosis for this admission?: Yes (4) Dysphagia Qualifiers: Dysphagia type: esophageal phase Qualified Code(s): R13.10 - Dysphagia, unspecified Is this a current diagnosis for this admission?: Yes Plan: Endoscopy only mild erythema in stomach and duodenum. (5) Constipation by delayed colonic transit Is this a current diagnosis for this admission?: Yes Plan: stooling - Inpatient Certification Medical Necessity: Significant Comorbidiites Make Outpatient Treatment Too Risky , Need Close Monitoring Due to Risk of Patient Decompensation, Need for IV Antibiotics, Risk of Complication if Not Cared For in Hospital, Risk of Diagnosis Which Will Require Inpatient Eval/Care/Monitoring - Plan Summary Plan Summary: home tomorrow if pain not too bad
[2017-07-30] MEDS: LEVOFLOXACIN 500 MG/D5W RTU 500 MG/100 ML RTUPB IV SCH (10:18)
[2017-07-30] MEDS: LACTULOSE SYRUP 20 GM/30 ML UDCUP PO SCH ×2 (10:18→17:13)
[2017-07-30] MEDS: FAMOTIDINE INJ/PF 20 MG/2 ML SDV IV SCH (10:19)
[2017-07-30] MEDS: URSODIOL 300 MG CAPSULE PO SCH (10:19)
--- NOTE | 2017-07-31 06:32 | PDOC DISCHARGE SUMMARY ---
General - Admit/Disc Date/PCP Admission Date/Primary Care Provider: 07/27/17 00:46 SUKI CHURCH MD Discharge Date: 07/31/17 - Discharge Diagnosis (1) Biliary colic Is this a current diagnosis for this admission?: Yes (2) Acute kidney injury Is this a current diagnosis for this admission?: Yes (3) Type 2 diabetes mellitus with diabetic chronic kidney disease Is this a current diagnosis for this admission?: Yes (4) Dysphagia Is this a current diagnosis for this admission?: Yes (5) Constipation by delayed colonic transit Is this a current diagnosis for this admission?: Yes - Additional Information Resuscitation Status: Full Code Discharge Diet: Diabetic Discharge Activity: Activity As Tolerated Home Medications: Ranitidine HCl [Zantac] 300 mg PO DAILY 03/17/15 Aspirin [Aspirin 81 mg Chewable Tablet] 81 mg PO DAILY #100 tab.chew 03/18/15 Atorvastatin Calcium 10 mg PO DAILY #30 tablet 03/18/15 Ropinirole HCl 0.25 mg PO TID 07/17/17 Tramadol HCl 50 mg PO DAILY 07/17/17 Dulaglutide [Trulicity] 1.5 mg SQ FR@1000 07/18/17 Metformin HCl [Glucophage] 1,000 mg PO BID 07/18/17 Diltiazem HCl [Diltiazem 24Hr Cd] 120 mg PO DAILY #90 cap.er.24h 07/19/17 Ranolazine [Ranexa 500 mg Tab.sr] 500 mg PO Q12 #60 tab.sr.12h 07/19/17 Nitroglycerin [Nitrostat 0.4 mg (1/150 Gr) Tabs 25/Bottle] 1 tab SL Q5MP PRN Insulin Glargine,Hum.rec.anlog [Lantus Solostar] 20 unit SQ QHS #0 07/31/17 Lactulose [Cephulac Syrup 20 gm/30 ml Udcup] 20 gm PO DAILY #1000 ml 07/31/17 Ursodiol [Actigall 300 mg Capsule] 300 mg PO DAILY #90 capsule 07/31/17 History of Present Illness Patient complains of: epigastric pain. dysphagia History of Present Illness: JOSE ZALDIVAR is a 87 year old female with recent minimal ischemia vs artifact on roland and 2w epigastric pain radiating to chest. She could not eat because food seemed to stick low in the esophagus. Hospital Course Hospital Course: CT and US showed gall bladder distended by sludge. HIDA was normal. Cholecystectomy was scheduled but vetoed by radio repair teacher Dr Serrano. Endoscopy showed mild inflamation. Ursodiol was started. Pain improved. Glucose did not go over 150 without insulin. Lantus was trimmed. Creatinine came down off furosemide on IVF. Physical Exam Vital Signs: Temp Pulse Resp BP Pulse Ox 98.3 F 64 13 146/65 H 100 07/30/17 23:18 07/30/17 23:18 07/30/17 23:18 07/30/17 23:18 07/30/17 23:18 Intake & Output 07/29/17 07/30/17 07/31/17 07:59 07:59 07:59 Intake Total 1331 2350 1223 Output Total 200 1300 Balance 1131 1050 1223 Weight 173 lb 4.533 oz 173 lb 4.533 oz General appearance: PRESENT: no acute distress Respiratory exam: PRESENT: clear to auscultation yinka Cardiovascular exam: ABSENT: diastolic murmur, irregular rhythm, systolic murmur GI/Abdominal exam: ABSENT: mass, organolmegaly, tenderness Extremities exam: ABSENT: pedal edema Neurological exam: PRESENT: oriented to situation Psychiatric exam: PRESENT: appropriate affect Results Laboratory Results: 07/28/17 03:52 07/28/17 03:52 Labs- Last Values WBC 5.5 10^3/uL (4.0-10.5) 07/28/17 03:52 RBC 3.38 10^6/uL (3.72-5.28) L 07/28/17 03:52 Hgb 11.1 g/dL (12.0-15.5) L 07/28/17 03:52 Hct 31.6 % (36.0-47.0) L 07/28/17 03:52 MCV 93 fl (80-97) 07/28/17 03:52 MCH 32.8 pg (27.0-33.4) 07/28/17 03:52 MCHC 35.1 g/dL (32.0-36.0) 07/28/17 03:52 RDW 12.3 % (11.5-14.0) 07/28/17 03:52 Plt Count 199 10^3/uL (150-450) 07/28/17 03:52 Seg Neutrophils % 60.9 % (42-78) 07/28/17 03:52 Lymphocytes % 25.0 % (13-45) 07/28/17 03:52 Monocytes % 11.6 % (3-13) 07/28/17 03:52 Eosinophils % 2.0 % (0-6) 07/28/17 03:52 Basophils % 0.5 % (0-2) 07/28/17 03:52 Absolute Neutrophils 3.4 10^3/uL (1.7-8.2) 07/28/17 03:52 Absolute Lymphocytes 1.4 10^3/uL (0.5-4.7) 07/28/17 03:52 Absolute Monocytes 0.6 10^3/uL (0.1-1.4) 07/28/17 03:52 Absolute Eosinophils 0.1 10^3/uL (0.0-0.6) 07/28/17 03:52 Absolute Basophils 0.0 10^3/uL (0.0-0.2) 07/28/17 03:52 Sodium 146.2 mmol/L (137-145) H 07/28/17 03:52 Potassium 4.4 mmol/L (3.6-5.0) 07/28/17 03:52 Chloride 111 mmol/L (98-107) H 07/28/17 03:52 Carbon Dioxide 23 mmol/L (22-30) 07/28/17 03:52 Anion Gap 12 (5-19) 07/28/17 03:52 BUN 17 mg/dL (7-20) 07/28/17 03:52 Creatinine 1.26 mg/dL (0.52-1.25) H 07/28/17 03:52 Est GFR ( Amer) 48 (>60) L 07/28/17 03:52 Est GFR (Non-Af Amer) 40 (>60) L 07/28/17 03:52 Glucose 108 mg/dL (75-110) 07/28/17 03:52 POC Glucose 143 mg/dL (70-110) H 07/30/17 22:13 Calcium 8.8 mg/dL (8.4-10.2) 07/28/17 03:52 Total Bilirubin 0.8 mg/dL (0.2-1.3) 07/28/17 03:52 Direct Bilirubin 0.3 mg/dL (0.0-0.4) 07/28/17 03:52 Indirect Bilirubin Not Reportable 07/28/17 03:52 Neonat Total Bilirubin Not Reportable 07/28/17 03:52 AST 20 U/L (14-36) 07/28/17 03:52 ALT 25 U/L (9-52) 07/28/17 03:52 Alkaline Phosphatase 49 U/L (38-126) 07/28/17 03:52 Creatine Kinase 115 U/L (30-135) 07/26/17 14:20 CK-MB (CK-2) 0.97 ng/mL (<4.55) 07/26/17 14:20 Troponin I 0.021 ng/mL 07/26/17 14:20 Total Protein 6.5 g/dL (6.3-8.2) 07/28/17 03:52 Albumin 3.4 g/dL (3.5-5.0) L 07/28/17 03:52 Lipase 89.0 U/L (23-300) 07/28/17 03:52 Urine Color YELLOW 07/26/17 17:25 Urine Appearance CLEAR 07/26/17 17:25 Urine pH 5.0 (5.0-9.0) 07/26/17 17:25 Ur Specific [place] 1.010 07/26/17 17:25 Urine Protein NEGATIVE mg/dL (NEGATIVE) 07/26/17 17:25 Urine Glucose (UA) NEGATIVE mg/dL (NEGATIVE) 07/26/17 17:25 Urine Ketones NEGATIVE mg/dL (NEGATIVE) 07/26/17 17:25 Urine Blood NEGATIVE (NEGATIVE) 07/26/17 17:25 Urine Nitrite NEGATIVE (NEGATIVE) 07/26/17 17:25 Urine Bilirubin NEGATIVE (NEGATIVE) 07/26/17 17:25 Urine Urobilinogen NEGATIVE mg/dL (<2.0) 07/26/17 17:25 Ur Leukocyte Esterase TRACE (NEGATIVE) H 07/26/17 17:25 Urine WBC (Auto) 2 /HPF 07/26/17 17:25 Urine RBC (Auto) 0 /HPF 07/26/17 17:25 U Hyaline Cast (Auto) 7 /LPF 07/26/17 17:25 Urine Bacteria (Auto) 1+ /HPF 07/26/17 17:25 Squamous Epi Cells Auto <1 /HPF 07/26/17 17:25 Urine Mucus (Auto) RARE /LPF 07/26/17 17:25 Urine Ascorbic Acid NEGATIVE (NEGATIVE) 07/26/17 17:25 Impressions: Abdomen Ultrasound 07/26/17 14:05 IMPRESSION: Gallbladder sludge. No gallbladder wall thickening or pericholecystic fluid. No shadowing stones. Chest X-Ray 07/26/17 14:05 IMPRESSION: NO SIGNIFICANT RADIOGRAPHIC FINDING IN THE CHEST. Abdomen/Pelvis CT 07/26/17 18:27 IMPRESSION: The gallbladder is somewhat distended. No stones are seen. There is no ductal dilatation. There are no findings that explain the patient's pain. Hepatobiliary Scan Nuclear Medicine 07/27/17 00:00 IMPRESSION: No scintigraphic evidence of cystic duct or common duct obstruction. There is a small amount of ectopic activity in the left upper quadrant by 30 minutes, likely a small amount of reflux of biliary activity into the stomach Qualifiers PATEINT BEING DISCHARGED WITH ANY OF THE FOLLOWING DIAGNOSIS?: No Plan Discharge Plan: home with family. 6d ov
[2017-07-31 08:25] VITALS: BP 139/70
[2017-07-31] MEDS ORDERED: LEVOFLOXACIN 250 MG TABLET PO SCH (10:00)
== END 2017-07-31 10:14 | disposition home health service (06) | DRG 445 ==
LOC: ER 12:32 → UNDOADMIN 22:36 → EH 22:36 → 4S 07-27 00:45
PROVIDERS: ADMIT Surgery; ATTEND Surgery
PROC: 0DB68ZX Excision of Stomach, Via Natural or Artificial Opening Endoscopic, Diagnostic (ICD-10-PCS; principal; 2017-07-29 14:30)
DX: K82.8 Other specified diseases of gallbladder (principal); I13.0 Hypertensive heart and chronic kidney disease with heart failure and stage 1 through stage 4 chronic kidney disease, or unspecified chronic kidney disease; N18.4 Chronic kidney disease, stage 4 (severe); N17.9 Acute kidney failure, unspecified; I25.10 Atherosclerotic heart disease of native coronary artery without angina pectoris; I50.9 Heart failure, unspecified; K21.9 Gastro-esophageal reflux disease without esophagitis; F03.90 Unspecified dementia, unspecified severity, without behavioral disturbance, psychotic disturbance, mood disturbance, and anxiety; E11.22 Type 2 diabetes mellitus with diabetic chronic kidney disease; K44.9 Diaphragmatic hernia without obstruction or gangrene; K29.70 Gastritis, unspecified, without bleeding; K29.80 Duodenitis without bleeding; K59.01 Slow transit constipation; R13.19 Other dysphagia; Z79.4 Long term (current) use of insulin; I25.2 Old myocardial infarction; Z90.49 Acquired absence of other specified parts of digestive tract; Z90.11 Acquired absence of right breast and nipple; Z85.3 Personal history of malignant neoplasm of breast
CPT/HCPCS: 36415; 43239; 71020; 74176; 76705; 78226; 80053; 81001; 82550; 82553; 82962; 83690; 84484; 85025; 88305; 88342; 93005; 93010; 93976; 96360; 99285; A9537; J0171; J1610; J1956; J2250; J2310; J2405; J3010; J3490; J7030; Q9969; S0028

== ENCOUNTER → 2018-01-13 | Outpatient (CLI) | payer MEDICARE, OTHER ==
[2018-01-13 11:52] LABS: ALANINE AMINOTRANSFERASE 16 U/L (9-52); ALBUMIN 4.2 g/dL (3.5-5.0); ALKALINE PHOSPHATASE 42 U/L (38-126); ASPARTATE AMINO TRANSFERASE 16 U/L (14-36); BILIRUBIN,DIRECT 0.1 mg/dL (0.0-0.4); BILIRUBIN,TOTAL 0.8 mg/dL (0.2-1.3); TOTAL PROTEIN 7.2 g/dL (6.3-8.2)
== END ==
LOC: OD 10:25
PROVIDERS: ATTEND Radiology Radiation Oncology
DX: C50.211 Malignant neoplasm of upper-inner quadrant of right female breast (principal); Z79.899 Other long term (current) drug therapy
CPT/HCPCS: 36415; 80076

== ENCOUNTER 2018-06-11 15:30 | Observation (INO) | payer MEDICARE, OTHER ==
--- NOTE | 2018-06-11 15:41 | ER Document Report ---
ED General - General Stated Complaint: CHEST PAIN Time Seen by Provider: 06/11/18 15:40 Notes: Patient is an 87-year-old female with diabetes mellitus and hyperlipidemia and hypertension that presents to the emergency department for chief complaint of left-sided chest pain. Patient states that the pain has been intermittent over the last 24 hours, she describes the pain is worse with deep inspiration particularly on the left side, she does have pain radiating to her left arm as well. She was given for 81 mg aspirin prior to ED arrival as well as nitroglycerin which she states did seem to help her chest discomfort. She also admits to having some shortness of breath associated with this, but denies any diaphoresis, nausea or vomiting. She denies having any history of stents or CABG in the past, but does have CAD based on prior nuclear imaging. TRAVEL OUTSIDE OF THE [place] IN LAST 30 DAYS: No - Related Data Allergies/Adverse Reactions: simvastatin [Simvastatin] Adverse Reaction (Verified 07/26/17 13:14) Hepatic dysfunction Past Medical History - Social History Smoking Status: Never Smoker Frequency of alcohol use: None Drug Abuse: None Family History: Hypertension, Malignancy - Past Medical History Cardiac Medical History: Reports: Hx Congestive Heart Failure - 2013 mild mr. Stiffness., Hx Coronary Artery Disease - 2014 nonobstructing, Hx Heart Attack, Hx Hypercholesterolemia, Hx Hypertension Pulmonary Medical History: Reports: Hx Bronchitis, Hx Pneumonia Denies: Hx Asthma, Hx COPD, Hx Tuberculosis Neurological Medical History: Denies: Hx Cerebrovascular Accident, Hx Seizures Endocrine Medical History: Reports: Hx Diabetes Mellitus Type 2 Renal/ Medical History: Reports: Hx Renal Insufficiency. Denies: Hx Peritoneal Dialysis Malignancy Medical History: Reports: Hx Breast Cancer - 2010 Rductal invasive T1c surgery radiation ansatrozole GI Medical History: Reports: Hx Gastroesophageal Reflux Disease, Hx Ulcer, Hx Colonoscopy. 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 Denies: Hx Open Heart Surgery, Hx Pacemaker - Immunizations Immunizations up to date: Yes Hx Diphtheria, Pertussis, Tetanus Vaccination: Yes Hx Pneumococcal Vaccination: 07/24/12 Review of Systems - Review of Systems Constitutional: No symptoms reported. denies: Chills, Fever EENT: No symptoms reported. denies: Eye discharge, Nose congestion, Nose discharge, Sinus pressure Cardiovascular: No symptoms reported, Chest pain, Dyspnea. denies: Palpitations , Lightheaded Respiratory: No symptoms reported, Hurts to breathe, Short of breath. denies: Hemoptysis, Wheezing Gastrointestinal: No symptoms reported Genitourinary: No symptoms reported. denies: Dysuria, Frequency, Flank pain Female Genitourinary: No symptoms reported Musculoskeletal: No symptoms reported. denies: Leg swelling, Ankle swelling Skin: No symptoms reported. denies: Rash Hematologic/Lymphatic: No symptoms reported Neurological/Psychological: No symptoms reported, Anxiety. denies: Weakness, Numbness Physical Exam - Vital signs Vitals: Resp Pulse Ox 11 L 100 06/11/18 15:45 06/11/18 15:45 Notes: Reviewed - General General appearance: Alert In distress: Mild Notes: Appears anxious, conversational dyspnea - HEENT Head: Normocephalic, Atraumatic Eyes: Normal Extraocular movements intact: Yes Pupils: PERRL Pharynx: Normal Neck: Normal. No: Anterior cervical chain, Posterior cervical chain, Carotid bruit - ` - Respiratory Respiratory status: No respiratory distress Chest status: Nontender Breath sounds: Normal. No: Wheezing Chest palpation: Normal - Cardiovascular Heart sounds: Normal auscultation - Abdominal Inspection: Normal Distension: No distension Bowel sounds: Normal Tenderness: Nontender Organomegaly: No organomegaly - Extremities General upper extremity: Normal inspection, Nontender, Normal color, Normal ROM , Normal temperature. No: Edema General lower extremity: Normal inspection, Nontender, Normal color, Normal ROM , Normal temperature, Normal weight bearing. No: Edema, Trina's sign - Neurological Neuro grossly intact: Yes Cognition: Normal Orientation: AAOx4 Logan Coma Scale Eye Opening: Spontaneous Logan Coma Scale Verbal: Oriented Kannan Coma Scale Motor: Obeys Commands Kannan Coma Scale Total: 15 Speech: Normal Motor strength normal: LUE, RUE, LLE, RLE Sensory: Normal - Skin Skin Temperature: Warm Skin Moisture: Dry Skin Color: Normal Course - Re-evaluation Re-evalutation: 06/11/18 Patient seen and examined, vital signs reviewed, patient no focal findings on exam, but was complaining of pleuritic chest pain, patiently worked up from a cardiac standpoint as well as a CTA of the chest, given the pleuritic nature of the chest pain. Patient was medicated with aspirin and nitroglycerin by EMS. Patient's blood work was reviewed, troponin negative, rest of her blood work was grossly unremarkable, pending CT angiogram of the chest for evaluation for possible PE. 06/11/18 18:[address] angiogram of the chest was reviewed, and negative for pulmonary embolism, feel given the patient's heart score of 6, advanced age, and significant risk factors for cardiovascular disease, that she should be observed in the hospital for serial troponin testing, initial troponin was negative, and chest x-ray unremarkable, patient and patient's family members at bedside, were made aware of plan of care, and were agreeable to this. Call was placed to the hospitalist. 06/11/18 18:45 Patient was accepted on to the hospitalist service, for chest pain rule out, discussed the case with Dr. Damian. - Vital Signs Vital signs: Temp Pulse Resp BP Pulse Ox 20 192/78 H 100 06/11/18 18:00 06/11/18 16:01 06/11/18 18:00 - Laboratory Result Diagrams: 06/11/18 15:48 06/11/18 15:48 Laboratory results interpreted by me: 06/11/18 06/11/18 15:48 15:48 RBC 3.04 L Hgb 10.1 L Hct 29.6 L Sodium 145.2 H Chloride 109 H Est GFR (Non-Af Amer) 49 L Glucose 113 H - EKG Interpretation by Me Additional EKG results interpreted by me: 06/11/18 16:13 EKG demonstrates sinus rhythm, with occasional PAC, normal axis, normal intervals ,no ST changes noted, no evidence of acute ischemia on this EKG. This is compared with prior EKG from 07/26/2017, without significant change. Discharge - Discharge Clinical Impression: Chest pain with moderate risk for cardiac etiology Condition: Good Disposition: ADMITTED OBSERVATION Admitting Provider: Hospitalist Unit Admitted: Telemetry Referrals: JENIFER VALVERDE DO [ACTIVE STAFF] - Follow up as needed
[2018-06-11 16:15] LABS: ABSOLUTE EOSINOPHILS # (AUTO) 0.1 10^3/uL (0.0-0.6); ABSOLUTE LYMPHOCYTES (AUTO) 1.6 10^3/uL (0.5-4.7); ABSOLUTE MONOCYTES (AUTO) 0.7 10^3/uL (0.1-1.4); ABSOLUTE NEUT (AUTO) 2.9 10^3/uL (1.7-8.2); BASOPHILS % (AUTO) 0.5 % (0-2); EOSINOPHILS % (AUTO) 1.4 % (0-6); HEMATOCRIT 29.6 % (36.0-47.0); HEMOGLOBIN 10.1 g/dL (12.0-15.5); LYMPHOCYTES % (AUTO) 30.4 % (13-45); MEAN CORPUSCULAR HEMOGLOBIN 33.2 pg (27.0-33.4); MEAN CORPUSCULAR HGB CONC 34.2 g/dL (32.0-36.0); MEAN CORPUSCULAR VOLUME 97 fl (80-97); MONOCYTES % (AUTO) 12.9 % (3-13); PLATELET COUNT 201 10^3/uL (150-450); RED BLOOD COUNT 3.04 10^6/uL (3.72-5.28); RED CELL DISTRIBUTION WIDTH 12.6 % (11.5-14.0); SEGMENTED NEUTROPHILS % (AUTO) 54.8 % (42-78); TOTAL CELLS COUNTED % (AUTO) 100 %; WHITE BLOOD COUNT 5.3 10^3/uL (4.0-10.5)
[2018-06-11 16:24] LABS: ALANINE AMINOTRANSFERASE 18 U/L (9-52); ALBUMIN 3.7 g/dL (3.5-5.0); ALKALINE PHOSPHATASE 38 U/L (38-126); ANION GAP 12 (5-19); ASPARTATE AMINO TRANSFERASE 18 U/L (14-36); BILIRUBIN,DIRECT 0.2 mg/dL (0.0-0.4); BILIRUBIN,TOTAL 0.5 mg/dL (0.2-1.3); BLOOD UREA NITROGEN 18 mg/dL (7-20); CALCIUM 8.9 mg/dL (8.4-10.2); CARBON DIOXIDE 24 mmol/L (22-30); CHLORIDE 109 mmol/L (98-107); CREATINE KINASE 119 U/L (30-135); GLUCOSE 113 mg/dL (75-110); POTASSIUM 4.2 mmol/L (3.6-5.0); SODIUM 145.2 mmol/L (137-145)
--- NOTE | 2018-06-11 16:27 | RADIOLOGY REPORT (SQ) ---
EXAM DESCRIPTION: CHEST SINGLE VIEW COMPLETED DATE/TIME: 06/11/2018 4:16 pm REASON FOR STUDY: bed mp cp COMPARISON: 07/26/2017 EXAM PARAMETERS: NUMBER OF VIEWS: One view. TECHNIQUE: Single frontal radiographic view of the chest acquired. RADIATION DOSE: NA LIMITATIONS: None. FINDINGS: LUNGS AND PLEURA: There appear to be mild chronic interstitial changes. No infiltrate, ef fusion, or mass. MEDIASTINUM AND HILAR STRUCTURES: No masses. Contour normal. HEART AND VASCULAR STRUCTURES: Heart normal in size. Normal vasculature. BONES: No acute findings. HARDWARE: None in the chest. OTHER: No other significant finding. IMPRESSION: Mild chronic lung changes with no acute cardiopulmonary disease. TECHNICAL DOCUMENTATION: JOB ID: [id number] [employer]- All Rights Reserved Reading location - IP/workstation name: [email or web address]
[2018-06-11 16:34] LABS: TROPONIN I < 0.012 ng/mL
--- NOTE | 2018-06-11 18:14 | RADIOLOGY REPORT (SQ) ---
EXAM DESCRIPTION: CTA CHEST COMPLETED DATE/TIME: 06/11/2018 5:57 pm REASON FOR STUDY: left sided pleuritic chest pain, dyspnea COMPARISON: Chest x-ray 06/11/2018 TECHNIQUE: CT scan of the chest performed using helical scanning technique with dynamic intravenous contrast injection. Images reviewed with lung, soft tissue and bone windows. Reconstructed coronal and sagittal MPR images reviewed. Additional 3 dimensional post-processing performed to develop Maximal Intensity Projection images (NM P). All images stored on PACS. All CT scanners at this facility use dose modulation, iterative reconstruction, and/or weight based d osing when appropriate to reduce radiation dose to as low as reasonably achievable (ALARA). [facility]: Dose Right [facility]: CareDose [facility]: Dose Right [facility]: Teradose 4D [facility]: Blueprint Medicines CONTRAST TYPE AND DOSE: contrast/concentration: Isovue 350.00 mg/ml; Total Contrast Delivered: 73.0 ml; Total Saline Delivered: 110.0 ml Contrast bolus optimized for the pulmonary arteries. Not diagnostic for the aorta. RENAL FUNCTION: BUN 18 creatinine 1.1 RADIATION DOSE: CT Rad equipment meets quality standard of care and radiation dose reduction techniq ues were employed. CTDIvol: 16.7 - 19.8 mGy. DLP: 600 mGy-cm. . LIMITATIONS: None. FINDINGS: LUNGS AND PLEURA: No masses, infiltrates, or pneumothorax. No pleural effusions or pleura l calcifications. AORTA AND GREAT VESSELS: No aneurysm. Contrast bolus not optimized for the aorta. HEART: No pericardial effusion. No significant coronary artery calcifications. PULMONARY ARTERIES: No emboli visualized in the main pulmonary arteries or the segmental branches. HILAR AND MEDIASTINAL STRUCTURES: No identified masses or abnormal nodes. HARDWARE: None in the chest. UPPER ABDOMEN: No significant findings. Limited exam. THYROID AND OTHER SOFT TISSUES: No masses. No adenopathy. BONES: No acute or significant finding. 3D MIPS: Confirm above findings. OTHER: No other significant finding. IMPRESSION: NORMAL CTA OF THE CHEST. NO PULMONARY EMBOLI. COMMENT: Quality ID # [id number]: Final reports with documentation of one or more dose reduction techniques (e.g., Automated exposure control, adjustment of the mA and/or kV according to patient size, use of iterative reconstruction technique) TECHNICAL DOCUMENTATION: JOB ID: [id number] [employer]- All Rights Reserved Reading location - IP/workstation name: [email or web address]
--- NOTE | 2018-06-11 19:26 | EKG REPORT ---
SEVERITY:- ABNORMAL ECG - SINUS OR ECTOPIC ATRIAL RHYTHM INCOMPLETE RIGHT BUNDLE BRANCH BLOCK : Confirmed by: Brian Sal MD 11-Jun-2018 19:24:16
[2018-06-11] MEDS ORDERED: DEXTROSE 50%-WATER 25 GM/50 ML DISP.SYRIN IV PRN ×3 (20:45→21:02)
[2018-06-11] MEDS ORDERED: NITROGLYCERIN 0.4 MG/TAB 25 TAB/BOTTLE SL PRN (20:45)
[2018-06-11] MEDS ORDERED: GLUCAGON,HUMAN RECOMB 1 MG INJ IM PRN (21:02)
[2018-06-11] MEDS ORDERED: DEXTROSE 40% GEL 15 GM TUBE PO PRN ×2 (21:02)
[2018-06-11] MEDS ORDERED: INSULIN REG, HUMAN 100 UNIT/ML 3 ML VIAL (PYX) SUBCUT PRN (21:02)
[2018-06-11] MEDS ORDERED: DILTIAZEM HCL 240 MG CAPSULE.CR PO SCH (21:15)
[2018-06-11] MEDS ORDERED: ENOXAPARIN SODIUM INJ 80 MG/0.8 ML DISP.SYRIN SUBCUT ONE (22:15)
[2018-06-11] MEDS: ATORVASTATIN CALCIUM 10 MG TABLET PO SCH (22:56)
[2018-06-11] MEDS: FAMOTIDINE 20 MG TABLET PO SCH (22:56)
--- NOTE | 2018-06-12 07:00 | PDOC H&P ---
History of Present Illness Admission Date/PCP: 06/11/18 18:57 LANA ALVAREZ MD Patient complains of: chest pain History of Present Illness: JOSE ZALDIVAR is a 87 year old female with 2w pleuritic L chest pain radiating to neck and L arm for about an hour about 3 days a week. It returned yesterday and was helped by ntg from EMS. 1997 hypertension. 1999 chest pain. Stress echo +. Cath nonobstructive. 2001 & 2003 persanine nuc [place]. 2007 adenosine nuc showed apical ischemia but cath normal. 2013 [place]. 2014 cath R30% dominant. Lad & circ 10%. March 2017 afib. L atrium big. MR mild. Diltiazem. No eliquis because of falls. 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 Steven Lives with: Family Smoking Status: Never Smoker Frequency of Alcohol Use: None Hx Recreational Drug Use: No Drugs: None Hx Prescription Drug Abuse: No - Advance Directive Resuscitation Status: Full Code Family History Family History: Hypertension, Malignancy Parental Family History Reviewed: Yes Children Family History Reviewed: Yes Sibling(s) Family History Reviewed.: Yes Medication/Allergy Home Medications: Atorvastatin Calcium [Lipitor 10 mg Tablet] 10 mg PO QHS 06/11/18 Diltiazem HCl [Diltiazem 24Hr ER] 120 mg PO DAILY 06/11/18 Dulaglutide [Trulicity] 0.75 mg SQ Q7D 06/11/18 Lactulose [Kristalose 20 gm Packet] 20 gm PO DAILY 06/11/18 Metformin HCl [Glucophage XR 500 mg Tablet] 1,000 mg PO BID 06/11/18 Nitroglycerin [Nitrostat 0.4 mg (1/150 Gr) Tabs 25/Bottle] 0.4 mg SL Q5MP PRN Ranitidine HCl [Zantac] 300 mg PO DAILY 06/11/18 Ranolazine [Ranexa] 500 mg PO Q12 06/11/18 Ursodiol 300 mg PO DAILY 06/11/18 Ropinirole HCl [Requip 0.25 mg Tablet] 1 tab PO TID 06/12/18 Allergies/Adverse Reactions: simvastatin [Simvastatin] Adverse Reaction (Verified 07/26/17 13:14) Hepatic dysfunction Review of Systems Constitutional: ABSENT: fever(s), headache(s), weight loss Nose, Mouth, and Throat: ABSENT: headache(s), sore throat Cardiovascular: PRESENT: chest pain, dyspnea on exertion. ABSENT: orthropnea Respiratory: PRESENT: dyspnea. ABSENT: cough Gastrointestinal: ABSENT: abdominal pain, constipation, diarrhea, hematochezia, vomiting Genitourinary: ABSENT: dysuria, hematuria Musculoskeletal: PRESENT: back pain Physical Exam Vital Signs: Temp Pulse Resp BP Pulse Ox 98.4 F 58 L 17 140/63 H 100 06/12/18 03:31 06/12/18 03:31 06/12/18 03:31 06/12/18 03:31 06/12/18 03:31 Intake & Output 06/10/18 06/11/18 06/12/18 07:59 07:59 07:59 Weight 155 lb 10.342 oz General appearance: PRESENT: no acute distress Mouth exam: PRESENT: moist Neck exam: ABSENT: lymphadenopathy, tenderness, thyromegaly, tracheal deviation Respiratory exam: PRESENT: clear to auscultation yinka Cardiovascular exam: PRESENT: irregular rhythm, systolic murmur. ABSENT: diastolic murmur Murmur grade: 2 GI/Abdominal exam: ABSENT: mass, organolmegaly, tenderness Neurological exam: PRESENT: oriented to situation Psychiatric exam: PRESENT: appropriate affect Results Laboratory Results: 06/11/18 06/12/18 19:15 01:23 Troponin I < 0.012 < 0.012 Abnormal - 24 hr 06/11/18 06/11/18 06/11/18 15:48 15:48 23:28 RBC 3.04 L Hgb 10.1 L Hct 29.6 L Sodium 145.2 H Chloride 109 H Est GFR (Non-Af Amer) 49 L Glucose 113 H POC Glucose 131 H Impressions: Chest X-Ray 06/11/18 15:35 IMPRESSION: Mild chronic lung changes with no acute cardiopulmonary disease. Chest/Abdomen CTA 06/11/18 15:51 IMPRESSION: NORMAL CTA OF THE CHEST. NO PULMONARY EMBOLI. 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; Z79.4 - long-term (current) use of insulin; Z79.4 - long-term (current ) use of insulin; 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 Is this a current diagnosis for this admission?: Yes (2) Parkinson's disease Is this a current diagnosis for this admission?: Yes (3) Chronic diastolic heart failure Is this a current diagnosis for this admission?: Yes (4) Angina of effort Is this a current diagnosis for this admission?: Yes Plan: nuc & consult [facility] (5) Chronic atrial fibrillation Is this a current diagnosis for this admission?: Yes (6) Malignant neoplasm of upper-inner quadrant of right female breast Qualifiers: Estrogen receptor status: unspecified Qualified Code(s): C50.211 - Malignant neoplasm of upper-inner quadrant of right female breast Is this a current diagnosis for this admission?: Yes (7) Abnormal findings on diagnostic imaging of liver and biliary tract Is this a current diagnosis for this admission?: Yes (8) Gastro-esophageal reflux disease without esophagitis Is this a current diagnosis for this admission?: Yes (9) Constipation by delayed colonic transit Is this a current diagnosis for this admission?: Yes - Inpatient Certification Based on my medical assessment, after consideration of the patient's comorbidities, presenting symptoms, or acuity I expect that the services needed warrant INPATIENT care.: Yes I certify that my determination is in accordance with my understanding of Medicare's requirements for reasonable and necessary INPATIENT services [42 CFR 412.3e].: Yes Medical Necessity: Significant Comorbidiites Make Outpatient Treatment Too Risky , Need Close Monitoring Due to Risk of Patient Decompensation, Need For Continuous Telemetry Monitoring, Risk of Complication if Not Cared For in Hospital, Risk of Diagnosis Which Will Require Inpatient Eval/Care/Monitoring
[2018-06-12 08:15] LABS: ABSOLUTE RETICS # 0.039 10^6/uL (0.028-0.122); RETICULOCYTE COUNT (AUTO) 1.23 % (0.66-2.85)
[2018-06-12 08:42] LABS: IRON(TIBC) 90.4 ug/dL (37-170)
[2018-06-12] MEDS ORDERED: DILTIAZEM HCL 240 MG CAPSULE.CR PO SCH (10:00)
[2018-06-12] MEDS: FAMOTIDINE 20 MG TABLET PO SCH ×2 (10:39→21:36)
[2018-06-12] MEDS: LACTULOSE SYRUP 20 GM/30 ML UDCUP PO SCH (10:39)
[2018-06-12] MEDS ORDERED: REGADENOSON INJ 0.4 MG/5 ML DISP.SYRIN IV ONE (12:23)
--- NOTE | 2018-06-12 13:11 | DRAGON STRESS TEST REPORT ---
INTRAVENOUS LEXISCAN CARDIOLITE STRESS TEST USING SINGLE PHOTON EMMISION COMPUTERIZED TOMOGRAPHIC. DATE OF PROCEDURE: June 12, 2018, INDICATION : Chest pain CARDIAC RISK FACTORS: Diabetes, dyslipidemia RESTING EKG: Sinus rhythm, possible right ventricular hypertrophy versus posterior [place], no acute ST-T wave changes noted STRESS EKG: No significant ST segment changes noted with LexiScan bolus REASON FOR TERMINATION: Protocol. PROCEDURE REPORT: Baseline heart rate 50 beats per minute with blood pressure of 158/61. Patient had no significant complaints. Patient was bolused with Lexiscan 0.4 mg intravenously followed by saline bolus. Heart rate at 2 minutes post bolus 68 with a blood pressure of 125/52. 3 minutes post bolus heart rate 61 with blood pressure of 137/53. No significant EKG changes were noted. Patient had no significant complaints during the procedure or postprocedure. CONCLUSIONS: Normal EKG and hemodynamic response to IV LexiScan. NUCLEAR DATA: At rest the patient was given 12.73 millicuries of technetium 99 sestamibi injected intravenously. As per protocol rest gated SPECT images were obtained. On day of stress test, the patient was given intravenous LexiScan at a dose of 0.4 mg in 5 mL intravenously, followed by flush with normal saline. Subsequently the stress dose of 38.0 millicuries of technetium 99 sestamibi was injected intravenously. As per protocol stress gated images were obtained. NUCLEAR INTERPRETATION: Both raw and processed data were used for interpretation. Visual, qualitative, computer-generated quantitative data was used. There was good myocardial uptake of technetium compound. Motion artifact and soft tissue attenuations were noted. Increased visceral uptake was noted. There was overlap of liver uptake along with uptake of the inferior myocardium, which causes difficulty in interpreting perfusion of the inferior wall. No definitive areas of transient perfusion defect noted, No definitive areas of fixed perfusion defect or scars noted. EKG gated imaging showed LV EF at 62 %, rest and stress gated EF similar visually. No regional wall motion abnormalities are noted. T. I D. ratio was 0.95. Lung heart ratio noted to be within normal limits 0.26. No significant extracardiac and abnormal radiotracer activities were noted. RV free wall uptake was noted to be WNL. IMPRESSION: Also refer to comments under nuclear interpretation. Also test results needs to be interpreted in the context of pretest probability. 1. No definitive areas of transient perfusion defect noted. However there was significant overlap of technetium uptake of the liver and inferior myocardium, inferior wall perfusion cannot be accurately commented upon. Mild ischemia or mild fixed defect involving the inferior wall cannot be ruled out. Clinical correlation is requested. May consider stress echo. Please note that no regional wall motion abnormalities were noted on gated imaging. 2. There is no definitive scintigraphic evidence of myocardial infarction/scar. 3. EKG gated imaging shows left ventricular ejection fraction of approx. 62 %. 4. Clinical correlation requested as occasionally single vessel disease or balanced ischemia could be missed. In approximately 10% of the cases Lexiscan may not cause adequate vasodilatory stress. RECOMMENDATIONS: Aggressive risk factor modification and medical management. Further evaluation may be needed if continued symptoms or other high risk indicators are noted on clinical evaluation. May consider stress echo if clinically indicated. Close cardiology follow-up is also recommended. Clinical correlation with echocardiogram derived ejection fraction. Inability to exercise by itself can lead to increased cardiovascular event risks. Consider cardiology consultation and or follow-up if clinically indicated. I am available for cardiology evaluation and consultation if requested by the hide curer, unless patient already has a back shoe operator. Dr. Steff Alarcon. MRCP Board certified in cardiology and sleep medicine. Board certified in nuclear cardiology, adult echocardiography. FREEDOM
--- NOTE | 2018-06-12 14:20 | EKG REPORT ---
SEVERITY:- ABNORMAL ECG - SINUS RHYTHM MULTIPLE ATRIAL PREMATURE COMPLEXES INCOMPLETE RIGHT BUNDLE BRANCH BLOCK : Confirmed by: Brian Sal MD 12-Jun-2018 14:18:49
[2018-06-12] MEDS: ASPIRIN 81 MG TABLET, CHEWABLE PO SCH (14:30)
[2018-06-12] MEDS: DILTIAZEM HCL 120 MG CAP.SR.24H PO SCH (14:31)
[2018-06-12] MEDS: ENOXAPARIN SODIUM INJ 80 MG/0.8 ML DISP.SYRIN SUBCUT SCH ×2 (14:34→21:36)
[2018-06-12] MEDS: ROPINIROLE HCL 0.25 MG TABLET PO SCH ×3 (14:34→18:38)
[2018-06-12] MEDS: URSODIOL 300 MG CAPSULE PO SCH (14:38)
[2018-06-12] MEDS: ATORVASTATIN CALCIUM 10 MG TABLET PO SCH (21:36)
[2018-06-13 06:38] LABS: HEMATOCRIT 30.1 % (36.0-47.0); HEMOGLOBIN 10.3 g/dL (12.0-15.5); MEAN CORPUSCULAR HEMOGLOBIN 33.4 pg (27.0-33.4); MEAN CORPUSCULAR HGB CONC 34.3 g/dL (32.0-36.0); MEAN CORPUSCULAR VOLUME 97 fl (80-97); PLATELET COUNT 202 10^3/uL (150-450); RED BLOOD COUNT 3.08 10^6/uL (3.72-5.28); RED CELL DISTRIBUTION WIDTH 12.5 % (11.5-14.0); WHITE BLOOD COUNT 5.3 10^3/uL (4.0-10.5)
--- NOTE | 2018-06-13 08:01 | PDOC DISCHARGE SUMMARY ---
General - Admit/Disc Date/PCP Admission Date/Primary Care Provider: 06/11/18 18:57 LANA ALVAREZ MD Discharge Date: 06/13/18 - Discharge Diagnosis (1) Chest pain on breathing Is this a current diagnosis for this admission?: Yes (2) Type 2 diabetes mellitus with diabetic chronic kidney disease Is this a current diagnosis for this admission?: Yes (3) Parkinson's disease Is this a current diagnosis for this admission?: Yes (4) Chronic diastolic heart failure Is this a current diagnosis for this admission?: Yes (5) Angina of effort Is this a current diagnosis for this admission?: Yes (6) Chronic atrial fibrillation Is this a current diagnosis for this admission?: Yes (7) Abnormal findings on diagnostic imaging of liver and biliary tract Is this a current diagnosis for this admission?: Yes (8) Gastro-esophageal reflux disease without esophagitis Is this a current diagnosis for this admission?: Yes (9) Constipation by delayed colonic transit Is this a current diagnosis for this admission?: Yes (10) Malignant neoplasm of upper-inner quadrant of right female breast Is this a current diagnosis for this admission?: Yes - Additional Information Resuscitation Status: Full Code Discharge Diet: Cardiac, Diabetic Discharge Activity: Activity As Tolerated Prescriptions: Insulin Glargine,Hum.rec.anlog [Lantus Solostar] 16 unit SQ QHS 90 Days insuln.pen Home Medications: Atorvastatin Calcium [Lipitor 10 mg Tablet] 10 mg PO QHS 06/11/18 Diltiazem HCl [Diltiazem 24Hr ER] 120 mg PO DAILY 06/11/18 Dulaglutide [Trulicity] 0.75 mg SQ Q7D 06/11/18 Lactulose [Kristalose 20 gm Packet] 20 gm PO DAILY 06/11/18 Metformin HCl [Glucophage XR 500 mg Tablet] 1,000 mg PO BID 06/11/18 Nitroglycerin [Nitrostat 0.4 mg (1/150 Gr) Tabs 25/Bottle] 0.4 mg SL Q5MP PRN Ranitidine HCl [Zantac] 300 mg PO DAILY 06/11/18 Ranolazine [Ranexa] 500 mg PO Q12 06/11/18 Ursodiol 300 mg PO DAILY 06/11/18 Ropinirole HCl [Requip 0.25 mg Tablet] 1 tab PO TID 06/12/18 Insulin Glargine,Hum.rec.anlog [Lant Solostar] 16 unit SQ QHS 90 Days insuln.pen 06/13/18 History of Present Illness Patient complains of: chest pain History of Present Illness: JOSE ZALDIVAR is a 87 year old female with 2w pleuritic L chest pain radiating to neck and L arm for about an hour about 3 days a week. It returned yesterday and was helped by ntg from EMS. 1997 hypertension. 1999 chest pain. Stress echo +. Cath nonobstructive. 2001 & 2003 persanine nuc [place]. 2007 adenosine nuc showed apical ischemia but cath normal. 2013 [place]. 2014 cath R30% dominant. Lad & circ 10%. March 2017 afib. L atrium big. MR mild. Diltiazem. No eliquis because of falls. Hospital Course Hospital Course: PA rulled out. Kiya normal except for inferior liver overlap. Dr Alarcon suggested stress echo which is not on [facility] list. Still has pleuritic pain. Has had 6 nucs & 3 caths, last in 2014. She does not recall these. Since last year she has taken ursodiol for sludge. Hct30. Ferritin b12 ibc ok. Physical Exam Vital Signs: Temp Pulse Resp BP Pulse Ox 98.6 F 68 16 129/58 H 99 06/13/18 03:35 06/13/18 03:35 06/13/18 03:35 06/13/18 03:35 06/13/18 03:35 Intake & Output 06/11/18 06/12/18 06/13/18 07:59 07:59 07:59 Intake Total 866 Output Total 425 Balance -425 866 Weight 155 lb 10.342 oz 156 lb 11.979 oz General appearance: PRESENT: no acute distress Respiratory exam: PRESENT: clear to auscultation yinka Cardiovascular exam: ABSENT: diastolic murmur, irregular rhythm, systolic murmur Murmur grade: 2 GI/Abdominal exam: ABSENT: mass, organolmegaly, tenderness Extremities exam: ABSENT: pedal edema Neurological exam: PRESENT: alert Psychiatric exam: PRESENT: appropriate affect Results Laboratory Results: 06/13/18 05:50 06/12/18 06/12/18 06/13/18 07:48 07:48 05:50 WBC 5.3 RBC 3.08 L Hgb 10.3 L Hct 30.1 L MCV 97 MCH 33.4 MCHC 34.3 RDW 12.5 Plt Count 202 Retic Count (auto) 1.23 Absolute Retic 0.039 Iron 90.4 TIBC 274 % Saturation 33 Ferritin 43.40 Vitamin B12 292.0 Folate 17.70 06/11/18 06/12/18 06/12/18 19:15 01:23 07:48 Troponin I < 0.012 < 0.012 < 0.012 06/12/18 13:20 Troponin I < 0.012 Impressions: Chest X-Ray 06/11/18 15:35 IMPRESSION: Mild chronic lung changes with no acute cardiopulmonary disease. Chest/Abdomen CTA 06/11/18 15:51 IMPRESSION: NORMAL CTA OF THE CHEST. NO PULMONARY EMBOLI. Qualifiers - * PATIENT BEING DISCHARGED WITH ANY OF THE FOLLOWING DIAGNOSIS: No Plan Discharge Plan: home on usual meds. 6d ov me. 2w ov Dr Alarcon ?stress echo.
[2018-06-13] MEDS: ROPINIROLE HCL 0.25 MG TABLET PO SCH (09:46)
[2018-06-13] MEDS: FAMOTIDINE 20 MG TABLET PO SCH (09:46)
[2018-06-13] MEDS: DILTIAZEM HCL 120 MG CAP.SR.24H PO SCH (09:46)
[2018-06-13] MEDS: ASPIRIN 81 MG TABLET, CHEWABLE PO SCH (09:46)
[2018-06-13] MEDS: LACTULOSE SYRUP 20 GM/30 ML UDCUP PO SCH (09:51)
[2018-06-13] MEDS: ENOXAPARIN SODIUM INJ 80 MG/0.8 ML DISP.SYRIN SUBCUT SCH (09:51)
[2018-06-13] MEDS: URSODIOL 300 MG CAPSULE PO SCH (09:55)
[2018-06-13 10:18] VITALS: BP 160/61
--- NOTE | 2018-06-13 15:25 | PDOC CONSULTATION ---
Consultation Consult Date: 06/12/18 Attending physician:: LANA ALVAREZ Consult reason:: Chest pain History of Present Illness Admission Date/PCP: 06/11/18 18:57 LANA ALVAREZ MD Patient complains of: Chest pain History of Present Illness: Patient was seen yesterday in the evening of June 12 in consultation. Somehow dictation got missed. JOSE ZALDIVAR is a 87 year old female with 2w pleuritic L chest pain radiating to neck and L arm for about an hour about 3 days a week. It returned yesterday and was helped by ntg from EMS. 1997 hypertension. 1999 chest pain. Stress echo +. Cath nonobstructive. 2001 & 2003 persanine nuc [place]. 2007 adenosine nuc showed apical ischemia but cath normal. 2013 [place]. 2014 cath R30% dominant. Lad & circ 10%. March 2017 afib. L atrium big. MR mild. Diltiazem. No eliquis because of falls. Patient has difficulty giving a good history. She speaks quite slowly. Patient did not add anything more to above history. Patient did have a nuclear stress test, these results were reviewed and medical management was recommended. Past Medical History Cardiac Medical History: Reports: Congestive Heart Failure - ., Coronary Artery Disease - 2014 nonobstructing, Myocardial Infarction, Hyperlipidema, Hypertension Pulmonary Medical History: Reports: Bronchitis, Pneumonia Denies: Asthma, Chronic Obstructive Pulmonary Disease (COPD), Tuberculosis Neurological Medical History: Denies: Seizures Endocrine Medical History: Reports: Diabetes Mellitus Type 2 Malignancy Medical History: Reports: Breast Cancer - 2010 Rductal invasive T1c surgery radiation ansatrozole GI Medical History: Reports: Gastroesophageal Reflux Disease Denies: Hepatitis, Hiatal Hernia Musculoskeltal Medical History: Reports: Arthritis Psychiatric Medical History: Reports: Dementia Hematology: Denies: Anemia, Sickle Cell Disease Past Surgical History Past Surgical History: Reports: Appendectomy, Cardiac Catheterization, Hysterectomy, Mastectomy - Right lumpectomy Denies: Amputation, Pacemaker Social History Information Source: Patient Lives with: Family Smoking Status: Never Smoker Frequency of Alcohol Use: None Hx Recreational Drug Use: No Drugs: None Hx Prescription Drug Abuse: No - Advance Directive Resuscitation Status: Full Code Family History Family History: Hypertension, Malignancy Parental Family History Reviewed: Yes Children Family History Reviewed: Yes Sibling(s) Family History Reviewed.: Yes Medication/Allergy Home Medications: Atorvastatin Calcium [Lipitor 10 mg Tablet] 10 mg PO QHS 08/29/18 Diltiazem HCl [Diltiazem 24Hr ER] 120 mg PO DAILY 06/11/18 Dulaglutide [Trulicity] 0.75 mg SQ Q7D 06/11/18 Lactulose [Kristalose 20 gm Packet] 20 gm PO DAILY 06/11/18 Metformin HCl [Glucophage XR 500 mg Tablet] 1,000 mg PO BID 06/11/18 Nitroglycerin [Nitrostat 0.4 mg (1/150 Gr) Tabs 25/Bottle] 0.4 mg SL Q5MP PRN Ranitidine HCl [Zantac] 300 mg PO DAILY 06/11/18 Ranolazine [Ranexa] 500 mg PO Q12 06/11/18 Ursodiol 300 mg PO DAILY 06/11/18 Ropinirole HCl [Requip 0.25 mg Tablet] 1 tab PO TID 06/12/18 Insulin Glargine,Hum.rec.anlog [Lantus Solostar] 16 unit SQ QHS 90 Days insuln.pen 06/13/18 Allergies/Adverse Reactions: simvastatin [Simvastatin] Adverse Reaction (Verified 07/26/17 13:14) Hepatic dysfunction Review of Systems Review of Systems: Please see history of present illness and past medical history as wall. Constitutional: No fever or chills reported. Patient has noted some memory problems Head : No recent chronic headaches, recent head injury. Eyes: No recent eye pain, diplopia, redness, discharge, acute visual changes. Ears: No recent chronic ear pain, acute hearing loss, ear discharge. Oral cavity: No recent ulcerations, bleeding, oral cavity discomfort. Neck: No recent acute neck pain reported. Hematologic: No recent easy bruising or bleeding. Lymphatic: No recent lymph node enlargement reported. Cardiovascular system review: See history of present illness. Respiratory system review: No hemoptysis or blood clots in the lungs reported. Mild Shortness of breath on exertion Gastrointestinal system review: Negative for any recent acute hematemesis, melena. Genitourinary system review: No recent acute or chronic hematuria, flank pain, UTI etc. reported. Skin system review: Negative for any recent abnormal bruising, no rash, no pruritus reported. Neurologic: No prior history of strokes, mini strokes, seizure disorder. Patient has been noted to have mild dementia but does answer questions. Psychologic: No history of major psychosis or major depression reported. Patient has been noted to have memory problems. Musculoskeletal: Minor aches and pains reported. No acute joint swelling reported. Endocrine: No recent polyuria, polydipsia, recent heat or cold intolerance. Physical Exam Vital Signs: Temp Pulse Resp BP Pulse Ox 98.6 F 62 16 129/58 H 99 06/13/18 08:43 06/13/18 08:43 06/13/18 08:43 06/13/18 08:43 06/13/18 08:43 Intake & Output 06/12/18 06/13/18 06/14/18 06:59 06:59 06:59 Intake Total 866 Output Total 425 Balance -425 866 Weight 70.6 kg 71.1 kg Exam: GENERAL: well-nourished and in no acute distress. Alert and oriented x 2 HEAD: Atraumatic, normocephalic. EYES: Pupils equal round and reactive to light, extraocular movements intact, sclera anicteric, conjunctiva are normal. ENT: TMs normal, nares patent, oropharynx clear without exudates. Moist mucous membranes. No oral ulcerations or bleeding gums noted NECK: supple without lymphadenopathy. Trachea is central. No cervical or axillary lymphadenopathy noted. Carotids are 2+, JVD WNL LUNGS: Respiration seems nonlabored, no significant accessory muscle action noted. Breath sounds clear to auscultation bilaterally and equal noted. No wheezes rales or rhonchi noted. No significant dullness noted on percussion. CHEST: Palpation of the chest wall shows no significant chest wall tenderness. HEART: [employer], No PSH, 1/6 THOMAS aortic area, 1/6 dia systolic murmur mitral area, no rubs, no gallops. ABDOMEN: Soft, no significant tenderness appreciated, normoactive bowel sounds. No guarding, no rebound. No rigidity noted . No masses appreciated. EXTREMITIES: Pedal pulses are 1-2+, no calf tenderness noted. No clubbing or cyanosis. 1+ pedal edema noted NEUROLOGICAL: Focused neurological exam showed no significant neurologic deficit. Normal speech, no focal weakness appreciated. PSYCH: Normal mood, normal affect. Judgment and insight not checked SKIN: No significant ecchymosis, skin is noted to be warm. MUSCULOSKELETAL EXAM: No significant acute joint swelling noted. Results Laboratory Results: 06/13/18 05:50 06/13/18 05:50 WBC 5.3 RBC 3.08 L Hgb 10.3 L Hct 30.1 L MCV 97 MCH 33.4 MCHC 34.3 RDW 12.5 Plt Count 202 06/11/18 06/12/18 06/12/18 19:15 01:23 07:48 Troponin I < 0.012 < 0.012 < 0.012 06/12/18 13:20 Troponin I < 0.012 EKG Comments: Sinus rhythm, no acute ST-T wave changes are noted, APCs are noted Impressions: Chest X-Ray 06/11/18 15:35 IMPRESSION: Mild chronic lung changes with no acute cardiopulmonary disease. Chest/Abdomen CTA 06/11/18 15:51 IMPRESSION: NORMAL CTA OF THE CHEST. NO PULMONARY EMBOLI. Assessment & Plan - Diagnosis (1) Precordial chest pain Is this a current diagnosis for this admission?: Yes (2) CAD (coronary artery disease) Qualifiers: Coronary Disease-Associated Artery/Lesion type: [place] artery [place] vs. transplanted heart: [place] heart Associated angina: angina presence unspecified Qualified Code(s): I25.10 - Atherosclerotic heart disease of [place] coronary artery without angina pectoris Is this a current diagnosis for this admission?: Yes (3) Hypertension Qualifiers: Hypertension type: essential hypertension Qualified Code(s): I10 - Essential (primary) hypertension Is this a current diagnosis for this admission?: Yes (4) Hyperlipidemia Qualifiers: Hyperlipidemia type: unspecified Qualified Code(s): E78.5 - Hyperlipidemia , unspecified Is this a current diagnosis for this admission?: Yes (5) Atrial fibrillation Qualifiers: Atrial fibrillation type: paroxysmal Qualified Code(s): I48.0 - Paroxysmal atrial fibrillation Is this a current diagnosis for this admission?: Yes (6) Gastro-esophageal reflux disease without esophagitis Is this a current diagnosis for this admission?: Yes (7) CKD (chronic kidney disease) stage 2, GFR 60-89 ml/min Is this a current diagnosis for this admission?: Yes - Notes Notes: Chest pain: This was evaluated with a nuclear stress test. Overall felt to be low risk. Inferior wall perfusion cannot be accurately commented upon but feels that medical therapy is an adequate option given the low risk nature and patient other significant comorbid diagnosis as well at advanced age. CAD: Symptomatically stable. EKGs has been unremarkable and enzymes has been negative. Chest pain complaints felt to be atypical and noncardiac. Hypertension: Blood pressure goal should be 140/90 or less. Dyslipidemia: Continue statin therapy. Atrial fibrillation: Paroxysmal. During this admission patient was noted to be in sinus rhythm. Not on chronic anticoagulation due to increased fall risk. Gastroesophageal reflux disease: This is in the differential diagnosis. Recommend proton pump inhibitor. Chronic kidney disease: Currently stable. Creatinine seems to be better and improved. - Time Time Spent: 30 to 50 Minutes - More than 50% of the time spent coordinating care , discussing management plans with involved caregivers. Management plans discussed with involved personnels. Medical decision making was of moderate to high complexity, patient's has multiple comorbidities. Medications reviewed and adjusted accordingly: Yes
--- NOTE | 2018-06-13 15:27 | PDOC PROGRESS REPORT ---
Subjective Progress Note for:: 06/13/18 Subjective:: Patient speaks very little but denies any chest pain. Patient was seen prior to discharge. Patient seems to be doing better with gradual improvement. Pt is denying any chest arm or neck discomfort. Patient denying any PND, orthopnea. Patient denied any sustained palpitations, dizziness, syncope, near syncope. Patient denying any fever chills. Patient denying any other significant discomfort. Patient is maintaining sinus rhythm. Review of systems: Rest review of systems negative. Medications: Medications have been reviewed. Reason For Visit: CHEST PAIN Physical Exam Vital Signs: Temp Pulse Resp BP Pulse Ox 98.6 F 62 16 129/58 H 99 06/13/18 08:43 06/13/18 08:43 06/13/18 08:43 06/13/18 08:43 06/13/18 08:43 Intake & Output 06/12/18 06/13/18 06/14/18 06:59 06:59 06:59 Intake Total 866 Output Total 425 Balance -425 866 Weight 70.6 kg 71.1 kg Exam: GENERAL: well-nourished and in no acute distress. Alert and oriented x3 HEAD: Atraumatic, normocephalic. EYES: Pupils equal round and reactive to light, extraocular movements intact, sclera anicteric, conjunctiva are normal. ENT: TMs normal, nares patent, oropharynx clear without exudates. Moist mucous membranes. No oral ulcerations or bleeding gums noted NECK: supple without lymphadenopathy. Trachea is central. No cervical or axillary lymphadenopathy noted. Carotids are 2+, JVD WNL LUNGS: Respiration seems nonlabored, no significant accessory muscle action noted. Breath sounds clear to auscultation bilaterally and equal noted. No wheezes rales or rhonchi noted. No significant dullness noted on percussion. CHEST: Palpation of the chest wall shows no significant chest wall tenderness. HEART: [place] [employer], No PSH, 1/6 THOMAS aortic area, 1/6 dia systolic murmur mitral area, no rubs, no gallops. ABDOMEN: Soft, no significant tenderness appreciated, normoactive bowel sounds. No guarding, no rebound. No rigidity noted . No masses appreciated. EXTREMITIES: Pedal pulses are 1-2+, no calf tenderness noted. No clubbing or cyanosis. Trace to 1+ pedal edema noted NEUROLOGICAL: Focused neurological exam showed no significant neurologic deficit. Normal speech, no focal weakness appreciated. PSYCH: Normal mood, normal affect. Judgment and insight within normal limits. SKIN: No significant ecchymosis, skin is noted to be warm. MUSCULOSKELETAL EXAM: No significant acute joint swelling noted. Results Laboratory Results: 06/13/18 05:50 06/13/18 05:50 WBC 5.3 RBC 3.08 L Hgb 10.3 L Hct 30.1 L MCV 97 MCH 33.4 MCHC 34.3 RDW 12.5 Plt Count 202 06/11/18 06/12/18 06/12/18 19:15 01:23 07:48 Troponin I < 0.012 < 0.012 < 0.012 06/12/18 13:20 Troponin I < 0.012 EKG Comments: Shows sinus rhythm without any sustained tachycardia or bradycardia. Impressions: Chest X-Ray 06/11/18 15:35 IMPRESSION: Mild chronic lung changes with no acute cardiopulmonary disease. Chest/Abdomen CTA 06/11/18 15:51 IMPRESSION: NORMAL CTA OF THE CHEST. NO PULMONARY EMBOLI. Assessment & Plan - Diagnosis (1) Precordial chest pain Is this a current diagnosis for this admission?: Yes (2) Atrial fibrillation Qualifiers: Atrial fibrillation type: paroxysmal Qualified Code(s): I48.0 - Paroxysmal atrial fibrillation Is this a current diagnosis for this admission?: Yes (3) CAD (coronary artery disease) Qualifiers: Coronary Disease-Associated Artery/Lesion type: [place] artery [place] vs. transplanted heart: [place] heart Associated angina: angina presence unspecified Qualified Code(s): I25.10 - Atherosclerotic heart disease of [place] coronary artery without angina pectoris Is this a current diagnosis for this admission?: Yes (4) Diabetes mellitus, type 2 Qualifiers: Diabetes mellitus senior care insulin use: unspecified [employer] insulin use status Diabetes mellitus complication status: with unspecified complications Qualified Code(s): E11.8 - Type 2 diabetes mellitus with unspecified complications (5) Gastro-esophageal reflux disease without esophagitis Is this a current diagnosis for this admission?: Yes (6) Dementia Qualifiers: Dementia type: unspecified type Dementia behavioral disturbance: without behavioral disturbance Qualified Code(s): F03.90 - Unspecified dementia without behavioral disturbance (7) CKD (chronic kidney disease) stage 2, GFR 60-89 ml/min Is this a current diagnosis for this admission?: Yes - Notes Notes: Chest pain: Currently stable with negative enzymes and low risk stress test. Agree with discharging patient. I will be happy to follow patient in the office. CAD: Symptomatically stable. EKGs has been unremarkable and enzymes has been negative. Chest pain complaints felt to be atypical and noncardiac. Hypertension: Blood pressure goal should be 140/90 or less. Dyslipidemia: Continue statin therapy. Atrial fibrillation: Paroxysmal. During this admission patient was noted to be in sinus rhythm. Not on chronic anticoagulation due to increased fall risk. Gastroesophageal reflux disease: This is in the differential diagnosis. Recommend proton pump inhibitor. Chronic kidney disease: Currently stable. Creatinine seems to be better and improved. - Time Time with patient: Greater than 35 minutes - More than 50% of the time spent coordinating care, discussing management plans with involved caregivers. Management plans discussed with involved personnels. Medical decision making was of moderate to high complexity, patient's has multiple comorbidities. Nuclear stress test results were reviewed with the patient, patient questions were answered. It was felt that medical management is initially recommended. Will be happy to follow patient in the office. Smoking Education Provided: Over 3 minutes
== END 2018-06-13 10:39 | disposition home or self-care (01) ==
LOC: ER 15:30 → EH 18:57 → 4S 06-12 00:42
PROVIDERS: ADMIT Family Medicine; ATTEND Family Medicine
DX: R07.1 Chest pain on breathing (principal); I13.0 Hypertensive heart and chronic kidney disease with heart failure and stage 1 through stage 4 chronic kidney disease, or unspecified chronic kidney disease; E11.22 Type 2 diabetes mellitus with diabetic chronic kidney disease; N18.2 Chronic kidney disease, stage 2 (mild); I50.32 Chronic diastolic (congestive) heart failure; I25.118 Atherosclerotic heart disease of native coronary artery with other forms of angina pectoris; I48.2 Chronic atrial fibrillation; R93.2 Abnormal findings on diagnostic imaging of liver and biliary tract; K21.9 Gastro-esophageal reflux disease without esophagitis; K59.01 Slow transit constipation; C50.211 Malignant neoplasm of upper-inner quadrant of right female breast; F03.90 Unspecified dementia, unspecified severity, without behavioral disturbance, psychotic disturbance, mood disturbance, and anxiety; E78.5 Hyperlipidemia, unspecified; M54.9 Dorsalgia, unspecified; G20 Parkinson's disease; M16.12 Unilateral primary osteoarthritis, left hip; M54.32 Sciatica, left side; M54.31 Sciatica, right side; Z79.899 Other long term (current) drug therapy; I25.2 Old myocardial infarction; Z79.4 Long term (current) use of insulin; Z92.3 Personal history of irradiation; Z90.49 Acquired absence of other specified parts of digestive tract; Z82.49 Family history of ischemic heart disease and other diseases of the circulatory system; Z98.890 Other specified postprocedural states
CPT/HCPCS: 93005 ×2; 99285; 96372; 36415 ×3; 82553; 82962 ×3; 82607; 82550; 82728; 82746; 83540; 83550; 85025; 85027; 85045; 80053; 84484 ×2; 93017; 71045; 78452; 71275; 93010 ×2; G0378 ×3; A9500; J2785; A9270 ×14; J3490 ×2; J1650 ×2; Q9969; J1815